=== PATIENT | female | born 1965 | race Caucasian/White ===

== ENCOUNTER 2018-06-04 18:29 | Emergency (ER) | payer OTHER, SELFPAY ==
[2018-06-04 18:29] VITALS: BP 163/92; PULSE 90; RESP 18; TEMP 36.6; O2SAT 93; BMI 31.1
--- NOTE | 2018-06-04 19:18 | ED.VISSUMM ---
- ER Visit Summary Date of Service: 06/04/18 Chief Complaint: Back pain History of Present Illness: The patient is a 52 F prior history of sciatica and migraine headaches. Currently taking Advil as needed. Patient states for the last 3 weeks she has had lower back pain. Radiating across her lower back along her iliac crests. She does have radiation to both legs. Worse on the left. She denies any bowel or bladder incontinence. She has had some intermittent tingling in her left foot. She denies any weakness. She denies any urinary or bowel retention. She is never had back surgery. She denies any fever. No cancer history. No drastic weight change. No falls or trauma. No fever. She states typically her sciatica resolves and this is been lasting and is slightly worse. Physical Examination: Middle-aged female. No acute distress. Vital signs are stable afebrile. HEENT exam unremarkable. Neck nontender. Lungs clear to auscultation bilaterally. Heart regular rate and rhythm. Abdomen is soft and nontender. Normal bowel sounds. No pulsatile mass. Patient moving all 4 extremities. They are neurovascularly intact. Back is tender along the L4-5 area. There is no ecchymosis or bruising. No redness or warmth. Neurologic exam is normal. Normal motor strength and sensation. Both upper and lower extremities. 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 5 out of 5 dorsi and plantar flexion. No cauda equina. She does have a straight leg raise primarily on the left. Pain worsens with leg raise and also radiates down her left buttock and hamstring. There is no foot drop. No motor or sensory loss. Test Results: None Emergency Department Course and Treatment: Continue her Advil for pain. [place] 20 no refill. Follow-up with a local physician MRI if not improving Treatment Plan: Return if increasing pain, incontinence, retention or weakness. [place] for pain Advil for inflammation. Disposition: Discharge Impression: Acute low back pain with radiculopathy This note was generated with [employer] dictation software. It may contain incorrect words, spelling, and punctuation that were not noted in review of the chart prior to signing ED Disposition - Plan for ED Patient: Chief Complaint: Back Referrals: Care Physician,No Primary [Primary Care Provider] -
[2018-06-04 19:22] VITALS: BP 146/82; PULSE 77; RESP 16; O2SAT 98
--- NOTE | 2018-06-04 19:22 | ED.DCSUM_ITS ---
- ER Visit Summary Date of Service: 06/04/18 Chief Complaint: Back pain History of Present Illness: The patient is a 52 F prior history of sciatica and migraine headaches. Currently taking Advil as needed. Patient states for the last 3 weeks she has had lower back pain. Radiating across her lower back along her iliac crests. She does have radiation to both legs. Worse on the left. She denies any bowel or bladder incontinence. She has had some intermittent tingling in her left foot. She denies any weakness. She denies any urinary or bowel retention. She is never had back surgery. She denies any fever. No cancer history. No drastic weight change. No falls or trauma. No fever. She states typically her sciatica resolves and this is been lasting and is slightly worse. Physical Examination: Middle-aged female. No acute distress. Vital signs are stable afebrile. HEENT exam unremarkable. Neck nontender. Lungs clear to auscultation bilaterally. Heart regular rate and rhythm. Abdomen is soft and nontender. Normal bowel sounds. No pulsatile mass. Patient moving all 4 extremities. They are neurovascularly intact. Back is tender along the L4-5 area. There is no ecchymosis or bruising. No redness or warmth. Neurologic exam is normal. Normal motor strength and sensation. Both upper and lower extremities. 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 5 out of 5 dorsi and plantar flexion. No cauda equina. She does have a straight leg raise primarily on the left. Pain worsens with leg raise and also radiates down her left buttock and hamstring. There is no foot drop. No motor or sensory loss. Test Results: None Emergency Department Course and Treatment: Continue her Advil for pain. [place] 20 no refill. Follow-up with a local physician MRI if not improving Treatment Plan: Return if increasing pain, incontinence, retention or weakness. [place] for pain Advil for inflammation. Disposition: Discharge Impression: Acute low back pain with radiculopathy This note was generated with [employer] dictation software. It may contain incorrect words, spelling, and punctuation that were not noted in review of the chart prior to signing ED Disposition - Plan for ED Patient: Chief Complaint: Back Referrals: Care Physician,No Primary [Primary Care Provider] -
--- NOTE | 2018-06-04 19:22 | ED.DEP ---
ED Disposition - Plan for ED Patient: Disposition: Home or Assisted Living Chief Complaint: Back Instructions: ED Neck Back Pain General Prescriptions: Hydrocodone/Acetaminophen [[place] 10-325 Tablet] 1 ea PO Q6H PRN PRN #20 tab PRN Reason: Pain Referrals: Slava Burns MD [STAFF PHYSICIAN] - As soon as possible Javier Torres MD [STAFF PHYSICIAN] - As soon as possible Additional Instructions: Follow up with either Dr. Slava Burns of orthopedics or Dr. Javier Torres the family practice doctor for further evaluation. If this is not improving you may need an MRI to evaluate your back and look for possible degenerative disc disease. Motrin for pain and inflammation. [place] for pain. Plenty of fluids and fiber to prevent constipation. Return if fever, increasing pain, weakness in her lower extremities or bowel or bladder incontinence or retention.
--- NOTE | 2018-06-04 19:25 | DCINST.ED_ITS ---
ED Disposition - Plan for ED Patient: Disposition: Home or Assisted Living Chief Complaint: Back Instructions: ED Neck Back Pain General Prescriptions: Hydrocodone/Acetaminophen [[place] 10-325 Tablet] 1 ea PO Q6H PRN PRN #20 tab PRN Reason: Pain Referrals: Slava Burns MD [STAFF PHYSICIAN] - As soon as possible Javier Torres MD [STAFF PHYSICIAN] - As soon as possible Additional Instructions: Follow up with either Dr. Slava Burns of orthopedics or Dr. Javier Torres the family practice doctor for further evaluation. If this is not improving you may need an MRI to evaluate your back and look for possible degenerative disc disease. Motrin for pain and inflammation. [place] for pain. Plenty of fluids and fiber to prevent constipation. Return if fever, increasing pain, weakness in her lower extremities or bowel or bladder incontinence or retention.
[2018-06-04] MEDS: HYDROcodone Bitartrate/Apap 5/325 Tablet PO (19:31)
--- OUTSIDE RECORDS SUMMARY | 2018-07-31 10:04 | XMS RPT_ITS ---
:1965 Author Organization OHIP Care Team Providers Name Role Phone Patrice Seb Attending Unavailable Primay Care Physicia, No Primary Care Unavailable Javier Torres Attending Unavailable Javier Torres Referring Unavailable Primay Care Physicia, No Primary Care Unavailable Leonard Franks Attending Unavailable Leonard Franks Primary Care Unavailable Leonard Franks Referring Unavailable PROBLEMS PROBLEMS DATE TYPE CONDITION / CODE ATTENDING STATUS SOURCE 06/14/2018 Unknown Z72.0 - Tobacco use Loenard Franks / Z72.0(ICD-10) E [facility] Repository 06/14/2018 Unknown M25.559 - Pain in Leonard Franks unspecified hip / [facility] M25.559(ICD-10) Hospital Repository 06/14/2018 Unknown 305.1 - Tobacco use Leonard Franks disorder / [facility] 305.1(ICD-9) Hospital Repository 06/14/2018 Unknown 278.01 - Morbid Leonard Franks obesity / [facility] 278.01(ICD-9) Hospital Repository 06/14/2018 Unknown E66.01 - Morbid Leonard Franks (severe) obesity due E [facility] to excess calories / Hospital E66.01(ICD-10) Repository 06/07/2018 Unknown M54.42 - Javier Julio Active [place] with sciatica, left Community side / Hospital M54.42(ICD-10) Repository 06/05/2018 Unknown M51.37 - Other Seb Ibrahim Active [place] intervertebral disc Community degeneration, Hospital lumbosacral region / Repository M51.37(ICD-10) PROCEDURES PROCEDURES No Procedure Records FoundRESULTS RESULTS HIPS B/L MIN 2 Observed: 06/14/2018 Status: F Source: [place] VIEWS W/ PELVIS 11:59 [place] [facility] [place] [facility] Imaging Services [address] [place] [address] Hips B/L min 2 views w/ Pelvis MR#: [id number] Acct: [id number] Name: REBECCA MARIN Rep #: [id number] : 1965 F 52 From: Nellie Burns MD PCP: Leonard Franks MD Status: REG CLI Study: Hips B/L min 2 views w/ Pelvis Date of Exam: 06/14/18 Exam# [id number] Ordering Dr: Leonard Franks MD STUDY: X-RAY - BILATERAL HIPS WITHOUT PELVIS REASON FOR EXAM: Female, 52 years old. Bilateral hip pain. Right hip pain is worse on the left. TECHNIQUE: 2 views of the right hip, and 2 views of the left hip were obtained. COMPARISON: Prior comparison studies are not available for review at this time. FINDINGS: Right Hip: Normal right femoral head, neck, intertrochanteric region and visualized proximal femur. Normal right acetabulum. Normal right hip joint. Left Hip: Normal left femoral head, neck, intertrochanteric region and visualized proximal femur. Normal left acetabulum. Normal left hip joint. Normal bilateral superior and inferior pubic rami , ischial tuberosities and pubic symphysis. RAD/Hips B/L min 2 views w/ Pelvis IMPRESSION: No radiographic evidence for acute fracture. Electronically Signed: Nellie Bunrs MD at 10:01 EST , Service support , CC: Leonard Franks MD [employer] Professor: Signed CBC W/DIFF, AUTOMATED Collected: 06/14/2018 Status: F Source: [place] 11:51 AM [facility] [place] TYPE CODE TESTS RESULT OUT OF RANGE REFERENCE UNITS LAB L100.1000 4.4-11.0 K/mm3 Normal WBC 10.9 LAB L100.1200 4.2-5.4 M/mm3 Normal RBC 5.24 LAB L100.1300 12.0-15.0 g/dl High HGB 16.2 LAB L100.1400 37-47 % High HCT 48.6 LAB L100.1500 81-99 fL Normal MCV 92.7 LAB L100.1600 27.0-32.0 pg Normal MCH 30.9 LAB L100.1700 32-36 g/gl Normal MCHC 33.3 LAB L100.1810 11.6-14.6 % Normal RDW CV 13.2 LAB L100.1820 35.1-43.9 fl High RDW SD 45.1 LAB L100.1900 150-450 K/mm3 Normal PLT 218 LAB L100.2000 6.2-12.0 fl Normal MPV 11.2 LAB L100.2100 47-70 % Normal NEUT% 64.8 LAB L100.2200 19-41 % Normal LY% 27.9 LAB L100.2300 0-10 % Normal MONO% 4.6 LAB L100.2400 0-5 % Normal EO% 2.3 LAB L100.2500 0-1 % Normal BASO% 0.2 LAB L100.2550 0.0-0.9 % Normal IM GRAN % 0.200 Result Comment: IG% - Immature Granulocytes (promyelocytes, myelocytes and metamyelocytes) > 1% indicates that a LEFT SHIFT is Present. LAB L100.2620 2.0-7.7 X10 3/uL Normal Absolute Neut 7.1 LAB L100.2720 0.83-4.51 X10 3/ul Normal Absolute Lymph 3.04 Performed By: #### L100.0100, L500.4050, L500.4100, L501.9520 #### [facility] [address] [place], [place], [address] COMPREHENSIVE METABOLIC Collected: 06/14/2018 Status: F Source: [place] SERRANO 11:51 AM [facility] [place] Order Comment: UTO URINE SPECIMEN TYPE CODE TESTS RESULT OUT OF RANGE REFERENCE UNITS LAB L501.0100 74-106 mg/dL Normal GLU 89 Result Comment: Please note revised GLUCOSE reference range effective 2017. LAB L501.1000 7-18 mg/dL Normal BUN 17 LAB L501.1100 0.55-1.02 mg/dL Normal CREAT,SERUM 0.86 Result Comment: The validity of the calculated GFR AND GFRAA in patients over 70 years has not been determined. Clinical correlation is essential. LAB L501.1110 >60 mL/min Normal EST GFR 74 Result Comment: Non- GFR Calc LAB L501.1115 >60 mL/min Normal EST GFR - AA 90 Result Comment: GFR Calc LAB L501.1300 10-20 RATIO Normal BUN/CRE 19.8 LAB L501.1500 6.4-8.2 g/dL T Normal PROT 8.0 LAB L501.1800 3.2-5.0 g/dL Normal ALB 3.8 LAB L501.1950 2.2-4.2 g/dL Normal GLOB 4.2 LAB L501.2000 0.9-2.4 RATIO Normal A/G 0.9 LAB L501.2200 8.5-10.1 mg/dL CA Normal 9.2 LAB L501.4100 15-37 U/L Normal AST 17 LAB L501.4305 45-117 U/L High ALK P 129 LAB L501.4405 13-56 U/L Normal ALT 44 LAB L501.4600 0.20-1.00 mg/dL T Normal BILI 0.50 LAB L501.5300 136-145 mmol/L NA Normal 138 LAB L501.5600 3.5-5.1 mmol/L K Normal 4.5 LAB L501.5900 98-107 mmol/L CL Normal 101 LAB L501.6100 21.0-32.0 mmol/L Normal CO2 30.0 LAB L501.6200 5-15 Normal GAP 7 Performed By: #### L100.0100, L500.4050, L500.4100, L501.9520 #### [facility] [address] [place], [address] LIPID PROFILE Collected: 06/14/2018 Status: F Source: [place] 11:51 AM [facility] [place] Order Comment: UTO URINE SPECIMEN TYPE CODE TESTS RESULT OUT OF RANGE REFERENCE UNITS LAB L501.4900 200 mg/dL High CHOL 245 Result Comment: <200 mg/dL Desirable 200-240 mg/dL Borderline >240 mg/dL High Risk LAB L501.5000 mg/dL High TRIG 214 Result Comment: The drugs N-Acetylcysteine and Metamizole may falsely depress this assay. Serum Triglycerides Reference Interval Normal <150 mg/dL Borderline high 150 - 199 mg/dL High 200 - 499 mg/dL Very High > or = 500 mg/dL LAB L501.6400 mg/dL Normal HDL 43 Result Comment: The drugs N-Acetylcysteine and Metamizole may falsely depress this assay. Reference Range HDL <40 mg/dL Low HDL Cholesterol HDL >or= 60 mg/dL High HDL Cholesterol LAB L501.6500 0-130 mg/dL High LDL 159 LAB L501.6600 5-40 mg/dL High VLDL 43 Performed By: #### L100.0100, L500.4050, L500.4100, L501.9520 #### [facility] [address] [place], [address] THYROID STIM HORMONE Collected: 06/14/2018 Status: F Source: [place] (TSH) 11:51 AM [facility] [place] Order Comment: UTO URINE SPECIMEN TYPE CODE TESTS RESULT OUT OF RANGE REFERENCE UNITS LAB L501.9520 0.358-3.74 uIU/mL Normal TSH 1.15 Performed By: #### L100.0100, L500.4050, L500.4100, L501.9520 #### [facility] [address] [place], [address] L/S SPINE MIN 4 Observed: 06/07/2018 Status: F Source: [place] VIEWS 12:31 PM [facility] RE[facility]IT[facility] Imaging Services [address] [place] [address] L/S Spine Min 4 Views MR#: [id number] Acct: [id number] Name: REBECCA MARIN Rep #: [id number] : 1965 F 52 From: Cosme Whittaker MD PCP: Care Physician, No Primary Status: REG CLI Study: L/S Spine Min 4 Views Date of Exam: 06/07/18 Exam# [id number] Ordering Dr: Javier Torres MD HISTORY: CHRONIC LBP, LEFT SIDED SCIATICA COMPARISON: None FINDINGS: XR Spine Lumbar Min 5 views Straightening of the lumbar spine with loss of the normal lumbar lordosis. Lumbar vertebra appear normal in height. No fracture or suspicious bony lesion. Lumbar disc space heights appear preserved. Intact posterior elements. No spondylolisthesis. SI joints appear preserved. 8 mm rounded radiopacity which appears to lie within the transverse colon, unrelated to the kidneys. Aortoiliac atherosclerotic calcifications. RAD/L/S Spine Min 4 Views IMPRESSION: 1. Lumbar spine shows no suspicious lesion or significant arthritis. 2. Loss of the normal lumbar lordosis which may be positional or related to paravertebral muscle spasm. 3. Atherosclerotic calcifications. at 0625 Reported and signed by: Cosme Whittaker MD Electronically Signed: Cosme Whittaker, at 6:23 EST Tel , Service support , CC: No Primary Care Physician; Javier Torres MD [employer] Professor: Signed EMERGENCY DEPARTMENT Observed: 06/04/2018 Status: F Source: [place] SUMMARY 11:04 PM [facility] REPOSITORY [facility] Medical Records Department [address] [place] [address] Emergency Department Summary 06/04/18 191 MR#: [id number] Acct: [id number] Name: REBECCA MARIN Rep #: [id number] : 1965 52 From: Seb Ibrahim MD PCP: Care Physician, No Primary Status: DEP ER - ER Visit Summary Date of Service: 06/04/18 Chief Complaint: Back pain History of Present Illness: The patient is a 52 F prior history of sciatica and migraine headaches. Currently taking Advil as needed. Patient states for the last 3 weeks she has had lower back pain. Radiating across her lower back along her iliac crests. She does have radiation to both legs. Worse on the left. She denies any bowel or bladder incontinence. She has had some intermittent tingling in her left foot. She denies any weakness. She denies any urinary or bowel retention. She is never had back surgery. She denies any fever. No cancer history. No drastic weight change. No falls or trauma. No fever. She states typically her sciatica resolves and this is been lasting and is slightly worse. Physical Examination: Middle-aged female. No acute distress. Vital signs are stable afebrile. HEENT exam unremarkable. Neck nontender. Lungs clear to auscultation bilaterally. Heart regular rate and rhythm. Abdomen is soft and nontender. Normal bowel sounds. No pulsatile mass. Patient moving all 4 extremities. They are neurovascularly intact. Back is tender along the L4-5 area. There is no ecchymosis or bruising. No redness or warmth. Neurologic exam is normal. Normal motor strength and sensation. Both upper and lower extremities. Normal dorr operator strength. 5 out of 5 dorsi and plantar flexion. No cauda equina. She does have a straight leg raise primarily on the left. Pain worsens with leg raise and also radiates down her left buttock and hamstring. There is no foot drop. No motor or sensory loss. Test Results: None Emergency Department Course and Treatment: Continue her Advil for pain. [place] 20 no refill. Follow-up with a local physician MRI if not improving Treatment Plan: Return if increasing pain, incontinence, retention or weakness. [place] for pain Advil for inflammation. Disposition: Discharge Impression: Acute low back pain with radiculopathy This note was generated with [employer] dictation software. It may contain incorrect words, spelling, and punctuation that were not noted in review of the chart prior to signing ED Disposition - Plan for ED Patient: Chief Complaint: Back Referrals: Care Physician,No Primary [Primary Care Provider] - What to do if you have Problems For any increased pain, shortness of breath, bleeding, nausea or vomiting, chest pain, or any unexpected problems, contact your Primary Care Provider. Call [facility] ([phone]) or report to the closest Emergency Room. Call 911 if necessary. 06/04/182303 <Electronically signed by Seb Ibrahim MD> Date Seb Ibrahim MD Cosigner Signature (If Indicated): Date CC: No Primary Care Physician DISCHARGE INSTRUCTION Observed: 06/04/2018 Status: F Source: [place] 11:04 PM [facility] [place] [place] [facility] Medical Records Department [address] [place] [address] Discharge Instruction 06/04/181921 MR#: [id number] Acct: [id number] Name: REBECCA MARIN Rep #: [id number] : 1965 52 From: Seb Ibrahim MD PCP: Care Physician, No Primary Status: DEP ER ED Disposition - Plan for ED Patient: Disposition: Home or Assisted Living Chief Complaint: Back Instructions: ED Neck Back Pain General Prescriptions: Hydrocodone/Acetaminophen [[place] 10-325 Tablet] 1 ea PO Q6H PRN PRN #20 tab PRN Reason: Pain Referrals: Slava Burns MD [STAFF PHYSICIAN] - As soon as possible Javier Torres MD [STAFF PHYSICIAN] - As soon as possible Additional Instructions: Follow up with either Dr. Slava Burns of orthopedics or Dr. Javier Torres the family practice doctor for further evaluation. If this is not improving you may need an MRI to evaluate your back and look for possible degenerative disc disease. Motrin for pain and inflammation. [place] for pain. Plenty of fluids and fiber to prevent constipation. Return if fever, increasing pain, weakness in her lower extremities or bowel or bladder incontinence or retention. What to do if you have Problems For any increased pain, shortness of breath, bleeding, nausea or vomiting, chest pain, or any unexpected problems, contact your Primary Care Provider. Call [facility] ([phone]) or report to the closest Emergency Room. Call 911 if necessary. 06/04/18 4464 <Electronically signed by Seb Ibrahim MD> Date Seb Ibrahim MD Cosigner Signature (If Indicated): Date CC: No Primary Care Physician CBC Collected: 03/21/2018 Status: F Source: [facility] 7:40 AM [facility] REPOSITORY TYPE CODE TESTS RESULT OUT OF REFERENCE UNITS RANGE LAB WBC(LOINC) 4.50-10.80 10 3/mcL WBC 9.50 LAB RBCCT(LOINC 4.10-5.30 10 6/mcL ) RBC 5.04 LAB HGB(LOINC) 12.0-16.0 G/dL Hgb 15.5 LAB HCT(LOINC) 34.0-46.0 % Hct 45.9 LAB MCV(LOINC) 80.0-99.0 fL MCV 91.0 LAB MCH(LOINC) 27.0-33.0 pg MCH 30.8 LAB MCHC(LOINC) 32.0-36.0 G/dL MCHC 33.8 LAB RDW(LOINC) 11.5-15.5 % RDW 13.6 LAB PLT(LOINC) 150-450 10 3/mcL Platelet 198 LAB MPV(LOINC) 6.6-10.5 fL MPV 9.8 Performed By: #### CBC, ADIFF, ANEU, BILAD, TSH, CMP, GFR, LIPID, A1C #### [place] [address] .AUTO DIFF Collected: 03/21/2018 Status: F Source: [facility] 7:40 AM [facility] REPOSITORY TYPE CODE TESTS RESULT OUT OF REFERENCE UNITS RANGE LAB MCKENZIE(LOINC) 50.0-75.0 % Neutrophil % 58.2 LAB LYM(LOINC) 20.0-40.0 % Lymphocyte % 30.5 LAB MON(LOINC) 2.0-13.0 % Monocyte % 7.9 LAB EO(LOINC) 0.0-6.0 % Eosinophil % 2.7 LAB BAS(LOINC) 0.0-2.5 % Basophil % 0.7 LAB ABLYM(LOIN 0.90-4.32 10 3/mcL C) Lymphocyte, 2.90 Absolute LAB MICHEL(LOINC 0.09-1.40 10 3/mcL ) Monocyte, 0.80 Absolute LAB AEOS(LOINC 0.00-0.65 10 3/mcL ) Eosinophil, 0.30 Absolute LAB ABAS(LOINC 0.00-0.27 10 3/mcL ) Basophil, 0.10 Absolute Performed By: #### CBC, ADIFF, ANEU, BILAD, TSH, CMP, GFR, LIPID, A1C #### [place] [address] .NEUABS Collected: 03/21/2018 Status: F Source: [facility] 7:40 AM [facility] REPOSITORY TYPE CODE TESTS RESULT OUT OF REFERENCE UNITS RANGE LAB ANEU(LOINC) 2.25-8.10 10 3/mcL Neutrophil, 5.50 Absolute Performed By: #### CBC, ADIFF, ANEU, BILAD, TSH, CMP, GFR, LIPID, A1C #### [place] [address] BILAD Collected: 03/21/2018 Status: F Source: [facility] 7:40 AM [facility] REPOSITORY TYPE CODE TESTS RESULT OUT OF REFERENCE UNITS RANGE LAB BILAD(LOINC 0.0-0.4 mg/dL ) Bili Direct <0.1 Performed By: #### CBC, ADIFF, ANEU, BILAD, TSH, CMP, GFR, LIPID, A1C #### [place] [address] TSH Collected: 03/21/2018 Status: F Source: [facility] 7:40 AM [facility] REPOSITORY TYPE CODE TESTS RESULT OUT OF RANGE REFERENCE UNITS LAB TSH(LOINC) 0.360-3.740 mcIU/mL TSH 0.950 Result Comment: Please note as of 01/20/17 new pediatric reference intervals were added for this test. Performed By: #### CBC, ADIFF, ANEU, BILAD, TSH, CMP, GFR, LIPID, A1C #### [address] [address] CMP Collected: 03/21/2018 Status: F Source: [facility] 7:40 AM [facility] REPOSITORY TYPE CODE TESTS RESULT OUT OF REFERENCE UNITS RANGE LAB GLU(LOINC) 70-110 mg/dL Glucose Level 87 LAB NA(LOINC) 136-145 mEq/L Sodium Level 141 LAB K(LOINC) 3.5-5.0 mEq/L Potassium Level 4.2 LAB CL(LOINC) 98-110 mEq/L Chloride 106 LAB CO2(LOINC) 22-32 mEq/L CO2 25 LAB EBAL(LOINC 4.0-15.0 mEq/L ) Electrolyte Balance 10.0 LAB BUN(LOINC) 8.0-22.0 mg/dL BUN 13.0 LAB CRE(LOINC) 0.50-1.20 mg/dL Creatinine Lvl (s) 0.76 LAB BC(LOINC) 10.0-22.0 ratio BUN/Creatinine 17.1 Ratio LAB CA(LOINC) 8.4-10.1 mg/dL Calcium Lvl 8.8 LAB PROT(LOINC 6.0-8.5 G/dL ) Total Protein 7.1 LAB ALB(LOINC) 3.2-4.8 G/dL Albumin Level 3.5 LAB GLB(LOINC) 1.5-3.8 G/dL Globulin 3.6 LAB AG(LOINC) 0.9-1.6 ratio A/G Ratio 1.0 LAB BILT(LOINC 0.2-1.2 mg/dL ) Bili Total 0.3 LAB AP(LOINC) 38-126 U/L Alk Phos 124 LAB AST(LOINC) 8-34 U/L AST/SGOT 20 LAB ALT(LOINC) 10-49 U/L ALT/SGPT 40 Performed By: #### CBC, ADIFF, ANEU, BILAD, TSH, CMP, GFR, LIPID, A1C #### [address] [address] .GFR Collected: 03/21/2018 Status: F Source: [facility] 7:40 AM [facility] REPOSITORY TYPE CODE TESTS RESULT OUT OF REFERENCE UNITS RANGE LAB GFRAA(LOINC ml/min/1.73 ) sqm GFR >60 [place] Result Comment: GFR Population mean for , Non- Americans Ages 20-29 = 116 mL/min/1.73 sq.m. Ages 30-39 = 107 mL/min/1.73 sq.m. Ages 40-49 = 99 mL/min/1.73 sq.m. Ages 50-59 = 93 mL/min/1.73 sq.m. Ages 60-69 = 85 mL/min/1.73 sq.m. Ages 70+ = 75 mL/min/1.73 sq.m. Chronic Kidney Disease: Less than 60 mL/min/1.73 square meters End Stage Renal Disease: Less than 15 mL/min/1.73 square meters LAB GFRNO(LOINC) ml/min/1.73sqm GFR Non- >60 Result Comment: GFR Population mean for , Non- Americans Ages 20-29 = 116 mL/min/1.73 sq.m. Ages 30-39 = 107 mL/min/1.73 sq.m. Ages 40-49 = 99 mL/min/1.73 sq.m. Ages 50-59 = 93 mL/min/1.73 sq.m. Ages 60-69 = 85 mL/min/1.73 sq.m. Ages 70+ = 75 mL/min/1.73 sq.m. Chronic Kidney Disease: Less than 60 mL/min/1.73 square meters End Stage Renal Disease: Less than 15 mL/min/1.73 square meters Performed By: #### CBC, ADIFF, ANEU, BILAD, TSH, CMP, GFR, LIPID, A1C #### [place] [address] LIPID Collected: 03/21/2018 Status: F Source: [facility] 7:40 AM [facility] REPOS[facility] TYPE CODE TESTS RESULT OUT OF REFERENCE UNITS RANGE LAB CHOL(LOINC 50-199 mg/dL ) Cholesterol High 211 Result Comment: Cholesterol Reference Interval: Less than 200 Desirable 200-239 Borderline high risk 240 and above High risk LAB TRIG(LOINC) 3-149 mg/dL Triglycerides High 208 Result Comment: Triglyceride Reference Interval: Less than 150 Normal 150-199 Borderline high risk 200-499 High risk 500 or higher Very high risk LAB HD(LOINC) 40-59 mg/dL HDL Low Cholesterol 35 Result Comment: HDL Reference Interval: Less than 40 Low - high risk 60 or above Optimal/lowers risk LAB LDL(LOINC) 0-129 mg/dL LDL High Cholesterol 134 Result Comment: LDL is a calculated result and requires a 12-hr fast. LDL Reference Interval: Less than 100 Optimal 100-129 Near or above optimal 130-159 Borderline high risk 160-189 High risk 190 and above Very high risk Performed By: #### CBC, ADIFF, ANEU, BILAD, TSH, CMP, GFR, LIPID, A1C #### [place] [id number] [place] [address] A1C Collected: 03/21/2018 Status: F Source: [facility] 7:40 AM [facility] REPOSITORY TYPE CODE TESTS RESULT OUT OF RANGE REFERENCE UNITS LAB A1C(LOINC) 4.0-6.0 % Hgb A1c 5.8 Performed By: #### CBC, ADIFF, ANEU, BILAD, TSH, CMP, GFR, LIPID, A1C #### [address] [address] ALLERGIES ALLERGIES DATE TYPE / CODE NAME / CODE REACTION SEVERITY SOURCE 06/04/2018 Drug Penicillins/ Swelling Unknown [facility] Allergy/4160 [id number](R Hospital [address](SNOMED XNORM) Repository CT) ENCOUNTERS ENCOUNTERS ADMIT/DISCHARGE ACCOUNT ADMITTING ENCOUNTER LOCATION SOURCE NUMBER CLASS 06/14/2018 [id number] Ambulatory [place] Alfredo 9 [facility] ing:MTRAD Repository 06/07/2018 [id number] Ambulatory [place] Alfredo 2 [facility] ing:MTRAD Repository 06/04/2018/ [id number] Emergency [place] Alfredo 8 1 [facility] ing:ED Repository PAYERS PAYERS ENCOUNTER GUARANTOR PAYER SUBSCRIBER SOURCE 06/14/2018 REBECCA Davis Primary REBECCA CARCAMO N [facility] Insurance:Jose RODRIGUEZ: [place], [place] icy Number: [id number] Hospital [address]Nme: [phone] [id number] Repository [phone] () Date:[id number] [address] [place] [id number]: 06/14/2018 Secondary NOT GIVENUNK [place] Insurance:SELF PAY [facility] Number: Effective Repository Date:2018-06-14 06/07/2018 REBECCA Davis Primary REBECCA Ryan [address] [facility] [place] Number: [id number] Hospital 2020[address]Hlb: 330 [id number] Repository [phone] () Date:[id number] [address] [place] [id number]: 06/07/2018 Secondary NOT GIVENUNK [place] Insurance:SELF PAY [facility] Number: Effective Repository Date:2018-06-07 06/04/2018 REBECCA Davis Primary REBECCA Ryan [address] [facility] [place] Number: [id number] Hospital [address]Xit: 330 [id number] Repository [phone] () Date:[id number] [address] [place] [phone]: 06/04/2018 Secondary NOT GIVENUNK [place] Insurance:SELF PAY [facility] Number: Effective Repository Date:2018-06-04
== END 2018-06-04 19:33 | disposition home or self-care (01) ==
PROVIDERS: Emergency Provider Emergency Medicine
DX: M54.5 Low back pain (principal); M54.10 Radiculopathy, site unspecified; Z72.0 Tobacco use
CPT/HCPCS: 99283

== ENCOUNTER → 2018-06-07 12:27 | Outpatient (CLI) | payer OTHER, SELFPAY ==
[2018-06-04 18:29] VITALS: BMI 31.1
--- NOTE | 2018-06-07 12:31 | RAD_ITS ---
HISTORY: CHRONIC LBP, LEFT SIDED SCIATICA COMPARISON: None FINDINGS: XR Spine Lumbar Min 5 views Straightening of the lumbar spine with loss of the normal lumbar lordosis. Lumbar vertebra appear normal in height. No fracture or suspicious bony lesion. Lumbar disc space heights appear preserved. Intact posterior elements. No spondylolisthesis. SI joints appear preserved. 8 mm rounded radiopacity which appears to lie within the transverse colon, unrelated to the kidneys. Aortoiliac atherosclerotic calcifications. RAD/L/S Spine Min 4 Views IMPRESSION: 1. Lumbar spine shows no suspicious lesion or significant arthritis. 2. Loss of the normal lumbar lordosis which may be positional or related to paravertebral muscle spasm. 3. Atherosclerotic calcifications. at 0680 Reported and signed by: Cosme Whittaker MD Electronically Signed: Cosme Whittaker, at 6:23 EST Tel , Service support ,
--- OUTSIDE RECORDS SUMMARY | 2018-08-02 11:01 | XMS RPT_ITS ---
[...] SOURCE 06/14/2018 Unknown Z72.0 - Tobacco use Leonard Franks / Z72.0(ICD-10) E [facility] Repository 06/14/2018 Unknown M25.559 - Pain [...] 06/07/2018 Unknown M54.42 - Javier Julio Active [place] with sciatica, left Community side / Hospital M54.42(ICD-10) Repository 06/05/2018 Unknown M51.37 - Other Seb Ibrahim Active [place] intervertebral disc Community degeneration, Hospital lumbosacral region / Repository M51.37(ICD-10) PROCEDURES PROCEDURES No Procedure Records FoundRESULTS RESULTS HIPS B/L MIN 2 Observed: 06/14/2018 Status: F Source: [place] VIEWS W/ PELVIS 11:59 AM [facility] REPOSITORY [facility] Imaging Services [address] [place] [address] Hips B/L min 2 views w/ Pelvis MR#: [id number] Acct: [id number] Name: REBECCA MARIN Rep #: [id number] : 1965 F 52 From: Nellie Burns MD PCP: Leonard Franks MD Status: REG CLI Study: Hips B/L min 2 views w/ Pelvis Date of Exam: 06/14/18 Exam# [id number] Ordering Dr: Leonard Franks MD STUDY: X-RAY [...] evidence for acute fracture. Electronically Signed: Nellie Burns MD at 10:01 EST , Service support , CC: Leonard Franks MD Rock Climbing Team Member: Signed CBC W/DIFF, AUTOMATED Collected: 06/14/2018 Status: F Source: [place] 11:51 AM [facility] REPOSITORY TYPE CODE TESTS RESULT OUT OF [...] By: #### L100.0100, L500.4050, L500.4100, L501.9520 #### [facility] [address] [place], [place], [address] COMPREHENSIVE METABOLIC Collected: 06/14/2018 Status: F Source: [place] SERRANO 11:51 AM [facility] REPOSITORY Order Comment: UTO URINE SPECIMEN TYPE [...] By: #### L100.0100, L500.4050, L500.4100, L501.9520 #### [facility] [address] [place], [address] LIPID PROFILE Collected: 06/14/2018 Status: F Source: [place] 11:51 AM [facility] REPOSITORY Order Comment: UTO URINE SPECIMEN TYPE [...] By: #### L100.0100, L500.4050, L500.4100, L501.9520 #### [facility] [address] [place], [address] THYROID STIM HORMONE Collected: 06/14/2018 Status: F Source: [place] (TSH) 11:51 AM [facility] REPOSITORY Order Comment: UTO URINE SPECIMEN TYPE CODE TESTS RESULT OUT OF RANGE REFERENCE UNITS LAB L501.9520 0.358-3.74 uIU/mL Normal TSH 1.15 Performed By: #### L100.0100, L500.4050, L500.4100, L501.9520 #### [facility] [address] [place], [address] L/S SPINE MIN 4 Observed: 06/07/2018 Status: F Source: [place] VIEWS 12:31 PM [facility] REPOSITORY [facility] Imaging Services [address] [place] [address] L/S Spine Min 4 Views MR#: [id number] Acct: [id number] Name: REBECCA MARIN Rep #: [id number] : 1965 F 52 From: Cosme Whittaker MD PCP: Care Physician, No Primary Status: REG CLI Study: L/S Spine Min 4 Views Date of Exam: 06/07/18 Exam# [id number] Ordering Dr: Javier Torres MD HISTORY: CHRONIC [...] No Primary Care Physician; Javier Torres MD Rock Climbing Team Member: Signed EMERGENCY DEPARTMENT Observed: 06/04/2018 Status: F Source: [place] SUMMARY 11:04 PM [facility] REPOSITORY [facility] Medical Records Department [address] [place] [address] Emergency Department Summary 06/04/18 191 MR#: [id number] Acct: [id number] Name: REBECCA MARIN Rep #: [id number] : 1965 52 From: Seb Ibrahim MD [...] sensation. Both upper and lower extremities. Normal suspension cord tier strength. 5 out of 5 dorsi and plantar flexion. No cauda equina. She does have a straight leg raise primarily on the left. Pain worsens with leg raise and also radiates down her left buttock and hamstring. There is no foot drop. No motor or sensory loss. Test Results: None Emergency Department Course and Treatment: Continue her Advil for pain. [place] 20 no refill. Follow-up with a local physician MRI if not improving Treatment Plan: Return if increasing pain, incontinence, retention or weakness. [place] for pain Advil for inflammation. Disposition: Discharge Impression: Acute low back pain with radiculopathy This note was generated with [employer] dictation software. It may contain incorrect words, [...] your Primary Care Provider. Call [facility] ([phone]) or report to the closest Emergency Room. Call 911 if necessary. 06/04/182303 <Electronically signed by Seb Ibrahim MD> Date Seb Ibrahim MD Cosigner Signature (If Indicated): Date CC: No Primary Care Physician DISCHARGE INSTRUCTION Observed: 06/04/2018 Status: F Source: [place] 11:04 PM [facility] REPOSITORY [facility] Medical Records Department [address] [place] [address] Discharge Instruction 06/04/181921 MR#: [id number] Acct: [id number] Name: REBECCA MARIN Rep #: [id number] : 1965 52 From: Seb Ibrahim MD PCP: Care Physician, No Primary Status: DEP ER ED Disposition - Plan for ED Patient: Disposition: Home or Assisted Living Chief Complaint: Back Instructions: ED Neck Back Pain General Prescriptions: Hydrocodone/Acetaminophen [[place] 10-325 Tablet] 1 ea PO Q6H PRN [...] disc disease. Motrin for pain and inflammation. [place] for pain. Plenty of fluids and fiber to prevent constipation. Return if fever, increasing pain, weakness in her lower extremities or bowel or bladder incontinence or retention. What to do if you have Problems For any increased pain, shortness of breath, bleeding, nausea or vomiting, chest pain, or any unexpected problems, contact your Primary Care Provider. Call [facility] ([phone]) or report to the closest Emergency Room. Call 911 if necessary. 06/04/18 7824 <Electronically signed by Seb Ibrahim MD> Date Seb Ibrahim MD Cosigner Signature (If Indicated): Date CC: No Primary Care Physician CBC Collected: 03/21/2018 Status: F Source: [facility] 7:40 AM [facility] EMERGENCY DEPARTMENT REPOSITORY TYPE CODE TESTS RESULT OUT OF [...] 6.6-10.5 fL MPV 9.8 Performed By: #### LIPID, ANEU, ADIFF, TSH, CMP, CBC, GFR, BILAD, A1C #### [place] [address] .AUTO DIFF Collected: 03/21/2018 Status: F Source: [facility] 7:40 AM [facility] EMERGENCY DEPARTMENT REPOSITORY TYPE CODE TESTS RESULT OUT OF [...] ) Basophil, 0.10 Absolute Performed By: #### LIPID, ANEU, ADIFF, TSH, CMP, CBC, GFR, BILAD, A1C #### [place] [address] .NEUABS Collected: 03/21/2018 Status: F Source: [facility] 7:40 AM [facility] EMERGENCY DEPARTMENT REPOSITORY TYPE CODE TESTS RESULT OUT OF REFERENCE UNITS RANGE LAB ANEU(LOINC) 2.25-8.10 10 3/mcL Neutrophil, 5.50 Absolute Performed By: #### LIPID, ANEU, ADIFF, TSH, CMP, CBC, GFR, BILAD, A1C #### [place] [address] BILAD Collected: 03/21/2018 Status: F Source: [facility] 7:40 AM [facility] EMERGENCY DEPARTMENT REPOSITORY TYPE CODE TESTS RESULT OUT OF REFERENCE UNITS RANGE LAB BILAD(LOINC 0.0-0.4 mg/dL ) Bili Direct <0.1 Performed By: #### LIPID, ANEU, ADIFF, TSH, CMP, CBC, GFR, BILAD, A1C #### [place] [address] TSH Collected: 03/21/2018 Status: F Source: [facility] 7:40 AM [facility] EMERGENCY DEPARTMENT REPOSITORY TYPE CODE TESTS RESULT OUT OF RANGE REFERENCE UNITS LAB TSH(LOINC) 0.360-3.740 mcIU/mL TSH 0.950 Result Comment: Please note as of 01/20/17 new pediatric reference intervals were added for this test. Performed By: #### LIPID, ANEU, ADIFF, TSH, CMP, CBC, GFR, BILAD, A1C #### [address] [address] CMP Collected: 03/21/2018 Status: F Source: [facility] 7:40 AM [facility] EMERGENCY DEPARTMENT REPOSITORY TYPE CODE TESTS RESULT OUT OF [...] 10-49 U/L ALT/SGPT 40 Performed By: #### LIPID, ANEU, ADIFF, TSH, CMP, CBC, GFR, BILAD, A1C #### [address] [address] .GFR Collected: 03/21/2018 Status: F Source: [facility] 7:40 AM [facility] EMERGENCY DEPARTMENT REPOSITORY TYPE CODE TESTS RESULT OUT OF REFERENCE UNITS RANGE LAB GFRAA(LOINC ml/min/1.73 ) sqm GFR >60 Citizen Of [place] Result Comment: GFR Population mean for , [...] 15 mL/min/1.73 square meters Performed By: #### LIPID, ANEU, ADIFF, TSH, CMP, CBC, GFR, BILAD, A1C #### [place] [address] LIPID Collected: 03/21/2018 Status: F Source: [facility] 7:40 AM [facility] REPOSITORY TYPE CODE TESTS [...] above Very high risk Performed By: #### LIPID, ANEU, ADIFF, TSH, CMP, CBC, GFR, BILAD, A1C #### [place] [id number] [place] [address] A1C Collected: 03/21/2018 Status: F Source: [facility] 7:40 AM [facility] REPOSITORY TYPE CODE TESTS RESULT OUT OF RANGE REFERENCE UNITS LAB A1C(LOINC) 4.0-6.0 % Hgb A1c 5.8 Performed By: #### LIPID, ANEU, ADIFF, TSH, CMP, CBC, GFR, BILAD, A1C #### [place] [id number] [place] [address] ALLERGIES ALLERGIES DATE TYPE / CODE NAME / CODE REACTION SEVERITY SOURCE 06/04/2018 Drug Penicillins/ Swelling Unknown [facility] Allergy/4160 [id number](R Hospital [address]805(SNOMED XNORM) Repository CT) ENCOUNTERS ENCOUNTERS ADMIT/DISCHARGE ACCOUNT ADMITTING ENCOUNTER LOCATION SOURCE NUMBER CLASS 06/14/2018 [id number] Ambulatory [place] [address] [facility] ing:MTRAD Repository 06/07/2018 [id number] Ambulatory [place] [address] [facility] ing:MTRAD Repository 06/04/2018/ [id number] Emergency [place] Alfred[place] [address] [facility] ing:ED Repository PAYERS PAYERS ENCOUNTER GUARANTOR PAYER SUBSCRIBER SOURCE 06/14/2018 REBECCA Davis Primary REBECCA MARIN[address] [facility] Insurance:Jose RODRIGUEZ: [place], [place] icy Number: [id number] Hospital [address]Bzq: [phone] [id number] Repository [phone] () Date:[id number] [address] [place] [phone]: 06/14/2018 Secondary NOT GIVENUNK [place] Insurance:SELF PAY [facility] Number: Effective Repository Date:2018-06-14 06/07/2018 REBECCA Davis Primary REBECCA Ryan [address] [facility] [place] Number: [id number] Hospital [id number]: 330 [id number] Repository [phone] () Date:[id number] [address] [place] [phone]: 06/07/2018 Secondary NOT GIVENUNK [place] Insurance:SELF PAY [facility] Number: Effective Repository Date:2018-06-07 06/04/2018 REBECCA Davis Primary REBECCA Ryan [address] Insurance[facility]: [place] icy Number: [id number] Hospital [id number]: 330 [id number] Repository [phone] () Date:[id number] [address] [place] [phone]: 06/04/2018 Secondary NOT GIVENUNK [place] Insurance:SELF PAY [facility] Number: Effective Repository Date:2018-06-04
== END ==
PROVIDERS: Referring Provider Family Medicine; Visit Provider Family Medicine
DX: M54.42 Lumbago with sciatica, left side (principal)
CPT/HCPCS: 72110

== ENCOUNTER → 2018-06-14 11:49 | Outpatient (CLI) | payer OTHER, SELFPAY ==
[2018-06-04 18:29] VITALS: BMI 31.1
--- NOTE | 2018-06-14 11:59 | RAD_ITS ---
STUDY: X-RAY - BILATERAL HIPS WITHOUT PELVIS REASON FOR EXAM: Female, 52 years old. Bilateral hip pain. Right hip pain is worse on the left. TECHNIQUE: 2 views of the right hip, and 2 views of the left hip were obtained. COMPARISON: Prior comparison studies are not available for review at this time. FINDINGS: Right Hip: Normal right femoral head, neck, intertrochanteric region and visualized proximal femur. Normal right acetabulum. Normal right hip joint. Left Hip: Normal left femoral head, neck, intertrochanteric region and visualized proximal femur. Normal left acetabulum. Normal left hip joint. Normal bilateral superior and inferior pubic rami , ischial tuberosities and pubic symphysis. RAD/Hips B/L min 2 views w/ Pelvis IMPRESSION: No radiographic evidence for acute fracture. Electronically Signed: Nellie Burns MD at 10:01 EST , Service support ,
[2018-06-14 14:19] LABS: Absolute Lymphocyte Count 3.04 X10^3/ul (0.83-4.51); Absolute Neutrophil Count 7.1 X10^3/uL (2.0-7.7); Basophil# 0.02 X10^3/uL; Basophil% 0.2 % (0-1); Eosinophil# 0.25 X10^3/uL; Eosinophils% 2.3 % (0-5); Hematocrit 48.6 % (37-47); Hemoglobin 16.2 g/dl (12.0-15.0); Lymphocyte # 3.04 X10^3/ul (4.0); Lymphocyte % 27.9 % (19-41); Mean Corp Hgb Conc 33.3 g/gl (32-36); Mean Corpuscular Hgb 30.9 pg (27.0-32.0); Mean Corpuscular Volume 92.7 fL (81-99); Mean Platelet Vol. 11.2 fl (6.2-12.0); Monocyte% 4.6 % (0-10); Neutrophil # 7.08 X10^3/uL (2.7-7.7); Neutrophil % 64.8 % (47-70); Platelet Count 218 K/mm3 (150-450); RBC Distribution Width CV 13.2 % (11.6-14.6); RBC Distribution Width SD 45.1 fl (35.1-43.9); Red Blood Count 5.24 M/mm3 (4.2-5.4); White Blood Count 10.9 K/mm3 (4.4-11.0)
[2018-06-14 14:20] LABS: POSITIVE COUNT NO; POSITIVE DIFFERENTIAL NO; POSITIVE MORPHOLOGY NO
[2018-06-14 14:48] LABS: ALB/GLOB Ratio 0.9 RATIO (0.9-2.4); AST(SGOT) 17 U/L (15-37); Alanine Aminotransfer ALT/SGPT 44 U/L (13-56); Albumin, Serum 3.8 g/dL (3.2-5.0); Alkaline Phosphatase 129 U/L (45-117); Anion Gap 7 (5-15); BUN 17 mg/dL (7-18); BUN/Creat Ratio 19.8 RATIO (10-20); Calcium,Total 9.2 mg/dL (8.5-10.1); Chloride 101 mmol/L (98-107); Cholesterol 245 mg/dL (200); Creatinine, Serum 0.86 mg/dL (0.55-1.02); EST Glomerular Filtration Rate 74 mL/min (>60); Est Glom Filt Rate - Afr Amer 90 mL/min (>60); Globulin 4.2 g/dL (2.2-4.2); Glucose 89 mg/dL (74-106); High Density Lipoprotein 43 mg/dL; Potassium 4.5 mmol/L (3.5-5.1); Sodium Level 138 mmol/L (136-145); Thyroid Stim Hormone (TSH) 1.15 uIU/mL (0.358-3.74); Triglycerides 214 mg/dL; Very Low Density Lipoprotein 43 mg/dL (5-40)
== END ==
LOC: MFPLAB 11:50 → MTRAD 11:50
PROVIDERS: Family Provider Family Medicine; PCP Family Medicine; Referring Provider Family Medicine; Visit Provider Family Medicine
DX: M25.551 Pain in right hip (principal); M25.552 Pain in left hip; E66.01 Morbid (severe) obesity due to excess calories; Z72.0 Tobacco use
CPT/HCPCS: 36415; 73521; 80053; 80061; 84443; 85025

== ENCOUNTER 2018-12-10 18:35 | Inpatient (IN) | payer OTHER, SELFPAY ==
[2018-12-10] VITALS (10 sets, daily range): BP systolic 118–156; BP diastolic 58–89; PULSE 84–118; RESP 16–26; TEMP 37.2–38.4; O2SAT 95–98; BMI 48.9; BMI 48.3; BMI 48.4
--- NOTE | 2018-12-10 18:51 | EKG12_ITS ---
Test Reason : Blood Pressure : / mmHG Vent. Rate : 104 BPM Atrial Rate : 104 BPM P-R Int : 156 ms QRS Dur : 116 ms QT Int : 350 ms P-R-T Axes : 053 068 017 degrees QTc Int : 460 ms Sinus tachycardia Otherwise normal ECG Confirmed by ANNE-MARIE BRINK ([id number]), newspaper copy editor AKUA STEPHENSON ([id number]) on 12/13/2018 6:11:52 AM Referred By: Luana Muhammad Confirmed By:ANNE-MARIE BRINK
--- NOTE | 2018-12-10 18:54 | ED.RN ---
NO OLD EKGS IN MUSE
--- NOTE | 2018-12-10 18:55 | ED.DCSUM_ITS ---
History of Present Illness Chief Complaint: Shortness of Breath Informant: Patient Onset: Weeks - 1 Narrative: 1 week if symptoms started with upper mid back pain and dyspnea. 3 days ago fever and mild productive cough, T-max 104 orally, 3 days ago. Using Advil, last dose yesterday evening. Planes of headache, no recent travel. No sick contacts. No neck pain. No nausea or vomiting. Diarrhea yesterday, however today forming stools. No recent antibiotics. Urine frequency did increase fluid intake. Past history of piriformis syndrome, tobacco history. History of C-sections in the past. No recent travel, surgeries, or immobilizations. No history of PE or DVT. No chest pains. Prior similar symptoms: No Past Medical History - Allergies and Home Meds Allergies/Adverse Reactions: Allergies Penicillins Allergy (Verified 06/04/18 18:32) Swelling Primary Care Physician: Leonard Franks MD [Primary Care Provider] - Smoking Status: Current every day smoker Review of Systems General: Reports: Fever, Sweats. Denies: Chills Eyes: Denies: Visual changes - bilaterally, Diplopia ENT: Denies: Rhinorrhea, Sore throat Cardiovascular: Denies: Chest pain, Palpitations Respiratory: Reports: Dyspnea, Cough, Sputum. Denies: Dyspnea on exertion Gastrointestinal: Reports: Diarrhea. Denies: Abdominal pain, Nausea, Vomiting, Melena, Hematochezia Genitourinary: Reports: Frequency. Denies: Dysuria, Hematuria Musculoskeletal: Denies: Back pain, Extremity Pain Skin: Denies: Rash, Wounds Neurological: Reports: Headache - Is. Denies: Weakness, Numbness Physical Exam Vital Signs/Narrative: Vital Signs Temp Pulse Resp BP Pulse Ox 12/10/18 18:36 101.1 F H 118 H 16 156/72 H 98 Inital Vital Signs reviewed: Yes General: Well nourished, Well developed, Obese, - - Warm with slight sweats Head: Normocephalic, Atraumatic Eyes: Perrl, EOMI ENT: No rhinorrhea, Dry mucous membranes Neck: Supple, Nontender, - - No meningismus Cardiovascular: Regular rate, Regular rhythm, No murmurs, Tachycardia Respiratory: No distress, CTA bilaterally, Chest nontender Abdomen: Soft, Nontender, Nondistended, Normal bowel sounds Back: Nontender, Normal Inspection Extremities: Nontender, No edema Skin: Normal color, No rash Neurological: Alert, Oriented x3, Cranial nerves II-XII grossly intact, Normal Strength, Normal Sensation Psychological: Normal affect, Normal Mood Diagnostic/Tx/Re-eval Chest X-Ray - ED: 2 View, Read by Radiologist, No Acute Disease Abnormal Lab Results 12/10/18 12/10/18 12/10/18 18:57 18:57 18:57 WBC 16.3 H RBC 4.40 Hgb 13.4 Hct 38.6 MCV 87.7 MCH 30.5 MCHC 34.7 RDW 13.3 RDW Differential 43.0 Plt Count 166 MPV 11.2 Immature Gran % (Auto) 0.600 Neut % (Auto) 78.3 H Lymph % (Auto) 8.0 L [place] % (Auto) 12.1 H Eos % (Auto) 0.8 Baso % (Auto) 0.2 Absolute Neuts (auto) 12.8 H Absolute Lymphs (auto) 1.30 Total Counted Not Reportable Differential Comment Diff Path Review May foll RBC Morphology NORM C+C PT 13.6 INR 1.1 APTT 31.2 Sodium 132 L Potassium 2.9 L Chloride 97 L Carbon Dioxide 25.0 Anion Gap 10 BUN 9 Creatinine 1.13 H Estim Creat Clear Calc 48.72 Est GFR (MDRD) Af Amer 65 Est GFR (MDRD) Non-Af 54 L BUN/Creatinine Ratio 8.0 L Glucose 108 H Lactic Acid Calcium 8.6 Total Bilirubin 0.70 AST 56 H ALT 109 H Alkaline Phosphatase 166 H Total Protein 7.7 Albumin 2.4 L Globulin 5.3 H Albumin/Globulin Ratio 0.5 L Urine Color Urine Clarity Urine pH Ur Specific [place] Urine Protein Urine Glucose (UA) Urine Ketones Urine Occult Blood Urine Nitrite Urine Bilirubin Urine Urobilinogen Ur Leukocyte Esterase Urine RBC Urine WBC Ur Squamous Epith Cells Urine Bacteria Urine Mucus 12/10/18 12/10/18 12/10/18 18:57 19:46 19:48 WBC RBC Hgb Hct MCV MCH MCHC RDW RDW Differential Plt Count MPV Immature Gran % (Auto) Neut % (Auto) Lymph % (Auto) [place] % (Auto) Eos % (Auto) Baso % (Auto) Absolute Neuts (auto) Absolute Lymphs (auto) Total Counted Differential Comment Diff Path Review RBC Morphology PT INR APTT Sodium Potassium Chloride Carbon Dioxide Anion Gap BUN Creatinine Estim Creat Clear Calc Est GFR (MDRD) Af Amer Est GFR (MDRD) Non-Af BUN/Creatinine Ratio Glucose Lactic Acid Cancelled 0.6 Calcium Total Bilirubin AST ALT Alkaline Phosphatase Total Protein Albumin Globulin Albumin/Globulin Ratio Urine Color Yellow Urine Clarity Sl. Cloudy Urine pH 6.5 Ur Specific [place] 1.005 Urine Protein 30 H Urine Glucose (UA) Normal Urine Ketones Negative Urine Occult Blood 150 H Urine Nitrite Negative Urine Bilirubin Negative Urine Urobilinogen Normal Ur Leukocyte Esterase 500 H Urine RBC 0 SEEN Urine WBC 10-25 SEEN Ur Squamous Epith Cells 0 SEEN Urine Bacteria 1+ Urine Mucus 0 SEEN CTA chest: No acute process, poor timing, unable to evaluate distal vessels. - EKG Initial EKG Interpretation: Sinus Rhythm - Sinus 104. No acute changes. - Medical Decision Making Patient febrile, tachycardic, sepsis work-up initiated. White count 16. Chest x-ray negative. Creatinine normal. Lactic acid normal. UA did note signs of infection, she has urine frequency. Was given Tylenol, started on Rocephin. IV fluids were given heart rate was improving. With her reported upper back pain, tachycardia slight tachypnea, CTA of chest was obtained. Shows no acute process. Currently bronchitis symptoms at this time. She does smoke, denies diagnosed COPD history. Patient's fever, leukocytosis UTI findings, will discuss with hospitalist for admission. ED Disposition - Plan for ED Patient: Disposition: [facility] Diagnosis: UTI (urinary tract infection), Fever, Leukocytosis, Bronchitis Referrals: Leonard Franks MD [Primary Care Provider] -
[2018-12-10] MEDS: 0.9% Normal Saline 1,000 ML 999 ML IV (19:02)
[2018-12-10] MEDS: Acetaminophen 500 MG Tablet 1000 MG PO (19:06)
[2018-12-10] MEDS: oxyCODONE 5 MG Tablet PO (19:06)
[2018-12-10] MEDS: Ondansetron 4 MG/2 ML Vial IV (19:12)
[2018-12-10 19:19] LABS: International Normalized Ratio 1.1; Prothrombin Time (Protime)PT. 13.6 SECONDS (11.7-14.9)
[2018-12-10 19:20] LABS: Partial Thromboplast Time 31.2 Seconds (24.1-36.2)
[2018-12-10 19:25] LABS: Absolute Neutrophil Count 12.8 X10^3/uL (2.0-7.7); Basophil# 0.03 X10^3/uL; Basophil% 0.2 % (0-1); Eosinophil# 0.13 X10^3/uL; Eosinophils% 0.8 % (0-5); Hematocrit 38.6 % (37-47); Hemoglobin 13.4 g/dl (12.0-15.0); Mean Corp Hgb Conc 34.7 g/gl (32-36); Mean Corpuscular Hgb 30.5 pg (27.0-32.0); Mean Corpuscular Volume 87.7 fL (81-99); Mean Platelet Vol. 11.2 fl (6.2-12.0); Monocyte# 1.97 X10^3/uL; Monocyte% 12.1 % (0-10); Neutrophil # 12.78 X10^3/uL (2.7-7.7); Neutrophil % 78.3 % (47-70); Platelet Count 166 K/mm3 (150-450); RBC Distribution Width CV 13.3 % (11.6-14.6); White Blood Count 16.3 K/mm3 (4.4-11.0)
--- NOTE | 2018-12-10 19:25 | RAD_ITS ---
STUDY: X-RAY CHEST REASON FOR EXAM: Female, 53 years old. Shortness of breath. TECHNIQUE: PA and lateral views of the chest. COMPARISON: None. FINDINGS: The lungs are clear, but under expanded with crowding. There is no demonstrated pleural abnormality. Normal size heart. Normal mediastinum and stephen. Normal visualized pulmonary arteries. Normal visualized aortic arch and descending thoracic aorta. There are minor multilevel degenerative changes of the visualized thoracic spine. Normal visualized ribs, clavicles, and shoulders. There is no demonstrated abnormality of the visualized soft tissue structures of the upper abdomen. RAD/Chest PA and Lateral IMPRESSION: Suboptimal inspiratory effort. No acute cardiopulmonary disease. Electronically Signed: Mitch Tim MD at 20:00 EDT , Service support ,
[2018-12-10 19:27] LABS: ALB/GLOB Ratio 0.5 RATIO (0.9-2.4); AST(SGOT) 56 U/L (15-37); Alanine Aminotransfer ALT/SGPT 109 U/L (13-56); Albumin, Serum 2.4 g/dL (3.2-5.0); Alkaline Phosphatase 166 U/L (45-117); Anion Gap 10 (5-15); BUN 9 mg/dL (7-18); Calcium,Total 8.6 mg/dL (8.5-10.1); Chloride 97 mmol/L (98-107); Creatinine, Serum 1.13 mg/dL (0.55-1.02); EST Glomerular Filtration Rate 54 mL/min (>60); Est Glom Filt Rate - Afr Amer 65 mL/min (>60); Estimated Creatinine Clearance 48.72 ml/min; Globulin 5.3 g/dL (2.2-4.2); Glucose 108 mg/dL (74-106); Potassium 2.9 mmol/L (3.5-5.1); Protein, Total 7.7 g/dL (6.4-8.2); Sodium Level 132 mmol/L (136-145)
[2018-12-10 19:28] LABS: Differential Indicated SCAN CRITERIA MET; POSITIVE COUNT NO; POSITIVE DIFFERENTIAL YES; POSITIVE MORPHOLOGY NO
[2018-12-10 19:44] LABS: Red Cell Morphology NORM C+C NORMAL (NORM C&C)
--- NOTE | 2018-12-10 20:02 | CT_ITS ---
STUDY: CTA CHEST REASON FOR EXAM: Female, 53 years old. Not feeling well RADIATION DOSAGE (If Supplied By Facility): CTDIvol = ( 15.63 ) mGy, DLP = ( 1183.79 ) mGycm TECHNIQUE: The examination was performed with the intravenous administration of 100 IV Isovue 370. Post-processing of the angiographic images was performed, with multiplanar reformation and 3D reconstruction. The study is limited by body habitus. Individualized dose optimization techniques were used for this CT. COMPARISON: December 10, 2018 chest x-ray FINDINGS: Normal enhancement of the main pulmonary artery and right and left pulmonary arteries. There is limited enhancement of the bilateral peripheral pulmonary arteries. There is no demonstrated pulmonary embolism. Normal thoracic aorta and visualized great vessels. There is no demonstrated aortic dissection. Allowing for the presence of contrast and may be trace calcification in the left anterior descending coronary artery. There are a few nonspecific subcentimeter prevascular lymph nodes. Pretracheal lymph node measuring 1.4 x 0.9 cm. Normal hilar regions. Normal visualized trachea and bronchi. There are a few emphysematous blebs within the lung apices in the periphery. There are a few scattered areas of groundglass opacity suggesting probable air trapping. Normal pleura. Normal chest wall structures. There are degenerative changes of thoracic spine. There is an enlarged fatty infiltrated liver. The spleen is enlarged measuring 15.2 x 12.6 cm. There is a thickened appearance of the left adrenal gland. There is a vague demonstration of a possible nodule within the right adrenal gland measuring 1.5 x 1.4 cm. The study is limited for evaluation of soft tissue. There are small respiratory no lymph nodes. There are eloy hepatis lymph nodes measuring up to 1.[address]/CTA Chest W/WO Contrast IMPRESSION: Limited contrast bolus for subsegmental distal branch PE. Otherwise No gross evidence of pulmonary embolism. Areas of emphysematous change minimal air trapping suggesting probable underlying chronic obstructive pulmonary disease. Findings suggest possible trace calcification of the distal left anterior descending coronary artery Hepatomegaly with hepatic enlargement. Enlarged left greater than right adrenal glands. A simple small right adrenal mass. This is a limited study to evaluate the adrenal glands given the limited technique. The study is nearly a noncontrast study in the upper abdomen at the time of this contrast bolus. Consider follow-up MRI of the adrenal glands appropriate. Borderline enlarged pretracheal lymph node and borderline enlarged upper abdominal lymph nodes. In combination with moderate splenomegaly recommend correlation with clinical history for any lymphoproliferative disease. Electronically Signed: Sujey Nielson MD at 21:19 EDT Tel , Service support ,
[2018-12-10 20:04] LABS: Mucous, Urine 0 SEEN /hpf (<or=2+); Red Blood Cells-Urine 0 SEEN /hpf (0-5); Squamous Epithelial Cells - UA 0 SEEN /hpf (5-10)
[2018-12-10 20:09] LABS: Color, Urine Yellow (Yellow); Glucose, Dipstick Normal (Normal); Ketone-Dipstick Negative (Negative); Leukocyte Esterase-Dipstick 500 /ul (Negative); Nitrite-Dipstick Negative (Negative); Occult Blood-Urine 150 /ul (Negative); Protein-Dipstick 30 mg/dl (Negative); Specific Gravity, Urine 1.005 (1.002-1.030); Urine Bilirubin Dipstick Negative (Negative); Urine Clarity Sl. Cloudy (Clear); Urine Urobilinogen Normal (Normal); Urine pH 6.5 (5.0 - 8.0)
[2018-12-10 20:15] LABS: White Blood Cells 10-25 SEEN /hpf (0-5)
[2018-12-10 20:16] LABS: Bacteria 1+ /hpf (None Seen)
[2018-12-10 20:37] LABS: Lactic Acid 0.6 mmol/L (0.4-2.0)
[2018-12-10] MEDS: Ceftriaxone 1 GM/50 ML BAG IV (21:44)
--- NOTE | 2018-12-10 22:35 | PCM.HP.STD ---
Problem List (1) UTI (urinary tract infection) Status: Acute Qualifiers: Urinary tract infection type: site unspecified Hematuria presence: without hematuria Qualified Code(s): N39.0 - Urinary tract infection, site not specified (2) Bronchitis Status: Acute (3) Sepsis Status: Acute Qualifiers: Sepsis type: sepsis due to unspecified organism Qualified Code(s): A41.9 - Sepsis, unspecified organism (4) COPD (chronic obstructive pulmonary disease) Status: Suspected Qualifiers: COPD type: unspecified COPD Qualified Code(s): J44.9 - Chronic obstructive pulmonary disease, unspecified (5) Morbid obesity Status: Chronic History of Present Illness Date of Admission: 12/10/18 Chief Complaint: Fever, dysuria, back pain The patient is a 53 y/o F w/ PMHx: Morbid Obesity, Tobacco use who presents to the [facility] ED on 12/10/18 with history of history of onset fever x3 days, initially T-max of 104 with since then frequent dosage of antipyretics with concurrent ongoing dysuria and increased frequency with also complaints of musculoskeletal paraspinous lumbar discomfort with mildly productive cough similar to her chronic with mildly increased dyspnea with one episode of diarrhea the day prior to current presentation. Work-up in the ED included T101.1, heart rate 118, BP initially 156/72 with improvement to 134/58, respiratory rate 16, 98% on room air, CBC with WBC 16.3, heme globin 13.4, platelet 166 with left shift, unremarkable coags, CMP with sodium 132, potassium 2.9, chloride 97, BUN/Cr 9/1.13, glucose 108, LA 0.6, AST/ALT 56/109, Alk phos 166, UA w/ SG 1.005, blood 150, protain 30, WBC 10-25, 1+ bacteria, UCx pending, Bld Cx x 2 pending, CXR without acute findings, CTPA w/ no gross evidence of acute pulmonary emboli, areas of emphysematous change with minimal air trapping suggestive of likely underlying COPD, hepatomegaly with hepatic enlargement, enlarged left greater than right adrenal gland, simple small right adrenal mass, borderline enlarged pretracheal lymph nodes and borderline enlarged upper abdominal lymph nodes as well as evidence of moderate splenomegaly. In the ED patient ministered normal saline, potassium supplementation, oral oxycodone, Rocephin, Zofran, Tylenol. Past Medical History Past Medical History (Chronic Problems): Chronic Problems Morbid obesity (Chronic) Allergies Penicillins Allergy (Verified 06/04/18 18:32) Swelling Home Medications: Ambulatory Orders Medication Instructions Recorded Ibuprofen [Advil] 800 mg PO Q4H PRN PRN 12/10/18 Surgical History: - - x3, bilateral carpal tunnel surgery. 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 Tobacco Use: Cigarettes Alcohol: Occasional Drugs: None - *Family History Maternal History Items: Heart Disease Paternal History Items: Heart Disease Review of Systems Constitutional: Reports: Anorexia, Fever, Malaise, Weakness, Fatigue. Denies: Chills, Weight Change HEENT: Denies: Head Aches, Sinus Congestion, Sinus Drainage Cardiovascular: Denies: Chest Pain, Palpitations Respiratory: Reports: Cough, Pleuritic Pain, Shortness of breath upon exertion, Sputum production. Denies: Shortness of breath at rest Gastrointestinal: Reports: Diarrhea. Denies: Abdominal Pain, Nausea, Vomiting Genitourinary: Reports: Dysuria, Frequency Musculoskeletal: Reports: Back Pain. Denies: Joint Pain, Joint Tenderness Skin: Denies: Rash, Wounds Neurological: Denies: Numbness, Tingling, Focal weakness Psychiatric: Denies: Anxiety, Depression, Homicidal Ideations, Suicidal Ideations Hematologic/ Lymphatic: Denies: Easy Bruising, Easy Bleeding VTE Information - Inpt Only VTE Present on Admission: No VTE Mechan Device Prophylaxis: SCD's VTE Pharm Prophylaxis ordered?: Yes Patient Problems: Active and Suspected Problems UTI (urinary tract infection) (Acute) Fever (Acute) Leukocytosis (Acute) Bronchitis (Acute) Sepsis (Acute) COPD (chronic obstructive pulmonary disease) (Suspected) Subjective: Seated upright in the ED bed, fatigued appearance. Objective: Physical Examination: General: awake, alert, oriented x 3 and cooperative, seated upright in the ED bed in no apparent distress, fatigued and ill-appearing. Skin: normal color, turgor, no icterus, cyanosis. HEENT: AT/NC, EOMI, PERRLA, dry MM, no carotid bruits or JVD noted. Lungs: Decreased breath sounds, greater bases, mildly rhonchorous breath sounds although poor inspiratory effort, no rales or wheezing noted. Heart: Improved, regular rate and rhythm; no gallop, rub audible. Abdomen: soft, morbidly obese, mild suprapubic discomfort although amenable, positive CVA tenderness to palpation, ND, normal BS, unable to discern HSM on physical examination secondary to morbidly obese habitus although noted on imaging. Extremities: no cyanosis, clubbing, or edema, + bilateral CVA and paraspinous tenderness to palpation. Neurological: patient awake, alert, oriented x 3; cognitive function intact; pupils equally reactive to light and accomodation; cranial nerves II-XII grossly normal, moving all 4 extremities although limited secondary to acute presentation, no focal deficits, strength severely global decrease secondary to acute presentation. Psychiatric: affect appears fatigued, no acute evidence of depressive or anxiety feelings. - Physical Exam Vital Signs Temp Pulse Resp BP Pulse Ox 98.9 F 89 23 H 118/73 98 12/10/18 22:03 12/10/18 22:03 12/10/18 22:03 12/10/18 22:03 12/10/18 22:03 Oxygen Flow Rate (L/min) 2 Oxygen Delivery Method Room Air Weight: 276 lb Body Mass Index (BMI) 48.9 Laboratory Tests Past 24 Hrs 12/10/18 12/10/18 12/10/18 18:57 18:57 18:57 WBC 16.3 H RBC 4.40 Hgb 13.4 Hct 38.6 MCV 87.7 MCH 30.5 MCHC 34.7 RDW 13.3 RDW Differential 43.0 Plt Count 166 MPV 11.2 Immature Gran % (Auto) 0.600 Neut % (Auto) 78.3 H Lymph % (Auto) 8.0 L Sunflower % (Auto) 12.1 H Eos % (Auto) 0.8 Baso % (Auto) 0.2 Absolute Neuts (auto) 12.8 H Absolute Lymphs (auto) 1.30 Total Counted Not Reportable Differential Comment Diff Path Review May foll RBC Morphology NORM C+C PT 13.6 INR 1.1 APTT 31.2 Sodium 132 L Potassium 2.9 L Chloride 97 L Carbon Dioxide 25.0 Anion Gap 10 BUN 9 Creatinine 1.13 H Estim Creat Clear Calc 48.72 Est GFR (MDRD) Af Amer 65 Est GFR (MDRD) Non-Af 54 L BUN/Creatinine Ratio 8.0 L Glucose 108 H Lactic Acid Calcium 8.6 Total Bilirubin 0.70 AST 56 H ALT 109 H Alkaline Phosphatase 166 H Total Protein 7.7 Albumin 2.4 L Globulin 5.3 H Albumin/Globulin Ratio 0.5 L Urine Color Urine Clarity Urine pH Ur Specific Derwood Urine Protein Urine Glucose (UA) Urine Ketones Urine Occult Blood Urine Nitrite Urine Bilirubin Urine Urobilinogen Ur Leukocyte Esterase Urine RBC Urine WBC Ur Squamous Epith Cells Urine Bacteria Urine Mucus 12/10/18 12/10/18 12/10/18 18:57 19:46 19:48 WBC RBC Hgb Hct MCV MCH MCHC RDW RDW Differential Plt Count MPV Immature Gran % (Auto) Neut % (Auto) Lymph % (Auto) Sunflower % (Auto) Eos % (Auto) Baso % (Auto) Absolute Neuts (auto) Absolute Lymphs (auto) Total Counted Differential Comment Diff Path Review RBC Morphology PT INR APTT Sodium Potassium Chloride Carbon Dioxide Anion Gap BUN Creatinine Estim Creat Clear Calc Est GFR (MDRD) Af Amer Est GFR (MDRD) Non-Af BUN/Creatinine Ratio Glucose Lactic Acid Cancelled 0.6 Calcium Total Bilirubin AST ALT Alkaline Phosphatase Total Protein Albumin Globulin Albumin/Globulin Ratio Urine Color Yellow Urine Clarity Sl. Cloudy Urine pH 6.5 Ur Specific Derwood 1.005 Urine Protein 30 H Urine Glucose (UA) Normal Urine Ketones Negative Urine Occult Blood 150 H Urine Nitrite Negative Urine Bilirubin Negative Urine Urobilinogen Normal Ur Leukocyte Esterase 500 H Urine RBC 0 SEEN Urine WBC 10-25 SEEN Ur Squamous Epith Cells 0 SEEN Urine Bacteria 1+ Urine Mucus 0 SEEN Assessment/Plan All Active Problems UTI (urinary tract infection) (Acute) Fever (Acute) Leukocytosis (Acute) Bronchitis (Acute) Sepsis (Acute) The patient is a 53 y/o F w/ PMHx: Morbid Obesity, Tobacco use who presents to the [facility] ED on 12/10/18 with history of history of onset fever x3 days, initially T-max of 104 with since then frequent dosage of antipyretics with concurrent ongoing dysuria and increased frequency with also complaints of musculoskeletal paraspinous lumbar discomfort with mildly productive cough similar to her chronic with mildly increased dyspnea with one episode of diarrhea the day prior to current presentation. (1) Acute sepsis secondary to Acute Urinary Tract Infection: UA upon ED evaluation mildly remarkable, pending UCx, continue IVFs, monitor I/Os, continue IV Rocephin w/ transition as able pending sensitivities and speciation. Bld cx x 2 obtained in the ED. (2) Suspected Chronic COPD w/ possible Acute Bronchitis, Likely Viral: Will maintain on oxygen with wean as tolerated to room air, continue ATC duonebs, PRN albuterol, HOB, IS parameters. No wheezing, defer steroids, as noted maintained per #1 on rocephin, pending respiratory viral panel, repeat CXR in AM following overnight hydration to assure no marked change on CXR, rhonchorous on examination but notes difficulty coughing secondary to back discomfort. Will need outpatient PFTs, follow-up with pulmonary consideration. (3) Elevated liver enzymes with hepatomegaly: Admission CMP AST/ALT 56/109, Alk phos 166, CTPA w/ hepatomegaly with hepatic enlargement. Will hydrate, repeat CMP in AM, obtain hepatitis profile. (4) Splenomegaly: Given presentation and history with notably elevated fevers, monospot requested, from noted imaging may need to consider further evaluation for lymphoproliferative disease pending noted current plan evaluations. (5) Hyponatremia, questionable hypovolemia: Notes decreased recent oral intake although specific gravity is not elevated, will continue to hydrate, repeat BMP in AM. (6) Hypokalemia: Admission K+ 2.9, supplementation given, repeat level in AM. (7) Enlarged adrenal gland, right adrenal mass: CTPA w/ enlarged left greater than right adrenal gland, simple small right adrenal mass, will need to consider follow-up outpatient further imaging. (8) Morbid Obesity: Weight loss and lifestyle changes encouraged, nutrition consulted. (9) Tobacco Abuse: Encouraged cessation, inpatient consultation per RT, NR if desired. (10) DVT Prophylaxis: SCDs, lovenox. Code Visit Inpatient E&M: 77058 Init Hosp L3
[2018-12-10 23:09] LABS: Internal QC Validated? YES +Cl - CLEAR BKGD; Monotest Negative (Negative)
[2018-12-10] MEDS: 0.9% Normal Saline 1,000 ML 125 ML IV (23:21)
--- NOTE | 2018-12-10 23:32 | NURSING ---
[facility] NOTIFIED OF RESP PANEL ORDER
[2018-12-11] VITALS (7 sets, daily range): BP systolic 118–139; BP diastolic 63–77; PULSE 73–90; RESP 18–20; TEMP 36.4–37.1; O2SAT 93–98
[2018-12-11] MEDS: Ketorolac 15 MG/ML Vial IV ×3 (00:20→15:03)
[2018-12-11] MEDS: 0.9% Normal Saline 1,000 ML 125 ML IV (05:41)
[2018-12-11] MEDS: 0.9% NaCl Peripheral Flush Adult/Peds IV ×2 (05:41→15:03)
--- NOTE | 2018-12-11 05:55 | RAD_ITS ---
STUDY: X-RAY CHEST REASON FOR EXAM: Female, 53 years old. Cough. TECHNIQUE: PA and lateral views of the chest. COMPARISON: Comparison is made with prior study dated December 10, 2018. FINDINGS: There is evidence of increased interstitial markings at both lung bases with evidence of vascular congestion. Findings are suggestive of CHF. There is no demonstrated pleural abnormality. Normal size heart. Normal mediastinum and stephen. Normal visualized pulmonary arteries. Normal visualized aortic arch and descending thoracic aorta. Normal visualized thoracic spine. Normal visualized ribs, clavicles, and shoulders. There is no demonstrated abnormality of the visualized soft tissue structures of the upper abdomen. RAD/Chest PA and Lateral IMPRESSION: Findings in keeping with a mild degree of CHF. Electronically Signed: Jason Dunn, at 12:33 EDT , Service support ,
[2018-12-11 06:12] LABS: Absolute Lymphocyte Count 0.93 X10^3/ul (0.83-4.51); Absolute Neutrophil Count 9.1 X10^3/uL (2.0-7.7); Basophil# 0.02 X10^3/uL; Basophil% 0.2 % (0-1); Eosinophil# 0.23 X10^3/uL; Hematocrit 38.9 % (37-47); Hemoglobin 12.5 g/dl (12.0-15.0); Lymphocyte # 0.93 X10^3/ul (4.0); Mean Corp Hgb Conc 32.1 g/gl (32-36); Mean Corpuscular Hgb 28.7 pg (27.0-32.0); Mean Corpuscular Volume 89.2 fL (81-99); Mean Platelet Vol. 11.7 fl (6.2-12.0); Monocyte% 11.2 % (0-10); Neutrophil # 9.05 X10^3/uL (2.7-7.7); Neutrophil % 77.9 % (47-70); Platelet Count 169 K/mm3 (150-450); RBC Distribution Width CV 13.3 % (11.6-14.6); Red Blood Count 4.36 M/mm3 (4.2-5.4); White Blood Count 11.6 K/mm3 (4.4-11.0)
[2018-12-11 06:14] LABS: AST(SGOT) 41 U/L (15-37); Alanine Aminotransfer ALT/SGPT 95 U/L (13-56); Albumin, Serum 2.1 g/dL (3.2-5.0); Alkaline Phosphatase 142 U/L (45-117); Anion Gap 8 (5-15); BUN 11 mg/dL (7-18); BUN/Creat Ratio 9.7 RATIO (10-20); Bilirubin, Direct 0.31 mg/dL (0.00-0.30); Calcium,Total 8.4 mg/dL (8.5-10.1); Chloride 103 mmol/L (98-107); Creatinine, Serum 1.13 mg/dL (0.55-1.02); EST Glomerular Filtration Rate 54 mL/min (>60); Est Glom Filt Rate - Afr Amer 65 mL/min (>60); Estimated Creatinine Clearance 48.72 ml/min; Globulin 4.9 g/dL (2.2-4.2); Glucose 114 mg/dL (74-106); Potassium 3.2 mmol/L (3.5-5.1); Sodium Level 140 mmol/L (136-145)
[2018-12-11 06:16] LABS: POSITIVE COUNT NO; POSITIVE DIFFERENTIAL NO; POSITIVE MORPHOLOGY NO
[2018-12-11] MEDS: oxyCODONE 5 MG Tablet PO ×3 (08:01→23:30)
[2018-12-11] MEDS: Acetaminophen 325 MG Tablet 650 MG PO ×2 (08:02→14:13)
[2018-12-11] MEDS: Enoxaparin 40 MG/0.4 ML Syringe SC (08:03)
[2018-12-11 08:04] LABS: Magnesium 2.2 mg/dL (1.6-2.6); Phosphorus 4.3 mg/dL (2.5-4.9)
[2018-12-11] MEDS: Ciprofloxacin 400 MG/200 ML BAG 200 MG IV ×2 (09:09→22:24)
--- NOTE | 2018-12-11 10:15 | CASEMGMT ---
RN CM PROMOTIONS MANAGER CM to room to meet with patient for initial transition planning/care coordination assessment. RN KALIA introduced self and role at [facility]. Pt voices understanding and consents to assessment at this time. Pt sitting up in bed in no distress at this time. Pt is A/O at this time and answers all questions appropriately. Care providers, pharmacy, and demographics verified/updated at this time. PCP: Dr Leonard Franks. Specialists: None Preferred Pharmacy: [facility] Insurance: MMO Prescription Benefit: Yes Living Will/HPOA: Pt does not currently have LW/HCPOA and declines info at this time. Pt made aware that he can contact SW as an out-pt and make appt in the future if he decides he would like to talk with someone about this or would like to utilize [facility] social work for advanced directive completion. Given Senior Accounting Specialist Rac card with information and contact number. Pt expresses understanding. LNOK: 5 living children. in 2012 and had 2 other children that in 2010. States her family is supportive. Living Arrangements: Lives in a one-story home w/a basement. Boyfriend and youngest son lives with pt. Pt states she is independent. She works full-time. Transportation: Pt states drives self and states no transportation concerns at this time. Her boyfriend, Sunny, or her daughter, Mima, can drive her home at discharge. DME: Denies using any DME and denies needs. States no preference of DME company if she would need anything @ discharge. HHC/SNF: No history of either, denies needs, and no needs identified. Pt wishes to return home and states has no concerns with going home at time of discharge. CM to follow for any discharge planning/needs. Pt voices no further concerns/needs at this time. Advised pt to ask for CM if any further questions/concerns/needs arise. Voices understanding. PLAN: Home with support of boyfriend and family. Sebastian QUEEN RN, CM
[2018-12-11] MEDS: HYDROcodone Bitartrate/Apap 5/325 Tablet PO ×2 (11:35→19:17)
--- NOTE | 2018-12-11 11:38 | CT_ITS ---
STUDY: CT ABDOMEN AND PELVIS WITH CONTRAST REASON FOR EXAM: Female, 53 years old. Abnormal LFTs, sepsis, pyelonephritis. RADIATION DOSAGE (If Supplied By Facility): CTDIvol = ( 12.49 ) mGy, DLP = ( 1308.41 ) mGycm TECHNIQUE: Transaxial images were obtained from the dome of the diaphragm to the symphysis pubis with oral contrast. 100ML IV/Oral Isovue 300 was administered. Sagittal and coronal images were reconstructed. Individualized dose optimization techniques were used for this CT. COMPARISON: None. FINDINGS: The visualized lung bases are unremarkable. The visualized portions of the heart are within normal limits. There is hepatomegaly, the right lobe measuring 23.5 cm in height. Liver density is difficult to accurately assess after IV contrast, but no focal lesion is defined. The patent portal vein diameter is 14.8 mm there Normal gallbladder and extrahepatic biliary system. There is mild splenomegaly, measuring 13 x 5.1 x 15.5 cm. Normal pancreas. There is a moderately defined, partially enhancing 1.95 x 1.25 x 2.05 cm right adrenal mass, consistent with an adrenal adenoma. Normal left adrenal gland. Normal right kidney. Normal left kidney. Small hyperdensities in the nondistended renal calyces as the appearance of very early contrast excretion, but nonobstructing stone(s) are difficult to exclude. No hydronephrosis. Normal visualized stomach. Normal small intestine. Normal colon. The appendix is visualized on series 2 images 84-89 and appears normal. There is moderately diffuse atherosclerotic calcification of the abdominal aorta and proximal iliac arteries, without a demonstrated aneurysm. Normal inferior vena cava. Normal retroperitoneum. Nearly empty urinary bladder. Normal size anteverted, mildly retroflexed uterus. There is a well-defined 5.4 x 4.1 x 4.7 cm left adnexal cyst resting on the left dome of the bladder. The right ovary is grossly unremarkable. There is a very small umbilical hernia containing fat. Fat fills the left inguinal ligament with only borderline herniation below the inferior inguinal ring. There are multilevel mild degenerative changes of the visualized thoracic spine. Normal lumbar spine. CT/Abdomen/Pelvis WITH Contrast IMPRESSION: 1. 5.4 cm left ovarian cyst. The uterus and right adnexa are unremarkable. 2. No hydronephrosis. 3. Hepatosplenomegaly. 4. 2 cm right adrenal mass suggesting an adenoma. 5. Moderately diffuse aortoiliac atherosclerotic calcific plaquing. No demonstrated aneurysm. 6. The bowel is unremarkable without signs of obstruction. The appendix is normal. Electronically Signed: Mitch Tim MD at 15:06 EDT , Service support ,
[2018-12-11] MEDS: Ipratropium/Albuterol Sulfate 3 ML AMPUL.NEB INHALATION ×2 (13:59→18:45)
[2018-12-11 14:48] LABS: Pathologist Review Reviewed
--- NOTE | 2018-12-11 15:24 | PCM.PROGNOTE ---
Patient Problems: Active and Suspected Problems UTI (urinary tract infection) (Acute) Fever (Acute) Leukocytosis (Acute) Bronchitis (Acute) Sepsis (Acute) COPD (chronic obstructive pulmonary disease) (Suspected) Subjective: The patient is a 53-year-old female with a past medical history of morbid obesity and tobacco dependence who presented to the emergency department at [facility] on 12/10/2018 complaining of fever associated with urinary urgency and frequency. She additionally complained of headache, myalgias and arthralgias. She denied nausea or vomiting. Temp in the ER was 101.1. Heart rate was 118 and the blood pressure was 156/72. Pulse ox was 96 to 98% on room air. White blood cell count was 16.3 with a left shift. Hemoglobin and platelets were within normal limits. Sodium was low at 132 and the potassium was low at 2.9. The BUN was 9 with a creatinine of 1.13. AST was 56 with an ALT of 109 and an alkaline phosphatase of 166. Total bilirubin was within normal limits. Lactic acid was normal at 0.6. A UA showed 0 squamous epithelial cells, 10-25 white blood cells and 1+ bacteria. Chest x-ray showed a poor inspiratory effort but no infiltrates, pleural effusions or pulmonary vascular congestion. CTA of the chest was done which was suboptimal but showed no gross evidence of pulmonary embolism. There were areas of emphysematous change suggestive of possible COPD. The adrenal glands were enlarged, left greater than right and there was a small right adrenal mass. She was admitted to the hospital with a diagnosis of sepsis secondary to urinary tract infection and was started on Rocephin in the emergency department and this was continued. CXR was PA and lateral and per my review the heart appears to be enlarged. there are increased interstitial markings at the bases. No effusions. Respiratory panel is negative Preliminary blood culture is positive for gram-negative cliff less than 24 hours after admission. Preliminary results on the urine culture is suspected E. coli she snores and is still tired when awakening in the AM and she has restless leg at night. Has never been tested for sleep apnea. She is a smoker. Currently smoking 1-1/2 packs of cigarettes per day and has not tried to stop because she likes it. Occasional alcohol. - Physical Exam General: Alert, Oriented x3, Cooperative, Well developed, Well nourished HEENT: Atraumatic, PERRLA, EOMI, Normocephalic Oral: Moist Mucosa Neck: Supple, Negative Carotid Bruits Lungs: Clear to auscultation, No rhonchi, No wheeze, No rales, Diminished Cardiovascular: Regular rate, Regular Rhythm, Normal S1, Normal S2, No murmurs, No rub noted, No Gallop, - - Heart sounds are distant, likely secondary to body habitus Abdomen: Bowel Sounds Present, Soft, Non Tender, Obese, - - she has BL pain in the low back Extremities: No clubbing, No cyanosis, No edema Skin: No rashes, No breakdown Neurological: Cranial nerves II-XII grossly intact, Neuro grossly intact Psych/Mental Status: Normal Affect, Appropriate Vital Signs Temp Pulse Resp BP Pulse Ox 97.5 F L 78 20 H 132/65 H 95 12/11/18 14:00 12/11/18 14:00 12/11/18 14:00 12/11/18 14:00 12/11/18 14:00 Oxygen Flow Rate (L/min) 2 Oxygen Delivery Method Room Air Weight: 273 lb 0.01 oz Body Mass Index (BMI) 48.3 Intake and Output for Last 24 Hours 12/09/18 12/10/18 12/11/18 23:59 23:59 23:59 Intake Total 1901 / 1901 Output Total 500 / 500 Balance 1401 / 1401 Microbiology Past 72 Hours 12/10/18 19:48 Urine Culture - Preliminary Urine, Clean Catch Presumptive E. coli 12/11/18 00:20 Respiratory Panel (PCR) - Final Mucosa - Nasopharyngeal 12/10/18 19:20 Blood Culture - Preliminary Blood Culture (Wb) - Venous Gram negative cliff Laboratory Tests Past 24 Hrs 12/10/18 12/10/18 12/10/18 18:52 18:52 18:57 WBC 16.3 H RBC 4.40 Hgb 13.4 Hct 38.6 MCV 87.7 MCH 30.5 MCHC 34.7 RDW 13.3 RDW Differential 43.0 Plt Count 166 MPV 11.2 Immature Gran % (Auto) 0.600 Neut % (Auto) 78.3 H Lymph % (Auto) 8.0 L [place] % (Auto) 12.1 H Eos % (Auto) 0.8 Baso % (Auto) 0.2 Absolute Neuts (auto) 12.8 H Absolute Lymphs (auto) 1.30 Total Counted Not Reportable Differential Comment Diff Path Review Reviewed RBC Morphology NORM C+C PT INR APTT Sodium Potassium Chloride Carbon Dioxide Anion Gap BUN Creatinine Estim Creat Clear Calc Est GFR (MDRD) Af Amer Est GFR (MDRD) Non-Af BUN/Creatinine Ratio Glucose Lactic Acid Calcium Phosphorus Magnesium Total Bilirubin Direct Bilirubin AST ALT Alkaline Phosphatase Total Protein Albumin Globulin Albumin/Globulin Ratio Urine Color Urine Clarity Urine pH Ur Specific [place] Urine Protein Urine Glucose (UA) Urine Ketones Urine Occult Blood Urine Nitrite Urine Bilirubin Urine Urobilinogen Ur Leukocyte Esterase Urine RBC Urine WBC Ur Squamous Epith Cells Urine Bacteria Urine Mucus Hepatitis A IgM Ab Pending Hepatitis A Ab Total Pending Hep Bs Antigen Pending Hep B Core Total Ab Pending Hep B Core IgM Ab Pending Monoscreen Negative 12/10/18 12/10/18 12/10/18 18:57 18:57 18:57 WBC RBC Hgb Hct MCV MCH MCHC RDW RDW Differential Plt Count MPV Immature Gran % (Auto) Neut % (Auto) Lymph % (Auto) [place] % (Auto) Eos % (Auto) Baso % (Auto) Absolute Neuts (auto) Absolute Lymphs (auto) Total Counted Differential Comment Diff Path Review RBC Morphology PT 13.6 INR 1.1 APTT 31.2 Sodium 132 L Potassium 2.9 L Chloride 97 L Carbon Dioxide 25.0 Anion Gap 10 BUN 9 Creatinine 1.13 H Estim Creat Clear Calc 48.72 Est GFR (MDRD) Af Amer 65 Est GFR (MDRD) Non-Af 54 L BUN/Creatinine Ratio 8.0 L Glucose 108 H Lactic Acid Cancelled Calcium 8.6 Phosphorus Magnesium Total Bilirubin 0.70 Direct Bilirubin AST 56 H ALT 109 H Alkaline Phosphatase 166 H Total Protein 7.7 Albumin 2.4 L Globulin 5.3 H Albumin/Globulin Ratio 0.5 L Urine Color Urine Clarity Urine pH Ur Specific [place] Urine Protein Urine Glucose (UA) Urine Ketones Urine Occult Blood Urine Nitrite Urine Bilirubin Urine Urobilinogen Ur Leukocyte Esterase Urine RBC Urine WBC Ur Squamous Epith Cells Urine Bacteria Urine Mucus Hepatitis A IgM Ab Hepatitis A Ab Total Hep Bs Antigen Hep B Core Total Ab Hep B Core IgM Ab Monoscreen 12/10/18 12/10/18 12/11/18 19:46 19:48 05:40 WBC 11.6 H RBC 4.36 Hgb 12.5 Hct 38.9 MCV 89.2 MCH 28.7 MCHC 32.1 RDW 13.3 RDW Differential 43.0 Plt Count 169 MPV 11.7 Immature Gran % (Auto) 0.700 Neut % (Auto) 77.9 H Lymph % (Auto) 8.0 L [place] % (Auto) 11.2 H Eos % (Auto) 2.0 Baso % (Auto) 0.2 Absolute Neuts (auto) 9.1 H Absolute Lymphs (auto) 0.93 Total Counted Not Reportable Differential Comment Diff Path Review RBC Morphology PT INR APTT Sodium Potassium Chloride Carbon Dioxide Anion Gap BUN Creatinine Estim Creat Clear Calc Est GFR (MDRD) Af Amer Est GFR (MDRD) Non-Af BUN/Creatinine Ratio Glucose Lactic Acid 0.6 Calcium Phosphorus Magnesium Total Bilirubin Direct Bilirubin AST ALT Alkaline Phosphatase Total Protein Albumin Globulin Albumin/Globulin Ratio Urine Color Yellow Urine Clarity Sl. Cloudy Urine pH 6.5 Ur Specific [place] 1.005 Urine Protein 30 H Urine Glucose (UA) Normal Urine Ketones Negative Urine Occult Blood 150 H Urine Nitrite Negative Urine Bilirubin Negative Urine Urobilinogen Normal Ur Leukocyte Esterase 500 H Urine RBC 0 SEEN Urine WBC 10-25 SEEN Ur Squamous Epith Cells 0 SEEN Urine Bacteria 1+ Urine Mucus 0 SEEN Hepatitis A IgM Ab Hepatitis A Ab Total Hep Bs Antigen Hep B Core Total Ab Hep B Core IgM Ab Monoscreen 12/11/18 12/11/18 05:40 05:40 WBC RBC Hgb Hct MCV MCH MCHC RDW RDW Differential Plt Count MPV Immature Gran % (Auto) Neut % (Auto) Lymph % (Auto) [place] % (Auto) Eos % (Auto) Baso % (Auto) Absolute Neuts (auto) Absolute Lymphs (auto) Total Counted Differential Comment Diff Path Review RBC Morphology PT INR APTT Sodium 140 Potassium 3.2 L Chloride 103 Carbon Dioxide 29.0 Anion Gap 8 BUN 11 Creatinine 1.13 H Estim Creat Clear Calc 48.72 Est GFR (MDRD) Af Amer 65 Est GFR (MDRD) Non-Af 54 L BUN/Creatinine Ratio 9.7 L Glucose 114 H Lactic Acid Calcium 8.4 L Phosphorus 4.3 Magnesium 2.2 Total Bilirubin 0.50 Direct Bilirubin 0.31 H AST 41 H ALT 95 H Alkaline Phosphatase 142 H Total Protein 7.0 Albumin 2.1 L Globulin 4.9 H Albumin/Globulin Ratio Urine Color Urine Clarity Urine pH Ur Specific [place] Urine Protein Urine Glucose (UA) Urine Ketones Urine Occult Blood Urine Nitrite Urine Bilirubin Urine Urobilinogen Ur Leukocyte Esterase Urine RBC Urine WBC Ur Squamous Epith Cells Urine Bacteria Urine Mucus Hepatitis A IgM Ab Hepatitis A Ab Total Hep Bs Antigen Hep B Core Total Ab Hep B Core IgM Ab Monoscreen Medical Necessity - Tobacco Use Smoking Status: Current every day smoker Tobacco Use: Cigarettes Assessment/Plan All Active Problems UTI (urinary tract infection) (Acute) Fever (Acute) Leukocytosis (Acute) Bronchitis (Acute) Sepsis (Acute) Impressions 1. Severe sepsis secondary to pyelonephritis with bacteremia 2. Acute pyelonephritis 3. Morbid obesity 4. Sleep disordered breathing 5. Cardiomegaly on a PA and lateral chest x-ray 6. Hyponatremia 7. Hypokalemia 8. Tobacco dependence 9. COPD suspected on CTA of the chest 10. Elevated creatinine-consistent with stage III chronic renal failure 11. Abnormal LFTs 12. adrenal enlargement on CTA of the chest Add Cipro until the cultures and the sensitivities are back decrease the IV rate......check a BNP and an ECHO supplement the potassium CT scan of the abd and the pelvis Hepatitis panel pending smoking cessation counselling given - refuses nicotine patch Overnight trending pulse ox Discontinue Toradol due to increased creatinine........ taking Motrin approximately 3 times daily at home. Recheck lab in the a.m. Code Visit Inpatient E&M: [id number] [facility] Hosp L3
--- NOTE | 2018-12-11 15:33 | ECHOCS_ITS ---
Reason For Study: Cardiomegaly Procedure This was a 2D Doppler, Color Flow transthoracic echocardiogram. The study was technically difficult. Contrast injection was performed. Exam performed portable in patient room. Left Ventricle Normal LV size. Left ventricular systolic function is normal. The estimated ejection fraction is 65 %. Diastolic function is indeterminate. No regional wall motion abnormalities noted. Right Ventricle Normal RV size. Normal systolic function. Atria Normal left atrium. Normal right atrium. No doppler evidence for ASD. Mitral Valve There is mild mitral annular calcification. Normal mitral valve. Trivial mitral valve insufficiency. Tricuspid Valve Normal tricuspid valve. Trivial tricuspid valve insufficiency. Right ventricular systolic pressure estimated to be 45 mmHg. Aortic Valve The aortic valve is not well visualized. Pulmonic Valve The pulmonic valve is not well visualized. Great Vessels The aortic the aortic root is not well visualized. Pericardium/Pleural No pericardial effusion. MMode/2D Measurements & Calculations LVIDd: 4.8 cm IVSd: 1.2 cm LVOT diam: 2.0 cm LVIDs: 3.3 cm LVPWd: 1.1 cm LVOT area: 3.0 cm2 FS: 31.6 % Time Measurements MV dec time: 0.18 sec Doppler Measurements & Calculations MV E max mauro: 128.8 cm/sec Lat Peak E' Mauro: 12.1 cm/sec Med Peak E' Mauro: 9.9 cm/sec MV A max mauro: 110.6 cm/sec E/E' lat: 10.6 E/E' med: 13.0 MV E/A: 1.2 MV V2 max: 148.3 cm/sec MV P1/2t max mauro: 148.3 cm/sec Ao V2 max: 215.1 cm/sec MV max P.8 mmHg MV P1/2t: 70.7 msec Ao max P.5 mmHg MV V2 mean: 82.9 cm/sec Ao V2 mean: 141.3 cm/sec MV mean P.2 mmHg MV dec slope: 614.1 cm/sec2 Ao mean P.0 mmHg MV V2 VTI: 36.0 cm MVA(P1/2t): 3.1 cm2 Ao V2 VTI: 40.7 cm MVA(VTI): 2.6 cm2 AUBREE(I,D): 2.3 cm2 AUBREE(V,D): 2.0 cm2 LV V1 max: 138.5 cm/sec SV(LVOT): 92.3 ml PA V2 max: 116.5 cm/sec LV V1 max P.7 mmHg LV V1 mean P.8 mmHg LV V1 mean: 88.0 cm/sec LV V1 VTI: 30.3 cm TR max mauro: 324.4 cm/sec TR max P.1 mmHg Interpretation Summary The study was technically difficult. Contrast injection was performed. Left ventricular systolic function is normal. The estimated ejection fraction is 65 %. There is mild mitral annular calcification. Trivial mitral valve insufficiency. Trivial tricuspid valve insufficiency. Right ventricular systolic pressure estimated to be 45 mmHg. Diastolic function is indeterminate. Ordering Physician: Maribell Reaves Referring Physician: Luana Muhmamad Performed By: Homer Rothman RCS
[2018-12-11] MEDS: Ceftriaxone 1 GM/50 ML BAG IV (21:38)
[2018-12-12] VITALS (8 sets, daily range): BP systolic 127–149; BP diastolic 63–81; PULSE 64–100; RESP 16–19; TEMP 36.4–36.8; O2SAT 94–96
[2018-12-12] MEDS: HYDROcodone Bitartrate/Apap 5/325 Tablet PO ×3 (03:32→18:52)
[2018-12-12 06:07] LABS: HEPATITIS B SURFACE AG Negative (Negative); Hepatitis A AB, Total Negative (Negative); Hepatitis A IgM Antibody Negative (Negative); Hepatitis B Core AB IgM Negative (Negative); Hepatitis B Core Ab Total Negative (Negative); Hepatitis C Ab <0.1 s/co ratio (0.0-0.9)
[2018-12-12 06:32] LABS: Absolute Lymphocyte Count 1.17 X10^3/ul (0.83-4.51); Absolute Neutrophil Count 10.1 X10^3/uL (2.0-7.7); Basophil# 0.05 X10^3/uL; Basophil% 0.4 % (0-1); Eosinophil# 0.36 X10^3/uL; Eosinophils% 2.8 % (0-5); Hematocrit 38.4 % (37-47); Hemoglobin 12.4 g/dl (12.0-15.0); Lymphocyte # 1.17 X10^3/ul (4.0); Lymphocyte % 9.1 % (19-41); Mean Corp Hgb Conc 32.3 g/gl (32-36); Mean Corpuscular Volume 89.7 fL (81-99); Mean Platelet Vol. 11.5 fl (6.2-12.0); Monocyte# 1.08 X10^3/uL; Monocyte% 8.4 % (0-10); Neutrophil # 10.08 X10^3/uL (2.7-7.7); Neutrophil % 78.2 % (47-70); Platelet Count 186 K/mm3 (150-450); RBC Distribution Width CV 13.7 % (11.6-14.6); RBC Distribution Width SD 44.2 fl (35.1-43.9); Red Blood Count 4.28 M/mm3 (4.2-5.4); White Blood Count 12.9 K/mm3 (4.4-11.0)
[2018-12-12 06:33] LABS: POSITIVE COUNT NO; POSITIVE DIFFERENTIAL NO; POSITIVE MORPHOLOGY YES
[2018-12-12 06:34] LABS: Differential Indicated SCAN CRITERIA MET
[2018-12-12 06:46] LABS: ALB/GLOB Ratio 0.4 RATIO (0.9-2.4); AST(SGOT) 67 U/L (15-37); Alanine Aminotransfer ALT/SGPT 145 U/L (13-56); Albumin, Serum 2.2 g/dL (3.2-5.0); Alkaline Phosphatase 153 U/L (45-117); Anion Gap 10 (5-15); BUN 11 mg/dL (7-18); BUN/Creat Ratio 11.4 RATIO (10-20); Calcium,Total 8.4 mg/dL (8.5-10.1); Chloride 103 mmol/L (98-107); Creatinine, Serum 0.96 mg/dL (0.55-1.02); EST Glomerular Filtration Rate 65 mL/min (>60); Est Glom Filt Rate - Afr Amer 78 mL/min (>60); Estimated Creatinine Clearance 57.35 ml/min; Globulin 5.2 g/dL (2.2-4.2); Glucose 93 mg/dL (74-106); Magnesium 2.3 mg/dL (1.6-2.6); Phosphorus 4.8 mg/dL (2.5-4.9); Potassium 3.3 mmol/L (3.5-5.1); Protein, Total 7.4 g/dL (6.4-8.2); Sodium Level 139 mmol/L (136-145)
[2018-12-12] MEDS: Ipratropium/Albuterol Sulfate 3 ML AMPUL.NEB INHALATION ×3 (07:08→19:09)
[2018-12-12] MEDS: oxyCODONE 5 MG Tablet PO ×3 (08:46→22:37)
[2018-12-12] MEDS: Ciprofloxacin 400 MG/200 ML BAG 200 MG IV (08:47)
[2018-12-12] MEDS: Enoxaparin 40 MG/0.4 ML Syringe SC (08:47)
[2018-12-12] MEDS: 0.9% NaCl Peripheral Flush Adult/Peds IV ×3 (08:53→17:27)
[2018-12-12] MEDS: Ondansetron 4 MG/2 ML Vial IV ×2 (08:53→17:30)
--- NOTE | 2018-12-12 11:05 | PCM.PROGNOTE ---
Patient Problems: Active and Suspected Problems UTI (urinary tract infection) (Acute) Fever (Acute) Leukocytosis (Acute) Bronchitis (Acute) Sepsis (Acute) COPD (chronic obstructive pulmonary disease) (Suspected) Subjective: Day #3 Rocephin and ciprofloxacin Afebrile for greater than 24 hours. Vital signs are stable. She is 94 to 95% on room air when awake. All lab was personally reviewed. The white blood cell count today is 12.9. Hemoglobin is stable at 12.4 and platelets are within normal limits. Despite supplementation the potassium remains low at 3.3. Magnesium is within normal limits. She was on no diuretics as an outpatient. LFTs remain mildly elevated. Urine culture is positive for a pansensitive E. coli. The blood culture is growing a gram-negative cliff lactose jewel hole gauger which is likely E. coli. The CT scan of the abdomen and pelvis was reviewed and showed a 5.4 cm left ovarian cyst. There was no hydronephrosis. There is hepatosplenomegaly present and diffuse fatty infiltration of the liver. There is a 2 cm right adrenal mass which is probably an adenoma and can be worked up as an outpatient. There was diffuse aortoiliac atherosclerotic calcific plaquing. Echocardiogram shows an estimated ejection fraction of 65% with no wall motion abnormalities. There was trivial MR and trivial TR and the right ventricular systolic pressure was estimated to be 45. Systolic function was indeterminate. The overnight trending pulse ox was reviewed and 13% of the time her pulse ox is less than 88%. There were 574 desaturation events. She continues to complain of feeling very fatigued. She denies shortness of breath. No nausea or vomiting. Continues to complain of bilateral back pain. Objective: PHYSICAL EXAM: GENERAL: alert, oriented X 3, Cooperative, NAD ORAL: moist mucosa, no mucosal lesions NECK: No JVD, supple, trachea midline LUNGS: CTA, symmetric chest expansion, diminished especially in the bases HEART: RRR, Normal S1 and S2, no rub, no gallop, distant heart sounds ABDOMEN: Obese, soft, NT, ND, BS present, no guarding with palpation EXTREMITIES: no edema, no cyanosis, no calf tenderness SKIN: No rashes, no breakdown NEUROLOGIC: no focal neurologic deficits PSYCH: appropriate, normal affect, pleasant - Physical Exam Vital Signs Temp Pulse Resp BP Pulse Ox 97.9 F 95 18 148/63 H 94 12/12/18 08:00 12/12/18 08:00 12/12/18 08:00 12/12/18 08:00 12/12/18 08:00 Oxygen Flow Rate (L/min) 0 Oxygen Delivery Method Room Air Weight: 273 lb 0.01 oz Body Mass Index (BMI) 48.3 Intake and Output for Last 24 Hours 12/10/18 12/11/18 12/12/18 23:59 23:59 23:59 Intake Total 2646 / 2646 908 / 908 Output Total 500 / 500 750 / 750 Balance 2146 / 2146 158 / 158 Microbiology Past 72 Hours 12/10/18 19:20 Blood Culture - Preliminary Blood Culture (Wb) - Venous GNR lactose jewel hole gauger 12/10/18 19:48 Urine Culture - Final Urine, Clean Catch Presumptive E. coli 12/11/18 00:20 Respiratory Panel (PCR) - Final Mucosa - Nasopharyngeal Laboratory Tests Past 24 Hrs 12/10/18 12/11/18 12/12/18 18:57 05:40 05:44 WBC 12.9 H RBC 4.28 Hgb 12.4 Hct 38.4 MCV 89.7 MCH 29.0 MCHC 32.3 RDW 13.7 RDW Differential 44.2 H Plt Count 186 MPV 11.5 Immature Gran % (Auto) 1.100 H Neut % (Auto) 78.2 H Lymph % (Auto) 9.1 L [place] % (Auto) 8.4 Eos % (Auto) 2.8 Baso % (Auto) 0.4 Absolute Neuts (auto) 10.1 H Absolute Lymphs (auto) 1.17 Total Counted Not Reportable Diff Path Review Reviewed Sodium Potassium Chloride Carbon Dioxide Anion Gap BUN Creatinine Estim Creat Clear Calc Est GFR (MDRD) Af Amer Est GFR (MDRD) Non-Af BUN/Creatinine Ratio Glucose Calcium Phosphorus Magnesium Total Bilirubin AST ALT Alkaline Phosphatase B-Natriuretic Peptide 58.0 Total Protein Albumin Globulin Albumin/Globulin Ratio 12/12/18 05:44 WBC RBC Hgb Hct MCV MCH MCHC RDW RDW Differential Plt Count MPV Immature Gran % (Auto) Neut % (Auto) Lymph % (Auto) [place] % (Auto) Eos % (Auto) Baso % (Auto) Absolute Neuts (auto) Absolute Lymphs (auto) Total Counted Diff Path Review Sodium 139 Potassium 3.3 L Chloride 103 Carbon Dioxide 26.0 Anion Gap 10 BUN 11 Creatinine 0.96 Estim Creat Clear Calc 57.35 Est GFR (MDRD) Af Amer 78 Est GFR (MDRD) Non-Af 65 BUN/Creatinine Ratio 11.4 Glucose 93 Calcium 8.4 L Phosphorus 4.8 Magnesium 2.3 Total Bilirubin 0.50 AST 67 H ALT 145 H Alkaline Phosphatase 153 H B-Natriuretic Peptide Total Protein 7.4 Albumin 2.2 L Globulin 5.2 H Albumin/Globulin Ratio 0.4 L Medical Necessity - Tobacco Use Smoking Status: Current every day smoker Tobacco Use: Cigarettes Assessment/Plan All Active Problems UTI (urinary tract infection) (Acute) Fever (Acute) Leukocytosis (Acute) Bronchitis (Acute) Sepsis (Acute) Impressions 1. Severe sepsis secondary to pyelonephritis with bacteremia 2. Acute pyelonephritis 3. Morbid obesity 4. Sleep disordered breathing 5. Cardiomegaly on a PA and lateral chest x-ray 6. Hyponatremia 7. Hypokalemia 8. Tobacco dependence 9. COPD suspected on CTA of the chest 10. Elevated creatinine-consistent with stage III chronic renal failure 11. Abnormal LFTs 12. adrenal enlargement on CTA of the chest 13. Pulmonary hypertension 14. Hepatosplenomegaly 15. Hepatic steatosis Discontinue Cipro Continue Rocephin 1 g daily x24 more hours and probable discharge in the a.m....awaiting the final results of the urine culture sensitivities Consult Dr. Narinder Bee to evaluate for an abnormal overnight trending pulse ox so she may follow-up in the pulmonary clinic to schedule PFTs and a formal sleep study. Supplement potassium and recheck in the a.m. Discussed the results of the echocardiogram with the patient. Reviewed the results of the overnight trending pulse ox with the patient 18% of the time the pulse ox is less than 88 and will arrange for home O2 until she can have a formal sleep study and be prescribed either BiPAP or CPAP....... I urged her to consider following up with the dietitians for the [facility] [employer] program for weight loss Code Visit Inpatient E&M: 55512 Subs Hosp L2
--- NOTE | 2018-12-12 12:21 | PCM.CONS.PUL ---
Reason for Consult Date of Consultation: 12/12/18 Reason for Consultation: Abnormal overnight oximetry with suspected underlying sleep apnea. History of Present Illness: The patient is a 53-year-old female, with a history as outlined below, who initially presented to the emergency department on December 10 with complaints of fever, dysuria, increased urinary frequency and back pain. On presentation to the emergency department, the patient was noted to be febrile, tachycardic and hypertensive. Laboratory evaluation revealed elevated white blood cell count to 16,000. There was evidence of acute kidney injury with a creatinine of 1.13. The patient also had elevated transaminase levels and alkaline phosphatase. CTA chest was obtained and revealed no evidence for pulmonary embolism. There was some areas of emphysematous changes bilaterally. The patient received supplemental IV fluids and antibiotics. She was subsequently admitted to the medical surgical floor for ongoing management. The patient's hospital course has included treatment for sepsis due to E. coli cystitis and bacteremia. Surface echocardiogram revealed normal LV size and function with an ejection fraction of 65%. Right ventricular systolic pressure was estimated to be 45 mmHg. The patient is currently afebrile, hemodynamically stable and maintaining appropriate oxygen saturations on room air. The patient's overnight oximetry study revealed multiple desaturations over the course of the night, in a pattern concerning for sleep apnea. The patient reports a smoking history that includes upwards of 1.5 packs of cigarettes per day since the age of 17. She has never had pulmonary function studies, nor been evaluated by department specialist previously. She does report that she has been told that she audibly snores when sleeping. She does report the presence of nonrestorative sleep, daytime hypersomnolence and episodes where she wakes up in the middle the night gasping for air. She has never undergone a formal sleep study. Past Medical History Past Medical History (Chronic Problems): Chronic Problems Morbid obesity (Chronic) Allergies Penicillins Allergy (Verified 06/04/18 18:32) Swelling morphine Adverse Reaction (Verified 12/10/18 23:24) Other makes me mean Home Medications: Ambulatory Orders Medication Instructions Recorded Ibuprofen [Advil] 800 mg PO Q4H PRN PRN 12/10/18 Surgical History: - - x3, bilateral carpal tunnel surgery. 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 Denies: Chills Eyes: Denies: Blurred vision, Double vision HEENT: Denies: Head Aches, Sinus Congestion, Sinus Drainage Cardiovascular: Denies: Chest Pain, Palpitations Respiratory: Reports: Shortness of Breath Gastrointestinal: Denies: Abdominal Pain, Nausea, Vomiting Genitourinary: Reports: Dysuria, Frequency Musculoskeletal: Reports: Back Pain Skin: Denies: Rash, Wounds Neurological: Denies: Numbness, Tingling, Focal weakness Psychiatric: Denies: Anxiety, Depression, Homicidal Ideations, Suicidal Ideations Hematologic/ Lymphatic: Denies: Easy Bruising, Easy Bleeding Patient Problems: Active and Suspected Problems UTI (urinary tract infection) (Acute) Fever (Acute) Leukocytosis (Acute) Bronchitis (Acute) Sepsis (Acute) COPD (chronic obstructive pulmonary disease) (Suspected) Objective: The patient's most recent lab work, culture data and imaging studies have all been personally reviewed. - Physical Exam General: Alert, Oriented x3, Cooperative, No apparent distress HEENT: Atraumatic, PERRLA, Normocephalic Oral: No Gingival or Mucosal Lesions/ Ulcerations Neck: Supple, No Nodes, Trachea Midline, - - Large neck circumference with redundant soft tissue. Lungs: No rhonchi, No wheeze, No rales, Diminished Cardiovascular: Regular rate, Regular Rhythm, Normal S1, Normal S2, No murmurs Abdomen: Bowel Sounds Present, Soft, Non Tender, Obese Extremities: No clubbing, No cyanosis, No edema Skin: No breakdown Musculoskeletal: No Tenderness to Palpation of Joints or Extremities, No Muscle Wasting Lymphatic: No Cervical, Supraclavicular, or Inguinal Adenopathy Neurological: Cranial nerves II-XII grossly intact, Neuro grossly intact Psych/Mental Status: Alert and oriented to time, place, person, mood and affect Vital Signs Temp Pulse Resp BP Pulse Ox 97.9 F 95 18 148/63 H 94 12/12/18 08:00 12/12/18 08:00 12/12/18 08:00 12/12/18 08:00 12/12/18 08:00 Oxygen Flow Rate (L/min) 0 Oxygen Delivery Method Room Air Weight: 273 lb 0.01 oz Body Mass Index (BMI) 48.3 Intake and Output for Last 24 Hours 12/10/18 12/11/18 12/12/18 23:59 23:59 23:59 Intake Total 2646 / 2646 908 / 908 Output Total 500 / 500 750 / 750 Balance 2146 / 2146 158 / 158 Microbiology Past 72 Hours 12/10/18 19:20 Blood Culture - Preliminary Blood Culture (Wb) - Venous GNR lactose supervising chef 12/10/18 19:48 Urine Culture - Final Urine, Clean Catch Presumptive E. coli 12/11/18 00:20 Respiratory Panel (PCR) - Final Mucosa - Nasopharyngeal Laboratory Tests Past 24 Hrs 12/10/18 12/11/18 12/12/18 18:57 05:40 05:44 WBC 12.9 H RBC 4.28 Hgb 12.4 Hct 38.4 MCV 89.7 MCH 29.0 MCHC 32.3 RDW 13.7 RDW Differential 44.2 H Plt Count 186 MPV 11.5 Immature Gran % (Auto) 1.100 H Neut % (Auto) 78.2 H Lymph % (Auto) 9.1 L [place] % (Auto) 8.4 Eos % (Auto) 2.8 Baso % (Auto) 0.4 Absolute Neuts (auto) 10.1 H Absolute Lymphs (auto) 1.17 Total Counted Not Reportable Diff Path Review Reviewed Sodium Potassium Chloride Carbon Dioxide Anion Gap BUN Creatinine Estim Creat Clear Calc Est GFR (MDRD) Af Amer Est GFR (MDRD) Non-Af BUN/Creatinine Ratio Glucose Calcium Phosphorus Magnesium Total Bilirubin AST ALT Alkaline Phosphatase B-Natriuretic Peptide 58.0 Total Protein Albumin Globulin Albumin/Globulin Ratio 12/12/18 05:44 WBC RBC Hgb Hct MCV MCH MCHC RDW RDW Differential Plt Count MPV Immature Gran % (Auto) Neut % (Auto) Lymph % (Auto) [place] % (Auto) Eos % (Auto) Baso % (Auto) Absolute Neuts (auto) Absolute Lymphs (auto) Total Counted Diff Path Review Sodium 139 Potassium 3.3 L Chloride 103 Carbon Dioxide 26.0 Anion Gap 10 BUN 11 Creatinine 0.96 Estim Creat Clear Calc 57.35 Est GFR (MDRD) Af Amer 78 Est GFR (MDRD) Non-Af 65 BUN/Creatinine Ratio 11.4 Glucose 93 Calcium 8.4 L Phosphorus 4.8 Magnesium 2.3 Total Bilirubin 0.50 AST 67 H ALT 145 H Alkaline Phosphatase 153 H B-Natriuretic Peptide Total Protein 7.4 Albumin 2.2 L Globulin 5.2 H Albumin/Globulin Ratio 0.4 L Clinical Impression(s) from Imaging Studies Chest X-Ray 12/10/18 19:25 IMPRESSION: Suboptimal inspiratory effort. No acute cardiopulmonary disease. Electronically Signed: Mitch Tim MD at 20:00 EDT , Service support , Chest CTA 12/10/18 20:02 IMPRESSION: Limited contrast bolus for subsegmental distal branch PE. Otherwise No gross evidence of pulmonary embolism. Areas of emphysematous change minimal air trapping suggesting probable underlying chronic obstructive pulmonary disease. Findings suggest possible trace calcification of the distal left anterior descending coronary artery Hepatomegaly with hepatic enlargement. Enlarged left greater than right adrenal glands. A simple small right adrenal mass. This is a limited study to evaluate the adrenal glands given the limited technique. The study is nearly a noncontrast study in the upper abdomen at the time of this contrast bolus. Consider follow-up MRI of the adrenal glands appropriate. Borderline enlarged pretracheal lymph node and borderline enlarged upper abdominal lymph nodes. In combination with moderate splenomegaly recommend correlation with clinical history for any lymphoproliferative disease. Electronically Signed: Sujey Nielson MD at 21:19 EDT Tel , Service support , Chest X-Ray 12/11/18 05:55 IMPRESSION: Findings in keeping with a mild degree of CHF. Electronically Signed: Jason Dunn, at 12:33 EDT , Service support , Abdomen/Pelvis CT 12/11/18 11:38 IMPRESSION: 1. 5.4 cm left ovarian cyst. The uterus and right adnexa are unremarkable. 2. No hydronephrosis. 3. Hepatosplenomegaly. 4. 2 cm right adrenal mass suggesting an adenoma. 5. Moderately diffuse aortoiliac atherosclerotic calcific plaquing. No demonstrated aneurysm. 6. The bowel is unremarkable without signs of obstruction. The appendix is normal. Electronically Signed: Mitch Tim MD at 15:06 EDT , Service support , Assessment/Plan All Active Problems UTI (urinary tract infection) (Acute) Fever (Acute) Leukocytosis (Acute) Bronchitis (Acute) Sepsis (Acute) RECOMMENDATIONS: 1. Place patient on 2 L/min of supplemental oxygen nightly at discharge. 2. Recommend outpatient diagnostic/titration polysomnogram to evaluate for sleep apnea. 3. Obtain outpatient PFTs to quantify lung function. 4. Smoking cessation is advisable. IMPRESSIONS: 1. Nighttime hypoxemia and daytime hypersomnolence The patient's constellation of symptoms are certainly concerning for underlying sleep disordered breathing. With this in mind, would recommend outpatient follow-up so that a diagnostic polysomnogram can be completed. The patient can be initiated on some form of nocturnal Pap therapy once RENA has been confirmed and she has completed a titration study. Orders for the sleep study will be placed at her office visit in the pulmonary medicine clinic. Recommend that she be maintained on 2 L/min of supplemental oxygen nightly until her sleep work-up can be completed. 2. Continuous tobacco dependency The patient has an extensive tobacco abuse history and continues to smoke cigarettes daily. I would recommend the patient undergo pulmonary function studies to evaluate for the presence of obstructive lung disease. If evident, she can be placed on an inhaler regimen to help alleviate some of her respiratory symptoms. Smoking cessation counseling was provided. 3. E. coli cystitis and bacteremia Continue antibiotics per hospitalist. This note was generated with [employer] dictation software. It may contain incorrect words, spelling, and punctuation that were not noted in checking the note before signing. DISPOSITION: The patient is currently scheduled to follow-up with our nurse practitioner in the pulmonary medicine clinic on December 26 at 8:45 AM. This information was conveyed to the patient at the bedside. Code Visit Inpatient E&M: 15157 Init Hosp L2
--- NOTE | 2018-12-12 12:30 | CON.PCM_ITS ---
Reason for Consult Date of Consultation: 12/12/18 Reason for Consultation: Abnormal overnight oximetry with suspected underlying sleep apnea. History of Present Illness: The patient is a 53-year-old female, with a history as outlined below, who initially presented to the emergency department on December 10 with complaints of fever, dysuria, increased urinary frequency and back pain. On presentation to the emergency department, the patient was noted to be febrile, tachycardic and hypertensive. Laboratory evaluation revealed elevated white blood cell count to 16,000. There was evidence of acute kidney injury with a creatinine of 1.13. The patient also had elevated transaminase levels and alkaline phosphatase. CTA chest was obtained and revealed no evidence for pulmonary embolism. There was some areas of emphysematous changes bilaterally. The patient received supplemental IV fluids and antibiotics. She was subsequently admitted to the medical surgical floor for ongoing management. The patient's hospital course has included treatment for sepsis due to E. coli cystitis and bacteremia. Surface echocardiogram revealed normal LV size and function with an ejection fraction of 65%. Right ventricular systolic pressure was estimated to be 45 mmHg. The patient is currently afebrile, hemodynamically stable and maintaining appropriate oxygen saturations on room air. The patient's overnight oximetry study revealed multiple desaturations over the course of the night, in a pattern concerning for sleep apnea. The patient reports a smoking history that includes upwards of 1.5 packs of cigarettes per day since the age of 17. She has never had pulmonary function studies, nor been evaluated by photographer's model previously. She does report that she has been told that she audibly snores when sleeping. She does report the presence of nonrestorative sleep, daytime hypersomnolence and episodes where she wakes up in the middle the night gasping for air. She has never undergone a formal sleep study. Past Medical History Past Medical History (Chronic Problems): Chronic Problems Morbid obesity (Chronic) Allergies Penicillins Allergy (Verified 06/04/18 18:32) Swelling morphine Adverse Reaction (Verified 12/10/18 23:24) Other makes me mean Home Medications: Ambulatory Orders Medication Instructions Recorded Ibuprofen [Advil] 800 mg PO Q4H PRN PRN 12/10/18 Surgical History: - - x3, bilateral carpal tunnel surgery. 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 Denies: Chills Eyes: Denies: Blurred vision, Double vision HEENT: Denies: Head Aches, Sinus Congestion, Sinus Drainage Cardiovascular: Denies: Chest Pain, Palpitations Respiratory: Reports: Shortness of Breath Gastrointestinal: Denies: Abdominal Pain, Nausea, Vomiting Genitourinary: Reports: Dysuria, Frequency Musculoskeletal: Reports: Back Pain Skin: Denies: Rash, Wounds Neurological: Denies: Numbness, Tingling, Focal weakness Psychiatric: Denies: Anxiety, Depression, Homicidal Ideations, Suicidal Ideations Hematologic/ Lymphatic: Denies: Easy Bruising, Easy Bleeding Patient Problems: Active and Suspected Problems UTI (urinary tract infection) (Acute) Fever (Acute) Leukocytosis (Acute) Bronchitis (Acute) Sepsis (Acute) COPD (chronic obstructive pulmonary disease) (Suspected) Objective: The patient's most recent lab work, culture data and imaging studies have all been personally reviewed. - Physical Exam General: Alert, Oriented x3, Cooperative, No apparent distress HEENT: Atraumatic, PERRLA, Normocephalic Oral: No Gingival or Mucosal Lesions/ Ulcerations Neck: Supple, No Nodes, Trachea Midline, - - Large neck circumference with redundant soft tissue. Lungs: No rhonchi, No wheeze, No rales, Diminished Cardiovascular: Regular rate, Regular Rhythm, Normal S1, Normal S2, No murmurs Abdomen: Bowel Sounds Present, Soft, Non Tender, Obese Extremities: No clubbing, No cyanosis, No edema Skin: No breakdown Musculoskeletal: No Tenderness to Palpation of Joints or Extremities, No Muscle Wasting Lymphatic: No Cervical, Supraclavicular, or Inguinal Adenopathy Neurological: Cranial nerves II-XII grossly intact, Neuro grossly intact Psych/Mental Status: Alert and oriented to time, place, person, mood and affect Vital Signs Temp Pulse Resp BP Pulse Ox 97.9 F 95 18 148/63 H 94 12/12/18 08:00 12/12/18 08:00 12/12/18 08:00 12/12/18 08:00 12/12/18 08:00 Oxygen Flow Rate (L/min) 0 Oxygen Delivery Method Room Air Weight: 273 lb 0.01 oz Body Mass Index (BMI) 48.3 Intake and Output for Last 24 Hours 12/10/18 12/11/18 12/12/18 23:59 23:59 23:59 Intake Total 2646 / 2646 908 / 908 Output Total 500 / 500 750 / 750 Balance 2146 / 2146 158 / 158 Microbiology Past 72 Hours 12/10/18 19:20 Blood Culture - Preliminary Blood Culture (Wb) - Venous GNR lactose retail operations specialist 12/10/18 19:48 Urine Culture - Final Urine, Clean Catch Presumptive E. coli 12/11/18 00:20 Respiratory Panel (PCR) - Final Mucosa - Nasopharyngeal Laboratory Tests Past 24 Hrs 12/10/18 12/11/18 12/12/18 18:57 05:40 05:44 WBC 12.9 H RBC 4.28 Hgb 12.4 Hct 38.4 MCV 89.7 MCH 29.0 MCHC 32.3 RDW 13.7 RDW Differential 44.2 H Plt Count 186 MPV 11.5 Immature Gran % (Auto) 1.100 H Neut % (Auto) 78.2 H Lymph % (Auto) 9.1 L [place] % (Auto) 8.4 Eos % (Auto) 2.8 Baso % (Auto) 0.4 Absolute Neuts (auto) 10.1 H Absolute Lymphs (auto) 1.17 Total Counted Not Reportable Diff Path Review Reviewed Sodium Potassium Chloride Carbon Dioxide Anion Gap BUN Creatinine Estim Creat Clear Calc Est GFR (MDRD) Af Amer Est GFR (MDRD) Non-Af BUN/Creatinine Ratio Glucose Calcium Phosphorus Magnesium Total Bilirubin AST ALT Alkaline Phosphatase B-Natriuretic Peptide 58.0 Total Protein Albumin Globulin Albumin/Globulin Ratio 12/12/18 05:44 WBC RBC Hgb Hct MCV MCH MCHC RDW RDW Differential Plt Count MPV Immature Gran % (Auto) Neut % (Auto) Lymph % (Auto) [place] % (Auto) Eos % (Auto) Baso % (Auto) Absolute Neuts (auto) Absolute Lymphs (auto) Total Counted Diff Path Review Sodium 139 Potassium 3.3 L Chloride 103 Carbon Dioxide 26.0 Anion Gap 10 BUN 11 Creatinine 0.96 Estim Creat Clear Calc 57.35 Est GFR (MDRD) Af Amer 78 Est GFR (MDRD) Non-Af 65 BUN/Creatinine Ratio 11.4 Glucose 93 Calcium 8.4 L Phosphorus 4.8 Magnesium 2.3 Total Bilirubin 0.50 AST 67 H ALT 145 H Alkaline Phosphatase 153 H B-Natriuretic Peptide Total Protein 7.4 Albumin 2.2 L Globulin 5.2 H Albumin/Globulin Ratio 0.4 L Clinical Impression(s) from Imaging Studies Chest X-Ray 12/10/18 19:25 IMPRESSION: Suboptimal inspiratory effort. No acute cardiopulmonary disease. Electronically Signed: Mitch Tim MD at 20:00 EDT , Service support , Chest CTA 12/10/18 20:02 IMPRESSION: Limited contrast bolus for subsegmental distal branch PE. Otherwise No gross evidence of pulmonary embolism. Areas of emphysematous change minimal air trapping suggesting probable underlying chronic obstructive pulmonary disease. Findings suggest possible trace calcification of the distal left anterior descending coronary artery Hepatomegaly with hepatic enlargement. Enlarged left greater than right adrenal glands. A simple small right adrenal mass. This is a limited study to evaluate the adrenal glands given the limited technique. The study is nearly a noncontrast study in the upper abdomen at the time of this contrast bolus. Consider follow-up MRI of the adrenal glands appropriate. Borderline enlarged pretracheal lymph node and borderline enlarged upper abdominal lymph nodes. In combination with moderate splenomegaly recommend correlation with clinical history for any lymphoproliferative disease. Electronically Signed: Sujey Nielson MD at 21:19 EDT Tel , Service support , Chest X-Ray 12/11/18 05:55 IMPRESSION: Findings in keeping with a mild degree of CHF. Electronically Signed: Jason Dunn, at 12:33 EDT , Service support , Abdomen/Pelvis CT 12/11/18 11:38 IMPRESSION: 1. 5.4 cm left ovarian cyst. The uterus and right adnexa are unremarkable. 2. No hydronephrosis. 3. Hepatosplenomegaly. 4. 2 cm right adrenal mass suggesting an adenoma. 5. Moderately diffuse aortoiliac atherosclerotic calcific plaquing. No demonstrated aneurysm. 6. The bowel is unremarkable without signs of obstruction. The appendix is normal. Electronically Signed: Mitch Tim MD at 15:06 EDT , Service support , Assessment/Plan All Active Problems UTI (urinary tract infection) (Acute) Fever (Acute) Leukocytosis (Acute) Bronchitis (Acute) Sepsis (Acute) RECOMMENDATIONS: 1. Place patient on 2 L/min of supplemental oxygen nightly at discharge. 2. Recommend outpatient diagnostic/titration polysomnogram to evaluate for sleep apnea. 3. Obtain outpatient PFTs to quantify lung function. 4. Smoking cessation is advisable. IMPRESSIONS: 1. Nighttime hypoxemia and daytime hypersomnolence The patient's constellation of symptoms are certainly concerning for underlying sleep disordered breathing. With this in mind, would recommend outpatient follow-up so that a diagnostic polysomnogram can be completed. The patient can be initiated on some form of nocturnal Pap therapy once RENA has been confirmed and she has completed a titration study. Orders for the sleep study will be placed at her office visit in the pulmonary medicine clinic. Recommend that she be maintained on 2 L/min of supplemental oxygen nightly until her sleep work-up can be completed. 2. Continuous tobacco dependency The patient has an extensive tobacco abuse history and continues to smoke cigarettes daily. I would recommend the patient undergo pulmonary function studies to evaluate for the presence of obstructive lung disease. If evident, she can be placed on an inhaler regimen to help alleviate some of her respiratory symptoms. Smoking cessation counseling was provided. 3. E. coli cystitis and bacteremia Continue antibiotics per hospitalist. This note was generated with [employer] dictation software. It may contain incorrect words, spelling, and punctuation that were not noted in checking the note before signing. DISPOSITION: The patient is currently scheduled to follow-up with our nurse practitioner in the pulmonary medicine clinic on December 26 at 8:45 AM. This information was conveyed to the patient at the bedside. Code Visit Inpatient E&M: 66666 Init Hosp L2
[2018-12-12] MEDS: Ceftriaxone 1 GM/50 ML BAG IV (22:36)
[2018-12-13 02:00] VITALS: BP 138/82; PULSE 93; RESP 20; TEMP 36.6; O2SAT 95
[2018-12-13] MEDS: HYDROcodone Bitartrate/Apap 5/325 Tablet PO (02:17)
[2018-12-13 02:20] VITALS: RESP 20; O2SAT 95
[2018-12-13] MEDS: 0.9% NaCl Peripheral Flush Adult/Peds IV (03:51)
[2018-12-13] MEDS: Ondansetron 4 MG/2 ML Vial IV (03:51)
--- NOTE | 2018-12-13 06:26 | PN_ITS ---
Patient Problems: Active and Suspected Problems UTI (urinary tract infection) (Acute) Fever (Acute) Leukocytosis (Acute) Bronchitis (Acute) Sepsis (Acute) COPD (chronic obstructive pulmonary disease) (Suspected) Subjective: The patient was seen and examined at the bedside this morning. Events from the last 24 hours have been reviewed. The patient is currently afebrile, hemodynamically stable and maintaining appropriate oxygen saturations on room air. No overnight issues were identified. The patient is currently sitting in her bedside recliner without any specific complaints. The patient was provided with a business card with her scheduled follow-up visit appointment time included. Objective: The patient's most recent lab work, culture data and imaging studies have all been personally reviewed. Surface echocardiogram revealed normal LV size and function with an ejection fraction of 65%. Right ventricular systolic pressure was estimated to be 45 mmHg. Respiratory viral panel was negative. Blood and urine cultures were both positive for E. coli, which was pansensitive. - Physical Exam General: Alert, Oriented x3, Cooperative, No apparent distress, - - Morbidly obese HEENT: Atraumatic, PERRLA, Normocephalic Oral: Moist Mucosa, No Gingival or Mucosal Lesions/ Ulcerations Neck: Supple, No Nodes, Trachea Midline, - - Large neck circumference with redundant soft tissue. Lungs: No rhonchi, No wheeze, No rales, Diminished Cardiovascular: Regular rate, Regular Rhythm, Normal S1, Normal S2, No murmurs Abdomen: Bowel Sounds Present, Soft, Non Tender, Obese Extremities: No clubbing, No cyanosis, No edema, Capillary Refill Less than 3 Seconds Skin: No rashes, No breakdown Musculoskeletal: No Tenderness to Palpation of Joints or Extremities, No Muscle Wasting Lymphatic: No Cervical, Supraclavicular, or Inguinal Adenopathy Neurological: Cranial nerves II-XII grossly intact, Neuro grossly intact Psych/Mental Status: Alert and oriented to time, place, person, mood and affect Vital Signs Temp Pulse Resp BP Pulse Ox 97.8 F 93 20 H 138/82 H 95 12/13/18 02:00 12/13/18 02:00 12/13/18 02:20 12/13/18 02:00 12/13/18 02:20 Oxygen Flow Rate (L/min) 0 Oxygen Delivery Method Room Air Weight: 273 lb 0.01 oz Body Mass Index (BMI) 48.3 Intake and Output for Last 24 Hours 12/11/18 12/12/18 12/13/18 23:59 23:59 23:59 Intake Total 2646 / 2646 2658 / 2658 300 / 300 Output Total 500 / 500 750 / 750 Balance 2146 / 2146 1908 / 1908 300 / 300 Microbiology Past 72 Hours 12/10/18 19:20 Blood Culture - Preliminary Blood Culture (Wb) - 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 coli 12/11/18 00:20 Respiratory Panel (PCR) - Final Mucosa - Nasopharyngeal Laboratory Tests Past 24 Hrs 12/12/18 12/12/18 05:44 05:44 WBC 12.9 H RBC 4.28 Hgb 12.4 Hct 38.4 MCV 89.7 MCH 29.0 MCHC 32.3 RDW 13.7 RDW Differential 44.2 H Plt Count 186 MPV 11.5 Immature Gran % (Auto) 1.100 H Neut % (Auto) 78.2 H Lymph % (Auto) 9.1 L Kidder % (Auto) 8.4 Eos % (Auto) 2.8 Baso % (Auto) 0.4 Absolute Neuts (auto) 10.1 H Absolute Lymphs (auto) 1.17 Total Counted Not Reportable Sodium 139 Potassium 3.3 L Chloride 103 Carbon Dioxide 26.0 Anion Gap 10 BUN 11 Creatinine 0.96 Estim Creat Clear Calc 57.35 Est GFR (MDRD) Af Amer 78 Est GFR (MDRD) Non-Af 65 BUN/Creatinine Ratio 11.4 Glucose 93 Calcium 8.4 L Phosphorus 4.8 Magnesium 2.3 Total Bilirubin 0.50 AST 67 H ALT 145 H Alkaline Phosphatase 153 H Total Protein 7.4 Albumin 2.2 L Globulin 5.2 H Albumin/Globulin Ratio 0.4 L Clinical Impression(s) from Imaging Studies Chest X-Ray 12/10/18 19:25 IMPRESSION: Suboptimal inspiratory effort. No acute cardiopulmonary disease. Electronically Signed: Mitch Tim MD at 20:00 EDT , Service support , Chest CTA 12/10/18 20:02 IMPRESSION: Limited contrast bolus for subsegmental distal branch PE. Otherwise No gross evidence of pulmonary embolism. Areas of emphysematous change minimal air trapping suggesting probable underlying chronic obstructive pulmonary disease. Findings suggest possible trace calcification of the distal left anterior descending coronary artery Hepatomegaly with hepatic enlargement. Enlarged left greater than right adrenal glands. A simple small right adrenal mass. This is a limited study to evaluate the adrenal glands given the limited technique. The study is nearly a noncontrast study in the upper abdomen at the time of this contrast bolus. Consider follow-up MRI of the adrenal glands appropriate. Borderline enlarged pretracheal lymph node and borderline enlarged upper abdominal lymph nodes. In combination with moderate splenomegaly recommend correlation with clinical history for any lymphoproliferative disease. Electronically Signed: Sujey Nielson MD at 21:19 EDT Tel , Service support , Chest X-Ray 12/11/18 05:55 IMPRESSION: Findings in keeping with a mild degree of CHF. Electronically Signed: Jason Dunn, at 12:33 EDT , Service support , Abdomen/Pelvis CT 12/11/18 11:38 IMPRESSION: 1. 5.4 cm left ovarian cyst. The uterus and right adnexa are unremarkable. 2. No hydronephrosis. 3. Hepatosplenomegaly. 4. 2 cm right adrenal mass suggesting an adenoma. 5. Moderately diffuse aortoiliac atherosclerotic calcific plaquing. No demonstrated aneurysm. 6. The bowel is unremarkable without signs of obstruction. The appendix is normal. Electronically Signed: Mitch Tim MD at 15:06 EDT , Service support , Medical Necessity - Tobacco Use Smoking Status: Current every day smoker Tobacco Use: Cigarettes Assessment/Plan All Active Problems UTI (urinary tract infection) (Acute) Fever (Acute) Leukocytosis (Acute) Bronchitis (Acute) Sepsis (Acute) RECOMMENDATIONS: 1. Place patient on 2 L/min of supplemental oxygen nightly at discharge. 2. Recommend outpatient diagnostic/titration polysomnogram to evaluate for sleep apnea. 3. Obtain outpatient PFTs to quantify lung function. 4. Smoking cessation is advisable. IMPRESSIONS: 1. Nighttime hypoxemia and daytime hypersomnolence The patient's constellation of symptoms are certainly concerning for underlying sleep disordered breathing. With this in mind, would recommend outpatient follow-up so that a diagnostic polysomnogram can be completed. The patient can be initiated on some form of nocturnal Pap therapy once RENA has been confirmed and she has completed a titration study. Orders for the sleep study will be placed at her office visit in the pulmonary medicine clinic. Recommend that she be maintained on 2 L/min of supplemental oxygen nightly until her sleep work-up can be completed. 2. Continuous tobacco dependency The patient has an extensive tobacco abuse history and continues to smoke cigarettes daily. I would recommend the patient undergo pulmonary function studies to evaluate for the presence of obstructive lung disease. If evident, she can be placed on an inhaler regimen to help alleviate some of her respiratory symptoms. Smoking cessation counseling was provided. 3. E. coli cystitis and bacteremia Continue antibiotics per hospitalist. This note was generated with [employer] dictation software. It may contain incorrect words, spelling, and punctuation that were not noted in checking the note before signing. The patient is currently scheduled to follow-up with our nurse practitioner in the pulmonary medicine clinic on December 26 at 8:45 AM. Please call with any questions. Code Visit Inpatient E&M: 29781 Subs Hosp L2
[2018-12-13 07:07] VITALS: PULSE 88; RESP 20; O2SAT 95
[2018-12-13] MEDS: Ipratropium/Albuterol Sulfate 3 ML AMPUL.NEB INHALATION (07:07)
[2018-12-13 08:24] VITALS: BP 143/72; PULSE 92; RESP 18; TEMP 36.8; O2SAT 93
[2018-12-13] MEDS: oxyCODONE 5 MG Tablet PO (08:46)
--- NOTE | 2018-12-13 09:54 | DCINST_ITS ---
- Discharge Diagnoses Current Active Problems: Current Active and Chronic Problems UTI (urinary tract infection) (Acute) Fever (Acute) Leukocytosis (Acute) Bronchitis (Acute) Sepsis (Acute) Morbid obesity (Chronic) You will use the following diet at home:: Calorie/Carbohydrate Controlled (specify 1200, 1400, etc) - 1800 calories, Cardiac - low fat, low salt Your food should be the consistency of: Regular Your liquids should be the consistency of: Regular/Thin Discharge Activity: - - Avoid exposure to any strong smells such as bleach, cleaning products, strong colognes or perfumes, paint fumes and smoke of any kind. Avoid sudden exposure to cold air because this can cause bronchospasm. You may want to cover your mouth when you go outside in the winter. Avoid exposure to anyone who is sick with a cough or sore throat. Return to work on:: 12/16/18 Call your doctor if you observe: Fever of 101 or Higher, Inability to urinate, Shortness of breath, Dizziness, Fainting spells, Chest pain, - - Call your PCP if severe diarrhea ( > 5 stools a day), painful sores in the mouth, painful swallowing, rash or itching. Taking a probiotic such as Lactobacillus or Kefir can help with loose stools while taking antibiotics. Instructions: What Are Snoring and Sleep Apnea?, Visiting a Sleep Clinic, Continuous Positive Air Pressure (CPAP), MyPlate Worksheet: 1,800 Calories Additional Instructions: 1. You had severe sepsis due to a urinary tract infection that spreqd to the kidney. there was bacteria in the blood and in the urine and the name of that bacteria is E. Coli. Make sure to finish all of the Cefadroxil. 2. You potassium was low in the hospital and you received a potassium supplement. Your family doc should recheck a potassium level in 7-10 days. 3. I have given you a prescription for Wellbutrin. I think this will help with smoking cessation and with appetite control. Take it in the morning once a day. I have also given you a prescription for a nicotine patch for you to fill if you think you need it. 4. There is fatty infiltration of the liver with mild increase in the liver enzymes. This can lead to cirrhosis so eat a low fat diet and try and lose weight. 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 You will need a referral from you family doc. 5. Good luck. It was a pleasure helping to care for you in the hospital and I would be happy to care for you anytime you are in the hospital and I am working. 4. Pending Tests on Discharge: none Allergies/Adverse Reactions: Allergies Penicillins Allergy (Verified 06/04/18 18:32) Swelling morphine Adverse Reaction (Verified 12/10/18 23:24) Other makes me mean Medications to take at Discharge Ibuprofen [Advil] 800 mg PO Q4H PRN PRN 12/10/18 Albuterol Inhaler [Ventolin Hfa (SP)] 1 - 2 puff INHALATION Q4H PRN PRN #1 inhaler 12/13/18 Bupropion HCl [Wellbutrin Xl] 150 mg PO DAILY #30 tab.er.24h 12/13/18 Cefadroxil 1 gm PO BID #14 tablet 12/13/18 Nicotine [Nicoderm Cq ([facility])] 21 mg TRANSDERM. DAILY #28 patch 12/13/18 Oxycodone [Oxyir] 5 - 10 mg PO Q4H PRN PRN 7 Days #30 tablet 12/13/18 The following prescriptions were given: Albuterol Inhaler [Ventolin Hfa (SP)] 1 - 2 puff INHALATION Q4H PRN PRN #1 inhaler PRN Reason: Wheezing Oxycodone [Oxyir] 5 - 10 mg PO Q4H PRN PRN 7 Days #30 tablet PRN Reason: Severe Pain (6-10/10) Bupropion HCl [Wellbutrin Xl] 150 mg PO DAILY #30 tab.er.24h Nicotine [Nicoderm Cq ([facility])] 21 mg TRANSDERM. DAILY #28 patch Cefadroxil 1 gm PO BID #14 tablet Primary Care Physician: Leonard Franks MD [Primary Care Provider] - Please follow up with your Primary Care Physician in: 5-7 days Test Results: Test results from this visit will be discussed in further detail at your follow- up appointment, if applicable. Please Follow Up With: Narinder Bee DO When: has appt Proposed Discharge Date: 12/13/18
--- NOTE | 2018-12-13 10:06 | PCM.DC.SUM ---
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 No acute cardiopulmonary disease. Electronically Signed: Mitch Tim MD at 20:00 EDT , Service support , Chest CTA 12/10/18 20:02 IMPRESSION: Limited contrast bolus for subsegmental distal branch PE. Otherwise No gross evidence of pulmonary embolism. Areas of emphysematous change minimal air trapping suggesting probable underlying chronic obstructive pulmonary disease. Findings suggest possible trace calcification of the distal left anterior descending coronary artery Hepatomegaly with hepatic enlargement. Enlarged left greater than right adrenal glands. A simple small right adrenal mass. This is a limited study to evaluate the adrenal glands given the limited technique. The study is nearly a noncontrast study in the upper abdomen at the time of this contrast bolus. Consider follow-up MRI of the adrenal glands appropriate. Borderline enlarged pretracheal lymph node and borderline enlarged upper abdominal lymph nodes. In combination with moderate splenomegaly recommend correlation with clinical history for any lymphoproliferative disease. Electronically Signed: Sujey Nielson MD at 21:19 EDT Tel , Service support , Chest X-Ray 12/11/18 05:55 IMPRESSION: Findings in keeping with a mild degree of CHF. Electronically Signed: Jason Dunn, at 12:33 EDT , Service support , Abdomen/Pelvis CT 12/11/18 11:38 IMPRESSION: 1. 5.4 cm left ovarian cyst. The uterus and right adnexa are unremarkable. 2. No hydronephrosis. 3. Hepatosplenomegaly. 4. 2 cm right adrenal mass suggesting an adenoma. 5. Moderately diffuse aortoiliac atherosclerotic calcific plaquing. No demonstrated aneurysm. 6. The bowel is unremarkable without signs of obstruction. The appendix is normal. Electronically Signed: Mitch Tim MD at 15:06 EDT , Service support , Microbiology 12/10/18 19:20 Blood Culture (Wb) - Venous Blood Culture - Final Escherichia coli 12/10/18 19:48 Urine, Clean Catch Urine Culture - Final Presumptive E. coli 12/11/18 00:20 Mucosa - Nasopharyngeal Respiratory Panel (PCR) - Final Dr. Narinder Bee-pulmonary medicine Operations: None Procedures: 2-D Echocardiogram - Interpretation Summary The study was technically difficult. Contrast injection was performed. Left ventricular systolic function is normal. The estimated ejection fraction is 65 %. There is mild mitral annular calcification. Trivial mitral valve insufficiency. Trivial tricuspid valve insufficiency. Right ventricular systolic pressure estimated to be 45 mmHg. Diastolic function is indeterminate., - - Overnight trending pulse ox Summary of Care Provided: The patient is a 53-year-old female with a past medical history of morbid obesity and tobacco dependence who presented to the emergency department at [facility] on 12/10/2018 complaining of fever associated with urinary urgency and frequency. She additionally complained of headache, myalgias and arthralgias. She denied nausea or vomiting. Temp in the ER was 101.1. Heart rate was 118 and the blood pressure was 156/72. Pulse ox was 96 to 98% on room air. White blood cell count was 16.3 with a left shift. Hemoglobin and platelets were within normal limits. Sodium was low at 132 and the potassium was low at 2.9. The BUN was 9 with a creatinine of 1.13. AST was 56 with an ALT of 109 and an alkaline phosphatase of 166. Total bilirubin was within normal limits. Lactic acid was normal at 0.6. A UA showed 0 squamous epithelial cells, 10-25 white blood cells and 1+ bacteria. Chest x-ray showed a poor inspiratory effort but no infiltrates, pleural effusions or pulmonary vascular congestion. CTA of the chest was done which was suboptimal but showed no gross evidence of pulmonary embolism. There were areas of emphysematous change suggestive of possible COPD. The adrenal glands were enlarged, left greater than right and there was a small right adrenal mass. She was admitted to the hospital with a diagnosis of sepsis secondary to urinary tract infection and was started on Rocephin in the emergency department and this was continued. In less than 24 hours the blood culture was positive for GM rods and Cipro was added until the cultures and sensitivities were resulted. While in the hospital she c/o feeling chronically fatigued, having restless legs and difficulties with her memory. She told me that she snores very loudly. An overnight trending pulse ox was done and she had 574 desaturations. 18% of the time her pulse ox was less than 88%. Home O2 for nocturnal use was arranged and consult was obtained with Dr. Bee who arranged an appt in the pulmonary dept for follow up to arrange PFT's and a sleep study. The blood and urine cultures were + for givens sensitive E. Coli. She was discharged home on Cefadroxil 1 gm BID to complete 10 days of treatment for severe sepsis due to pyelonephritis. She still was having flank pain and was given a RX for #30 Oxy IR. She was started on Wellbutrin for depression and to assist with smoking cessation. She is going to follow up with her PCP in 5-7 days. GENERAL: alert, oriented X 3, Cooperative, NAD ORAL: moist mucosa, no mucosal lesions NECK: No JVD, supple, trachea midline LUNGS: CTA, symmetric chest expansion, diminished especially in the bases HEART: RRR, Normal S1 and S2, no rub, no gallop, distant heart sounds ABDOMEN: Obese, soft, NT, ND, BS present, no guarding with palpation EXTREMITIES: no edema, no cyanosis, no calf tenderness SKIN: No rashes, no breakdown NEUROLOGIC: no focal neurologic deficits PSYCH: appropriate, normal affect, pleasant This note was generated with [employer] software. It may contain incorrect words, spelling, and punctuation that were not noted in checking the note before signing. - Physical Exam Vital Signs Temp Pulse Resp BP Pulse Ox 98.2 F 92 18 143/72 H 93 12/13/18 08:24 12/13/18 08:24 12/13/18 08:24 12/13/18 08:24 12/13/18 08:24 Oxygen Flow Rate (L/min) 0 Oxygen Delivery Method Room Air Weight: 273 lb 0.01 oz Body Mass Index (BMI) 48.3 Intake and Output for Last 24 Hours 12/11/18 12/12/18 12/13/18 23:59 23:59 23:59 Intake Total 2646 / 2646 2658 / 2658 1042 / 1042 Output Total 500 / 500 750 / 750 Balance 2146 / 2146 1908 / 1908 1042 / 1042 Microbiology Past 72 Hours 12/10/18 19:20 Blood Culture - Final Blood Culture (Wb) - Venous Escherichia coli 12/10/18 19:48 Urine Culture - Final Urine, Clean Catch Presumptive E. coli 12/11/18 00:20 Respiratory Panel (PCR) - Final Mucosa - Nasopharyngeal Discharge Activity: - - Avoid exposure to any strong smells such as bleach, cleaning products, strong colognes or perfumes, paint fumes and smoke of any kind. Avoid sudden exposure to cold air because this can cause bronchospasm. You may want to cover your mouth when you go outside in the winter. Avoid exposure to anyone who is sick with a cough or sore throat. Return to work on:: 12/16/18 Call your doctor if you observe: Fever of 101 or Higher, Inability to urinate, Shortness of breath, Dizziness, Fainting spells, Chest pain, - - Call your PCP if severe diarrhea ( > 5 stools a day), painful sores in the mouth, painful swallowing, rash or itching. Taking a probiotic such as Lactobacillus or Kefir can help with loose stools while taking antibiotics. Home Medications: Medications to take at Discharge Ibuprofen [Advil] 800 mg PO Q4H PRN PRN 12/10/18 Albuterol Inhaler [Ventolin Hfa (SP)] 1 - 2 puff INHALATION Q4H PRN PRN #1 inhaler 12/13/18 Bupropion HCl [Wellbutrin Xl] 150 mg PO DAILY #30 tab.er.24h 12/13/18 Cefadroxil 1 gm PO BID #14 tablet 12/13/18 Nicotine [Nicoderm Cq ([facility])] 21 mg TRANSDERM. DAILY #28 patch 12/13/18 Oxycodone [Oxyir] 5 - 10 mg PO Q4H PRN PRN 7 Days #30 tablet 12/13/18 Following Prescrptions Were Given to Patient: Albuterol Inhaler [Ventolin Hfa (SP)] 1 - 2 puff INHALATION Q4H PRN PRN #1 inhaler PRN Reason: Wheezing Oxycodone [Oxyir] 5 - 10 mg PO Q4H PRN PRN 7 Days #30 tablet PRN Reason: Severe Pain () Bupropion HCl [Wellbutrin Xl] 150 mg PO DAILY #30 tab.er.24h Nicotine [Nicoderm Cq ([facility])] 21 mg TRANSDERM. DAILY #28 patch Cefadroxil 1 gm PO BID #14 tablet Primary Care Physician: Leonard Franks MD [Primary Care Provider] - Please follow up with your Primary Care Physician in: 5-7 days Please Follow Up With: Narinder Bee, DO When: has appt Patient Instructions: What Are Snoring and Sleep Apnea?, Continuous Positive Air Pressure (CPAP), Visiting a Sleep Clinic, MyPlate Worksheet: 1,800 Calories Disposition: Home Minutes spent on discharge:: 35 Patient Condition:: Good Medical Necessity - Tobacco Use Smoking Status: Current every day smoker Tobacco Use: Cigarettes Meaningful Use Info Meaningful Use Diagnoses (Choose all that apply): None applicable Code Visit Inpatient E&M: 50169 Disch Hosp
--- NOTE | 2018-12-13 10:10 | DS.PCM_ITS ---
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 No acute cardiopulmonary disease. Electronically Signed: Mitch Tim MD at 20:00 EDT , Service support , Chest CTA 12/10/18 20:02 IMPRESSION: Limited contrast bolus for subsegmental distal branch PE. Otherwise No gross evidence of pulmonary embolism. Areas of emphysematous change minimal air trapping suggesting probable underlying chronic obstructive pulmonary disease. Findings suggest possible trace calcification of the distal left anterior descending coronary artery Hepatomegaly with hepatic enlargement. Enlarged left greater than right adrenal glands. A simple small right adrenal mass. This is a limited study to evaluate the adrenal glands given the limited technique. The study is nearly a noncontrast study in the upper abdomen at the time of this contrast bolus. Consider follow-up MRI of the adrenal glands appropriate. Borderline enlarged pretracheal lymph node and borderline enlarged upper abdominal lymph nodes. In combination with moderate splenomegaly recommend correlation with clinical history for any lymphoproliferative disease. Electronically Signed: Sujey Nielson MD at 21:19 EDT Tel , Service support , Chest X-Ray 12/11/18 05:55 IMPRESSION: Findings in keeping with a mild degree of CHF. Electronically Signed: Jason Dunn, at 12:33 EDT , Service support , Abdomen/Pelvis CT 12/11/18 11:38 IMPRESSION: 1. 5.4 cm left ovarian cyst. The uterus and right adnexa are unremarkable. 2. No hydronephrosis. 3. Hepatosplenomegaly. 4. 2 cm right adrenal mass suggesting an adenoma. 5. Moderately diffuse aortoiliac atherosclerotic calcific plaquing. No demonstrated aneurysm. 6. The bowel is unremarkable without signs of obstruction. The appendix is normal. Electronically Signed: Mitch Tim MD at 15:06 EDT , Service support , Microbiology 12/10/18 19:20 Blood Culture (Wb) - Venous Blood Culture - Final Escherichia coli 12/10/18 19:48 Urine, Clean Catch Urine Culture - Final Presumptive E. coli 12/11/18 00:20 Mucosa - Nasopharyngeal Respiratory Panel (PCR) - Final Dr. Narinder Bee-pulmonary medicine Operations: None Procedures: 2-D Echocardiogram - Interpretation Summary The study was te chnically difficult. Contrast injection was performed. Left ventricular systolic function is normal. The estimated ejection fraction is 65 %. There is mild mitral annular calcification. Trivial mitral valve insufficiency. Trivial tricuspid valve insufficiency. Right ventricular systolic pressure estimated to be 45 mmHg. Diastolic function is indeterminate., - - Overnight trending pulse ox Summary of Care Provided: The patient is a 53-year-old female with a past medical history of morbid obesity and tobacco dependence who presented to the emergency department at [facility] on 12/10/2018 complaining of fever associated with urinary urgency and frequency. She additionally complained of headache, myalgias and arthralgias. She denied nausea or vomiting. Temp in the ER was 101.1. Heart rate was 118 and the blood pressure was 156/72. Pulse ox was 96 to 98% on room air. White blood cell count was 16.3 with a left shift. Hemoglobin and platelets were within normal limits. Sodium was low at 132 and the potassium was low at 2.9. The BUN was 9 with a creatinine of 1.13. AST was 56 with an ALT of 109 and an alkaline phosphatase of 166. Total bilirubin was within normal limits. Lactic acid was normal at 0.6. A UA showed 0 squamous epithelial cells, 10-25 white blood cells and 1+ bacteria. Chest x-ray showed a poor inspiratory effort but no infiltrates, pleural effusions or pulmonary vascular congestion. CTA of the chest was done which was suboptimal but showed no gross evidence of pulmonary embolism. There were areas of emphysematous change suggestive of possible COPD. The adrenal glands were enlarged, left greater than right and there was a small right adrenal mass. She was admitted to the hospital with a diagnosis of sepsis secondary to urinary tract infection and was started on Rocephin in the emergency department and this was continued. In less than 24 hours the blood culture was positive for GM rods and Cipro was added until the cultures and sensitivities were resulted. While in the hospital she c/o feeling chronically fatigued, having restless legs and difficulties with her memory. She told me that she snores very loudly. An overnight trending pulse ox was done and she had 574 desaturations. 18% of the time her pulse ox was less than 88%. Home O2 for nocturnal use was arranged and consult was obtained with Dr. Bee who arranged an appt in the pulmonary dept for follow up to arrange PFT's and a sleep study. The blood and urine cultures were + for givens sensitive E. Coli. She was discharged home on Cefadroxil 1 gm BID to complete 10 days of treatment for severe sepsis due to pyelonephritis. She still was having flank pain and was given a RX for #30 Oxy IR. She was started on Wellbutrin for depression and to assist with smoking cessation. She is going to follow up with her PCP in 5-7 days. GENERAL: alert, oriented X 3, Cooperative, NAD ORAL: moist mucosa, no mucosal lesions NECK: No JVD, supple, trachea midline LUNGS: CTA, symmetric chest expansion, diminished especially in the bases HEART: RRR, Normal S1 and S2, no rub, no gallop, distant heart sounds ABDOMEN: Obese, soft, NT, ND, BS present, no guarding with palpation EXTREMITIES: no edema, no cyanosis, no calf tenderness SKIN: No rashes, no breakdown NEUROLOGIC: no focal neurologic deficits PSYCH: appropriate, normal affect, pleasant This note was generated with [employer] software. It may contain incorrect words, spelling, and punctuation that were not noted in checking the note before signing. - Physical Exam Vital Signs Temp Pulse Resp BP Pulse Ox 98.2 F 92 18 143/72 H 93 12/13/18 08:24 12/13/18 08:24 12/13/18 08:24 12/13/18 08:24 12/13/18 08:24 Oxygen Flow Rate (L/min) 0 Oxygen Delivery Method Room Air Weight: 273 lb 0.01 oz Body Mass Index (BMI) 48.3 Intake and Output for Last 24 Hours 12/11/18 12/12/18 12/13/18 23:59 23:59 23:59 Intake Total 2646 / 2646 2658 / 2658 1042 / 1042 Output Total 500 / 500 750 / 750 Balance 2146 / 2146 1908 / 1908 1042 / 1042 Microbiology Past 72 Hours 12/10/18 19:20 Blood Culture - Final Blood Culture (Wb) - Venous Escherichia coli 12/10/18 19:48 Urine Culture - Final Urine, Clean Catch Presumptive E. coli 12/11/18 00:20 Respiratory Panel (PCR) - Final Mucosa - Nasopharyngeal Discharge Activity: - - Avoid exposure to any strong smells such as bleach, cleaning products, strong colognes or perfumes, paint fumes and smoke of any kind. Avoid sudden exposure to cold air because this can cause bronchospasm. You may want to cover your mouth when you go outside in the winter. Avoid exposure to anyone who is sick with a cough or sore throat. Return to work on:: 12/16/18 Call your doctor if you observe: Fever of 101 or Higher, Inability to urinate, Shortness of breath, Dizziness, Fainting spells, Chest pain, - - Call your PCP if severe diarrhea ( > 5 stools a day), painful sores in the mouth, painful swallowing, rash or itching. Taking a probiotic such as Lactobacillus or Kefir can help with loose stools while taking antibiotics. Home Medications: Medications to take at Discharge Ibuprofen [Advil] 800 mg PO Q4H PRN PRN 12/10/18 Albuterol Inhaler [Ventolin Hfa (SP)] 1 - 2 puff INHALATION Q4H PRN PRN #1 inhaler 12/13/18 Bupropion HCl [Wellbutrin Xl] 150 mg PO DAILY #30 tab.er.24h 12/13/18 Cefadroxil 1 gm PO BID #14 tablet 12/13/18 Nicotine [Nicoderm Cq (PBKC)] 21 mg TRANSDERM. DAILY #28 patch 12/13/18 Oxycodone [Oxyir] 5 - 10 mg PO Q4H PRN PRN 7 Days #30 tablet 12/13/18 Following Prescrptions Were Given to Patient: Albuterol Inhaler [Ventolin Hfa (SP)] 1 - 2 puff INHALATION Q4H PRN PRN #1 inhaler PRN Reason: Wheezing Oxycodone [Oxyir] 5 - 10 mg PO Q4H PRN PRN 7 Days #30 tablet PRN Reason: Severe Pain () Bupropion HCl [Wellbutrin Xl] 150 mg PO DAILY #30 tab.er.24h Nicotine [Nicoderm Cq (PBKC)] 21 mg TRANSDERM. DAILY #28 patch Cefadroxil 1 gm PO BID #14 tablet Primary Care Physician: Leonard Franks MD [Primary Care Provider] - Please follow up with your Primary Care Physician in: 5-7 days Please Follow Up With: Narinder Bee, DO When: has appt Patient Instructions: What Are Snoring and Sleep Apnea?, Continuous Positive Air Pressure (CPAP), Visiting a Sleep Clinic, MyPlate Worksheet: 1,800 Calories Disposition: Home Minutes spent on discharge:: 35 Patient Condition:: Good Medical Necessity - Tobacco Use Smoking Status: Current every day smoker Tobacco Use: Cigarettes Meaningful Use Info Meaningful Use Diagnoses (Choose all that apply): None applicable Code Visit Inpatient E&M: 25103 Disch Hosp
--- NOTE | 2018-12-13 11:57 | CASEMGMT ---
MITCHEL MOTTA updated patient will discharge today. Called placed to [facility] to confirm discharge and setup delivery of nocturnal oxygen. Per Linda at [facility] patient contacted and stated she wants oxygen setup for next week. MITCHEL MOTTA went to patient's room but she had already left the hospital. MITCHEL MOTTA called and left message for patient regarding oxygen setup. RN KALIA received message from patient that she already talked with doctors and home health and has everything arranged and not to worry about oxygen. MITCHEL MOTTA called [facility] back and updated Christina regarding message received by patient.
[2018-12-13 12:26] LABS: Hep B Surface Antibodies Non Reactive (.)
== END 2018-12-13 11:19 | disposition home or self-care (01) | DRG 872 ==
LOC: ED 22:16 → MS3 22:44
PROVIDERS: Admitting Provider Family Medicine; Emergency Provider Emergency Medicine; Family Provider Family Medicine; PCP Family Medicine; Referring Provider Family Medicine; Visit Provider Internal Medicine
DX: A41.51 Sepsis due to Escherichia coli [E. coli] (principal); N10 Acute pyelonephritis; J44.0 Chronic obstructive pulmonary disease with (acute) lower respiratory infection; E87.1 Hypo-osmolality and hyponatremia; Z68.42 Body mass index [BMI] 45.0-49.9, adult; R65.20 Severe sepsis without septic shock; N18.3 Chronic kidney disease, stage 3 (moderate); I27.21 Secondary pulmonary arterial hypertension; R16.2 Hepatomegaly with splenomegaly, not elsewhere classified; J20.9 Acute bronchitis, unspecified; E87.6 Hypokalemia; E86.1 Hypovolemia; G47.30 Sleep apnea, unspecified; F17.210 Nicotine dependence, cigarettes, uncomplicated; E66.01 Morbid (severe) obesity due to excess calories; Z79.899 Other long term (current) drug therapy
CPT/HCPCS: 36415; 71046; 71275; 74177; 80048; 80053; 80076; 81001; 83605; 83735; 83880; 84100; 85025; 85610; 85730; 86308; 86704; 86705; 86706; 86708; 86709; 86803; 87040; 87077; 87086; 87088; 87186; 87340; 87633; 93005; 93306; 94640; 94762; 97802; 99283; J7030; J7050; Q9957; Q9967; A4216; C8929; J0744; J2405

== ENCOUNTER → 2019-01-10 06:12 | Outpatient (CLI) | payer OTHER, SELFPAY ==
[2018-12-26 08:55] VITALS: BMI 48.3
[2019-01-10 06:44] VITALS: PULSE 100; PULSE 108; PULSE 114; PULSE 116; PULSE 122; PULSE 128; PULSE 89; PULSE 90; O2SAT 93; O2SAT 94; O2SAT 95; O2SAT 96
--- NOTE | 2019-01-10 11:25 | PCM.PSN.6M ---
PSN 6 Minute Walk Test - 6 Minute Walk Test 6 Minute Walk Test: 6 Minute Walk Test PSN:6-Minute Walk Test Start: 01/10/19 06:44 Freq: Status: Active Protocol: RESP.6MINW Document 01/10/19 06:44 [facility] (Rec: 01/10/19 06:52 [facility] [id number]) 6 Minute Walk Test Date Performed 01/10/19 Time Performed 06:30 Height 5 ft 3 in Weight: 276 lb Weight in Pounds 276.[address]: Jane Mckee Assistive device used: None Pre-test Oxygen Delivery Method Room Air Pulse Ox (%) 96 Pulse Rate (60-100 beats/min) 90 Dyspnea Arsh Scale (0-10) 2 1st minute Oxygen Delivery Method Room Air Pulse Ox (%) 95 Pulse Rate (60-100 beats/min) 100 Dyspnea Arsh Scale (0-10) 3 Reported Symptoms Increased Work of Breathing 2nd minute Oxygen Delivery Method Room Air Pulse Ox (%) 94 Pulse Rate (60-100 beats/min) 108 H Dyspnea Arsh Scale (0-10) 4 Reported Symptoms Increased Work of Breathing 3rd minute Oxygen Delivery Method Room Air Pulse Ox (%) 93 Pulse Rate (60-100 beats/min) 114 H Dyspnea Arsh Scale (0-10) 5 Reported Symptoms Increased Work of Breathing 4th minute Oxygen Delivery Method Room Air Pulse Ox (%) 94 Pulse Rate (60-100 beats/min) 116 H Dyspnea Arsh Scale (0-10) 5 Reported Symptoms Increased Work of Breathing 5th minute Oxygen Delivery Method Room Air Pulse Ox (%) 94 Pulse Rate (60-100 beats/min) 122 H Dyspnea Arsh Scale (0-10) 5 Reported Symptoms Increased Work of Breathing 6th minute Oxygen Delivery Method Room Air Pulse Ox (%) 96 Pulse Rate (60-100 beats/min) 128 H Dyspnea Arsh Scale (0-10) 7 Reported Symptoms Increased Work of Breathing Post-test Oxygen Delivery Method Room Air Pulse Ox (%) 95 Pulse Rate (60-100 beats/min) 89 Dyspnea Arsh Scale (0-10) 2 Full Laps Walked 22 Partial Lap, Number of Tiles Walked 32 Total Distance Walked (ft) 1330 - Interpretation Interpretation: The patient ambulated 1330 feet over the course of 6 minutes beginning on room air without assistive devices or breaks. Pretesting oxygen saturation was noted to be 96% on room air. With ambulation, the yadiel oxygen saturation was 93%. There was no significant exertional oxygen desaturation. - Recommendations Recommendations: There is no indication for the use of supplemental oxygen at this time.
== END ==
PROVIDERS: Family Provider Family Medicine; PCP Family Medicine; Referring Provider Nurse Practitioner Acute Care; Visit Provider Nurse Practitioner Acute Care
DX: J44.9 Chronic obstructive pulmonary disease, unspecified (principal)
CPT/HCPCS: 94618

== ENCOUNTER → 2019-01-20 06:03 | Outpatient (CLI) | payer OTHER, SELFPAY ==
[2018-12-26 08:55] VITALS: BMI 48.3
--- NOTE | 2019-01-20 12:45 | PFT ---
INTRODUCTION: The patient is a 53-year-old female that presents for pulmonary function studies secondary to a diagnosis of COPD. Respiratory therapy reports good patient effort. Bronchodilators were used during testing. INTERPRETATION: Forced expiration spirometry demonstrates no evidence of a large airways obstructive ventilatory defect. There was no significant response to aerosolized bronchodilators. Spirograms are of good quality and plateau normally. Body plethysmography was performed and reveals lung volumes to be within normal limits. Diffusing capacity by single breath CO is moderately reduced at 58% of predicted. IMPRESSION: Isolated moderate reduction in diffusing capacity.
== END ==
PROVIDERS: Referring Provider Nurse Practitioner Acute Care; Visit Provider Nurse Practitioner Acute Care
DX: J44.9 Chronic obstructive pulmonary disease, unspecified (principal)
CPT/HCPCS: 94060; 94726; 94729

== ENCOUNTER → 2019-01-21 19:45 | Outpatient (CLI) | payer OTHER, SELFPAY ==
[2018-12-26 08:55] VITALS: BMI 48.3
== END ==
PROVIDERS: Referring Provider Nurse Practitioner Acute Care; Visit Provider Nurse Practitioner Acute Care
DX: G47.30 Sleep apnea, unspecified (principal)
CPT/HCPCS: 95811

== ENCOUNTER → 2019-01-31 06:30 | Outpatient (CLI) | payer OTHER, SELFPAY ==
[2018-12-26 08:55] VITALS: BMI 48.3
== END ==
PROVIDERS: Family Provider Family Medicine; PCP Family Medicine; Referring Provider Nurse Practitioner Acute Care; Visit Provider Nurse Practitioner Acute Care
DX: G47.30 Sleep apnea, unspecified (principal)

== ENCOUNTER → 2019-05-12 10:36 | Outpatient (CLI) | payer OTHER, SELFPAY ==
[2019-04-23 13:35] VITALS: BMI 49.7
== END ==
PROVIDERS: Family Provider Family Medicine; PCP Family Medicine; Referring Provider Internal Medicine Critical Care Medicine; Visit Provider Internal Medicine Critical Care Medicine
DX: G47.33 Obstructive sleep apnea (adult) (pediatric) (principal)

== ENCOUNTER → 2020-01-15 16:45 | Outpatient (CLI) | payer OTHER, SELFPAY ==
[2019-04-23 13:35] VITALS: BMI 49.7
[2020-01-15 17:30] LABS: Absolute Lymphocyte Count 3.14 X10^3/uL (0.83-4.51); Absolute Neutrophil Count 6.9 X10^3/uL (2.0-7.7); Basophil# 0.05 X10^3/uL; Basophil% 0.4 % (0-1); Eosinophil# 0.34 X10^3/uL; Hematocrit 43.6 % (37-47); Hemoglobin 14.3 g/dL (12.0-15.0); Lymphocyte # 3.14 X10^3/ul (4.0); Lymphocyte % 28.1 % (19-41); Mean Corp Hgb Conc 32.8 g/dL (32-36); Mean Corpuscular Hgb 29.9 pg (27.0-32.0); Mean Platelet Vol. 10.7 fl (6.2-12.0); Monocyte# 0.78 X10^3/uL; NRBC Flagged by Analyzer 0 % (0-5); Neutrophil # 6.85 X10^3/uL (2.7-7.7); Neutrophil % 61.2 % (47-70); Platelet Count 232 K/mm3 (150-450); RBC Distribution Width CV 12.9 % (11.6-14.6); RBC Distribution Width SD 42.8 fl (35.1-43.9); Red Blood Count 4.79 M/mm3 (4.2-5.4); White Blood Count 11.2 K/mm3 (4.4-11.0)
[2020-01-15 18:21] LABS: ALB/GLOB Ratio 0.9 RATIO (0.9-2.4); AST(SGOT) 19 U/L (15-37); Alanine Aminotransfer ALT/SGPT 40 U/L (13-56); Albumin, Serum 3.6 g/dL (3.2-5.0); Alkaline Phosphatase 135 U/L (45-117); Anion Gap 9 (5-15); BUN 16 mg/dL (7-18); BUN/Creat Ratio 17.6 RATIO (10-20); Calcium,Total 8.6 mg/dL (8.5-10.1); Chloride 106 mmol/L (98-107); Cholesterol 201 mg/dL (200); Creatinine, Serum 0.91 mg/dL (0.55-1.02); EST Glomerular Filtration Rate 69 mL/min (>60); Est Glom Filt Rate - Afr Amer 84 mL/min (>60); Globulin 4.1 g/dL (2.2-4.2); Glucose 85 mg/dL (74-106); High Density Lipoprotein 38 mg/dL; Potassium 3.9 mmol/L (3.5-5.1); Protein, Total 7.7 g/dL (6.4-8.2); Sodium Level 140 mmol/L (136-145); Thyroid Stim Hormone (TSH) 1.69 uIU/mL (0.358-3.74); Triglycerides 196 mg/dL; Very Low Density Lipoprotein 39 mg/dL (5-40)
== END ==
PROVIDERS: PCP Family Medicine; Referring Provider Family Medicine; Visit Provider Family Medicine
DX: D75.1 Secondary polycythemia (principal); I10 Essential (primary) hypertension; E78.5 Hyperlipidemia, unspecified
CPT/HCPCS: 36415; 80053; 80061; 84443; 85025

== ENCOUNTER → 2020-03-30 | Outpatient (CLI) | payer OTHER, SELFPAY ==
[2019-04-23 13:35] VITALS: BMI 49.7
== END | disposition home or self-care (01) ==
LOC: LABSPEC 16:11
PROVIDERS: PCP Family Medicine; Visit Provider Registered Nurse
DX: R31.9 Hematuria, unspecified (principal)
CPT/HCPCS: 87086; 87088

== ENCOUNTER → 2020-04-09 | Outpatient (CLI) | payer OTHER, SELFPAY ==
[2019-04-23 13:35] VITALS: BMI 49.7
== END | disposition home or self-care (01) ==
PROVIDERS: PCP Family Medicine; Referring Provider Registered Nurse; Visit Provider Registered Nurse
DX: R30.0 Dysuria (principal)
CPT/HCPCS: 87086; 87088

== ENCOUNTER → 2020-06-07 | Outpatient (CLI) | payer OTHER, SELFPAY ==
[2019-04-23 13:35] VITALS: BMI 49.7
== END | disposition home or self-care (01) ==
PROVIDERS: PCP Family Medicine; Visit Provider Family Medicine
DX: J06.9 Acute upper respiratory infection, unspecified (principal)
CPT/HCPCS: 87635; U0003

== ENCOUNTER 2020-09-21 18:37 | Emergency (ER) | payer OTHER, SELFPAY ==
[2019-04-23 13:35] VITALS: BMI 49.7
[2020-09-21 18:38] VITALS: BP 141/68; PULSE 80; RESP 22; TEMP 36.2; O2SAT 96; BMI 53.9
[2020-09-21 18:40] VITALS: BP 141/68; PULSE 80; RESP 22; TEMP 36.2; O2SAT 96
--- NOTE | 2020-09-21 18:49 | ED.VIS.GEN ---
History of Present Illness Chief Complaint: Back Informant: Patient Onset: Today Context: Sudden Onset Timing: Continuous Current Severity: Moderate Maximum Severity: Moderate Narrative: Patient is a 54-year-old female history of hypertension and obesity the presents to the emergency department low back pain. Patient was last night, she was getting out of her bed. She states she had to urinate. She states she tripped on a cord, planted her leg, and felt a twinge in her low back. She states since then, she had a burning pain down her left leg. She does have history of sciatica and states this feels similar. She denies any weakness. She denies any numbness. She is had no difficulty urinating or moving her bowels. She did not fall to the ground. She states is worse when she tries to bear weight and extend the leg. Prior similar symptoms: Yes Recent Illness/Hospitalization: No Past Medical History - Allergies and Home Meds Allergies/Adverse Reactions: Allergies Penicillins Allergy (Verified 06/02/19 10:20) Swelling morphine Adverse Reaction (Verified 06/02/19 10:20) Other makes me mean Primary Care Physician: Leonard Franks MD [Primary Care Provider] - Prior records reviewed: Yes Past Medical History: - - Hypertension Surgical History: - - x3, bilateral carpal tunnel surgery. Smoking Status: Current some day smoker - Family History Maternal Family History: Family History (Last Reviewed 06/02/19 @ 10:24 by Angelica Lauren) Mother Heart disease Grandmother Heart disease Family History: Reports: Heart Disease Paternal Family History: Family History (Last Reviewed 06/02/19 @ 10:24 by Angelica Lauren) Mother Heart disease Grandmother Heart disease Family History: Reports: Heart Disease Review of Systems General: Denies: Chills, Fever, Sweats Eyes: Denies: Visual changes - bilaterally, Diplopia ENT: Denies: Rhinorrhea, Sore throat Cardiovascular: Denies: Chest pain, Palpitations Respiratory: Denies: Dyspnea, Cough, Dyspnea on exertion Gastrointestinal: Denies: Abdominal pain, Nausea, Vomiting, Diarrhea, Melena, Hematochezia Genitourinary: Denies: Dysuria, Hematuria, Frequency Musculoskeletal: Reports: Back pain. Denies: Extremity Pain Skin: Denies: Rash, Wounds Neurological: Denies: Headache, Weakness, Numbness Physical Exam Vital Signs/Narrative: Vital Signs Temp Pulse Resp BP Pulse Ox 09/21/20 18:40 97.1 F L 80 22 H 141/68 H 96 09/21/20 18:38 97.1 F L 80 22 H 141/68 H 96 Inital Vital Signs reviewed: Yes General: Well nourished, Well developed, No Acute Distress Head: Normocephalic, Atraumatic Eyes: Perrl, EOMI ENT: Moist mucous membranes, No rhinorrhea Neck: Supple, Nontender Cardiovascular: Regular rate, Regular rhythm, No murmurs Respiratory: No distress, CTA bilaterally, Chest nontender Abdomen: Soft, Nontender, Nondistended, Normal bowel sounds Back: Nontender - Patient has some mild paraspinal tenderness on the left in the lumbar area. No step-off. Straight leg raise does reproduce paresthesias. Pulses are normal. Reflexes are normal. No weakness of dorsiflexion, plantar flexion, or extensor hallucis longus., Normal Inspection. Negative for: CVA tenderness, Spinal tenderness Extremities: Nontender, No edema Skin: Normal color, No rash Neurological: Alert, Oriented x3, Cranial nerves II-XII grossly intact, Normal Strength, Normal Sensation Psychological: Normal affect, Normal Mood Diagnostic/Tx/Re-eval - Medical Decision Making Patient presents with exacerbation of sciatica after mechanical injury. She did not fall. I do not feel that x-rays would be of any benefit at this time. She is agreeable with this. She has no red flag symptoms. She has normal reflexes and pulses. She has had improvement with Kenalog before in the past. I will give her dose of prednisone and Kenalog. She will also be kept on a short course of analgesics with outpatient follow-up. The patient is comfortable with this plan of care. Impression 1. Acute left sciatica ED Disposition - Plan for ED Patient: Instructions: ED Sciatica Prescriptions: Oxycodone HCl/Acetaminophen [Percocet 5/325] 1 tablet PO Q6H PRN PRN 3 Days #12 tablet PRN Reason: Pain Prescription Printed Referrals: Leonard Franks MD [Primary Care Provider] -
[2020-09-21] MEDS: predniSONE 20 MG Tablet 40 MG PO (19:03)
[2020-09-21] MEDS: oxyCODONE 5 MG Tablet PO (19:03)
[2020-09-21] MEDS: Triamcinolone Acetonide 40 MG/ML Vial IM (19:03)
[2020-09-21 19:16] VITALS: PULSE 74; RESP 19; O2SAT 94
== END 2020-09-21 19:33 | disposition home or self-care (01) ==
LOC: ED 19:00
PROVIDERS: Emergency Provider Emergency Medicine; PCP Family Medicine
DX: M54.42 Lumbago with sciatica, left side (principal); I10 Essential (primary) hypertension; E66.9 Obesity, unspecified; F17.200 Nicotine dependence, unspecified, uncomplicated
CPT/HCPCS: 90471; 96372; 99284

== ENCOUNTER → 2021-03-31 | Outpatient (CLI) | payer OTHER, SELFPAY | END | disposition home or self-care (01) | LOC: LABSPEC 15:10 | PROVIDERS: PCP Family Medicine; Referring Provider Family Medicine; Visit Provider Family Medicine | DX: U07.1 COVID-19 (principal) | CPT/HCPCS: 87635; U0005; U0003 ==

== ENCOUNTER 2021-04-01 16:56 | Emergency (ER) | payer OTHER, SELFPAY ==
[2021-04-01 16:57] VITALS: BP 161/66; PULSE 100; RESP 24; TEMP 36.1; O2SAT 94; BMI 53.1
--- NOTE | 2021-04-01 19:03 | EX.ED.DYSGE1 ---
HPI History of Present Illness Chief Complaint: General Illness Detail of Chief Complaint: Feeling sick for 8 days Informant: patient Narrative Narrative: Patient presents to the emergency department complaint of feeling ill for the last 8 days. Patient feels she is getting worse. Patient describes chills and sweats and fever. Patient's had some mild cough. She complains of body aches mostly in her low back. Patient has not had any Covid exposures but has not been vaccinated against Covid. Patient also is worried about sepsis as she has had urine sepsis in the past. Prior similar symptoms: Yes PFSH PFS Medical History (Updated 04/02/21 @ 00:[address] Shereen Martinez, DO) Abnormal LFTs Bacteremia due to Escherichia coli Bronchitis COPD (chronic obstructive pulmonary disease) Hepatic steatosis Hepatosplenomegaly Hypokalemia Hyponatremia Moderate pulmonary arterial systolic hypertension Morbid obesity Nocturnal hypoxemia Ovarian cyst Pyelonephritis Right adrenal mass Severe sepsis Sleep-disordered breathing Tobacco dependence Home Medications ibuprofen 800 mg PO Q4H PRN PRN 12/10/18 [History Last Taken 12/09/18] albuterol sulfate 1 - 2 puff INHALATION Q4H PRN PRN #1 inhaler 12/13/18 [Rx Last Taken Unknown] ondansetron 4 mg PO Q8H PRN PRN #10 tab 04/02/21 [Rx Last Taken Unknown] Allergy/AdvReac Type Severity Reaction Status Date / Time Penicillins Allergy Swelling Verified 04/01/21 16:59 morphine AdvReac Other Verified 04/01/21 16:59 Family History Mother Heart disease Grandmother Heart disease Social History Smoking Status: Former smoker Tobacco: How many years used: 35 Electronic Cigarette Use: without nicotine how long ago did patient quit smokin, 3ppd second hand exposure: Yes ROS ROS ED Constitutional Constitutional ED: Reports systems reviewed and no addt'l complaints, except as documented, chills, fever(s) and sweats; Denies body ache(s) or change in weight Eyes Eyes: Denies acute decrease in peripheral vision, change in vision, double vision or loss of vision ENT ENT ED: Reports none; Denies ear pain, lip swelling, loss taste/smell, neck pain, otalgia or sore throat Cardiovascular Cardiovascular: Reports none; Denies abdominal pain, chest pain with activity, leg edema, lightheadedness, palpitations, rapid heart rate or syncope Respiratory/Chest Respiratory/Chest: Reports none and cough; Denies change in mental status, dry cough, dyspnea, hemoptysis, shortness of breath at rest or shortness of breath with exertion Gastrointestinal Gastrointestinal: Reports none, diarrhea, nausea and vomiting; Denies abdominal pain, change in stool character, hematemesis, hematochezia, melena or rectal bleeding Genitourinary Genitourinary ED: Reports none; Denies abdominal discomfort, anuria, dysuria, genital pain or polyuria Musculoskeletal Musculoskeletal: Reports none and myalgias; Denies arthralgias, back pain, difficulty walking, extremity pain or muscle weakness Integumentary Reports none; Denies abscess or rash Neurologic Neurologic: Reports none; Denies abnormal gait, confusion, focal weakness, frequent falls, headache(s), loss of vision, numbness, paresthesias, radicular pain, vertigo or weakness Psychiatric Psychiatric: Reports systems reviewed and no addt'l complaints, except as documented and none; Denies behavioral changes, confusion, difficulty concentrating, hallucinations, suicidal ideation, tactile hallucinations or visual hallucinations Endocrine Endocrinology: Denies none, cold intolerance, excessive sweating, fatigue or heat intolerance Hematologic/Lymphatic Hematologic/Lymphatic: Reports none; Denies anemia, easy bleeding or easy bruising Allergic/Immunologic Allergic/Immunologic ED: Denies as per HPI, none, lip swelling, mouth swelling, throat swelling, tongue swelling or hives EXAM Physical Exam Const Vital Signs: 04/01/21 16:57 04/01/21 18:58 Temperature 97.0 F L Temperature Source Temporal Pulse Rate 100 Respiratory Rate 24 H Respiratory Effort Short of Breath Blood Pressure 161/66 H Blood Pressure Mean 97 Pulse Ox 94 Oxygen Delivery Method Room Air Positive well nourished and well developed General Appearance ED: well developed and NAD HEENT Reports TM's clear and moist mucous membranes normocephalic and atraumatic; Negative for trauma or tenderness Tympanic Membrane ED: Yes TM's clear Eyes PERRL and EOMs intact bilaterally General Eye ED: Negative for pale conjunctiva or scleral icterus Neck no lymphadenopathy, supple and no JVD General: Negative for tenderness Chest Wall inspection of chest normal and palpation of chest normal Chest: Negative for tenderness Resp normal respiratory effort and clear to auscultation bilaterally Effort and Inspection: Negative for respiratory distress or pain with movement Auscultation: Negative for rhonchi, wheezes or diminished lung sounds Cardio regular rate, regular rhythm, S1 normal heart sound, S2 normal heart sound and no murmurs Peripheral Pulses: pulses 2+ throughout GI normal to inspection, nondistended, normoactive bowel sounds, soft to palpation, non-tender, non-distended and no masses Back/Spine no CVA tenderness and no thoracic nor lumbar tenderness Extremity normal to inspection General Extremety ED: Negative for edema General Extremity: Negative for edema Neuro oriented x3, CN's II-XII intact bilaterally, no sensory deficits noted and gait normal Sensorium / Orientation: awake, alert, oriented to person, oriented to place and oriented to time Motor Exam: strength 5/5 throughout and strength abnormal Psych mental status grossly normal Skin no rashes or lesions noted and no wounds MDM MDM MDM Narrative Medical decision making narrative: IV line established on arrival. Patient was given saline and Zofran. Work-up otherwise unremarkable. She is really not having any respiratory symptoms. I feel she can be safely discharged home. Patient is not septic. Patient will be given a prescription for Zofran. She is to follow-up with her primary care physician 5 to 7 days. She is to return if increased difficulty breathing, dehydration, or condition worsen anyway. Lab Data Attestation: I reviewed the patient's lab results. Labs: Laboratory Results - last 24 hr 04/01/21 04/01/21 04/01/21 19:10 19:10 19:10 WBC 5.3 RBC 5.39 Hgb 14.6 Hct 45.3 MCV 84.0 MCH 27.1 MCHC 32.2 RDW Std Deviation 46.3 H RDW Coeff of Yousif 15.2 H Plt Count 169 MPV 10.6 Immature Gran % (Auto) 0.800 Neut % (Auto) 69.8 Lymph % (Auto) 23.7 [place] % (Auto) 5.3 Eos % (Auto) 0.0 Baso % (Auto) 0.4 Absolute Neuts (auto) 3.7 Absolute Lymphs (auto) 1.25 Nucleated RBC % 0 Sodium 132 L Potassium 3.1 L Chloride 100 Carbon Dioxide 27.0 Anion Gap 5 BUN 9 Creatinine 0.93 Estim Creat Clear Calc 57.87 Est GFR (MDRD) Af Amer 81 Est GFR (MDRD) Non-Af 67 BUN/Creatinine Ratio 9.7 L Glucose 112 H Lactic Acid 1.3 Calcium 8.5 Total Bilirubin 0.50 AST 45 H ALT 47 Alkaline Phosphatase 106 Total Protein 8.5 H Albumin 3.3 Globulin 5.2 H Albumin/Globulin Ratio 0.6 L Urine Color Urine Clarity Urine pH Ur Specific [place] Urine Protein Urine Glucose (UA) Urine Ketones Urine Occult Blood Urine Nitrite Urine Bilirubin Urine Urobilinogen Ur Leukocyte Esterase Urine RBC Urine WBC Ur Squamous Epith Cells Urine Bacteria Urine Mucus COVID-19 (DANIAL) 04/01/21 04/01/21 19:17 23:16 WBC RBC Hgb Hct MCV MCH MCHC RDW Std Deviation RDW Coeff of Yousif Plt Count MPV Immature Gran % (Auto) Neut % (Auto) Lymph % (Auto) [place] % (Auto) Eos % (Auto) Baso % (Auto) Absolute Neuts (auto) Absolute Lymphs (auto) Nucleated RBC % Sodium Potassium Chloride Carbon Dioxide Anion Gap BUN Creatinine Estim Creat Clear Calc Est GFR (MDRD) Af Amer Est GFR (MDRD) Non-Af BUN/Creatinine Ratio Glucose Lactic Acid Calcium Total Bilirubin AST ALT Alkaline Phosphatase Total Protein Albumin Globulin Albumin/Globulin Ratio Urine Color Yellow Urine Clarity Clear Urine pH 6.0 Ur Specific [place] 1.020 Urine Protein 30 H Urine Glucose (UA) Normal Urine Ketones 15 H Urine Occult Blood 25 H Urine Nitrite Negative Urine Bilirubin Negative Urine Urobilinogen Normal Ur Leukocyte Esterase Negative Urine RBC 0 SEEN Urine WBC 0-5 SEEN Ur Squamous Epith Cells 0 SEEN Urine Bacteria 0 SEEN Urine Mucus 0 SEEN COVID-19 (DANIAL) Positive Discharge Plan Triage Chief Complaint: General Illness ED Provider: Shereen Martinez Dx/Rx/DC Orders Clinical Impression: COVID-19, Gastroenteritis Instructions: Coronavirus Disease 2019 (COVID-19): Caring for Yourself or Others, ED Gastroenteritis, Viral (Adult) Prescriptions: New ondansetron [ondansetron] 4 MG tablet 4 mg PO Q8H PRN PRN (Reason: Nausea) Qty: 10 RF: 0 No Action ibuprofen 200 MG tablet 800 mg PO Q4H PRN PRN (Reason: pain and fever) RF: 0 albuterol sulfate 1 INHALER inhaler 1 - 2 puff inhalation Q4H PRN PRN (Reason: Wheezing) Qty: 1 RF: 0 Primary Care Provider: Leonard Franks Referrals: Leonard Franks MD [Primary Care Provider] - 5-7 Days Disposition Disposition: Home, Self Care
[2021-04-01] MEDS: Ondansetron 4 MG/2 ML Vial IV (19:23)
[2021-04-01] MEDS: 0.9% Normal Saline 1,000 ML 150 ML IV (19:27)
[2021-04-01 19:45] LABS: Absolute Lymphocyte Count 1.25 X10^3/uL (0.83-4.51); Absolute Neutrophil Count 3.7 X10^3/uL (2.0-7.7); Basophil# 0.02 X10^3/uL; Basophil% 0.4 % (0-1); Hematocrit 45.3 % (37-47); Hemoglobin 14.6 g/dL (12.0-15.0); Lymphocyte # 1.25 X10^3/ul (0.83-4.51); Lymphocyte % 23.7 % (19-41); Mean Corp Hgb Conc 32.2 g/dL (32-36); Mean Corpuscular Hgb 27.1 pg (27.0-32.0); Mean Platelet Vol. 10.6 fl (6.2-12.0); Monocyte# 0.28 X10^3/uL; Monocyte% 5.3 % (0-10); NRBC Flagged by Analyzer 0 % (0-5); Neutrophil # 3.68 X10^3/uL (2.7-7.7); Neutrophil % 69.8 % (47-70); Platelet Count 169 K/mm3 (150-450); RBC Distribution Width CV 15.2 % (11.6-14.6); RBC Distribution Width SD 46.3 fl (35.1-43.9); Red Blood Count 5.39 M/mm3 (4.2-5.4); White Blood Count 5.3 K/mm3 (4.4-11.0)
[2021-04-01 20:03] LABS: ALB/GLOB Ratio 0.6 RATIO (0.9-2.4); AST(SGOT) 45 U/L (15-37); Alanine Aminotransfer ALT/SGPT 47 U/L (13-56); Albumin, Serum 3.3 g/dL (3.2-5.0); Alkaline Phosphatase 106 U/L (45-117); Anion Gap 5 (5-15); BUN 9 mg/dL (7-18); BUN/Creat Ratio 9.7 RATIO (10-20); Calcium,Total 8.5 mg/dL (8.5-10.1); Chloride 100 mmol/L (98-107); Creatinine, Serum 0.93 mg/dL (0.55-1.02); EST Glomerular Filtration Rate 67 mL/min (>60); Est Glom Filt Rate - Afr Amer 81 mL/min (>60); Estimated Creatinine Clearance 57.87 ml/min; Globulin 5.2 g/dL (2.2-4.2); Glucose 112 mg/dL (74-106); Potassium 3.1 mmol/L (3.5-5.1); Protein, Total 8.5 g/dL (6.4-8.2); Sodium Level 132 mmol/L (136-145)
[2021-04-01 20:09] LABS: Lactic Acid 1.3 mmol/L (0.4-1.9)
[2021-04-01 20:36] LABS: Probe Check PASS; Specimen Processing Control PASS
[2021-04-01 23:45] LABS: Bacteria 0 SEEN /hpf (None Seen); Mucous, Urine 0 SEEN /hpf (<or=2+); Red Blood Cells-Urine 0 SEEN /hpf (0-5); Squamous Epithelial Cells - UA 0 SEEN /hpf (5-10)
[2021-04-01 23:47] LABS: Color, Urine Yellow (Yellow); Glucose, Dipstick Normal (Normal); Ketone-Dipstick 15 mg/dl (Negative); Leukocyte Esterase-Dipstick Negative /ul (Negative); Nitrite-Dipstick Negative (Negative); Occult Blood-Urine 25 /ul (Negative); Protein-Dipstick 30 mg/dl (Negative); Urine Bilirubin Dipstick Negative (Negative); Urine Clarity Clear (Clear); Urine Urobilinogen Normal (Normal)
[2021-04-02 00:29] LABS: White Blood Cells 0-5 SEEN /hpf (0-5)
[2021-04-02 00:42] VITALS: BP 110/66; O2SAT 96
[2021-04-02] MEDS: Loperamide 2 MG Capsule 4 MG PO (00:43)
== END 2021-04-02 00:46 | disposition home or self-care (01) ==
PROVIDERS: Emergency Provider Emergency Medicine; PCP Family Medicine
DX: U07.1 COVID-19 (principal); K52.9 Noninfective gastroenteritis and colitis, unspecified; J44.9 Chronic obstructive pulmonary disease, unspecified; I27.21 Secondary pulmonary arterial hypertension; E66.01 Morbid (severe) obesity due to excess calories; Z87.891 Personal history of nicotine dependence
CPT/HCPCS: 36415; 80053; 81001; 83605; 85025; 87040; 87635; 96361; 96374; 99285; J7030; U0005; A4216; J2405; U0003

== ENCOUNTER 2021-11-10 19:48 | Inpatient (IN) | payer OTHER, SELFPAY ==
[2021-11-10 19:49] VITALS: BP 178/61; PULSE 115; RESP 18; TEMP 36.8; O2SAT 96; BMI 58.4
[2021-11-10 19:50] VITALS: BP 178/61; PULSE 115; RESP 18; TEMP 36.8; O2SAT 96
--- NOTE | 2021-11-10 21:41 | ED.RN ---
This RN at bedside with Dr Santiago for assessment of right breast abscess. Dr Santiago also preformed bedside ultrasound and wound culture. This RN placed clean, dry dressing over open area.
--- NOTE | 2021-11-10 21:44 | EX.ED.DYSGE1 ---
HPI History of Present Illness Chief Complaint: Abscess Informant: patient Narrative Narrative: 56-year-old female presenting to the emergency department with infection of the right breast. Patient states that started yesterday and came on suddenly. She notes a fever today. She states that there is an area over the inferior medial to the nipple aspect of the breast that has been draining pus today. She went to urgent care and was referred to emergency. Patient has had prior bacteremia before. [facility] Medical History Abnormal LFTs Bacteremia due to Escherichia coli Bronchitis COPD (chronic obstructive pulmonary disease) Hepatic steatosis Hepatosplenomegaly Hypokalemia Hyponatremia Moderate pulmonary arterial systolic hypertension Morbid obesity Nocturnal hypoxemia Ovarian cyst Pyelonephritis Right adrenal mass Severe sepsis Sleep-disordered breathing Tobacco dependence Home Medications ibuprofen 800 mg PO Q4H PRN PRN 12/10/18 [History Last Taken 12/09/18] albuterol sulfate 1 - 2 puff INHALATION Q4H PRN PRN #1 inhaler 12/13/18 [Rx Last Taken Unknown] ondansetron 4 mg PO Q8H PRN PRN #10 tab 04/02/21 [Rx Last Taken Unknown] Allergy/AdvReac Type Severity Reaction Status Date / Time Penicillins Allergy Swelling Verified 04/01/21 16:59 morphine AdvReac Other Verified 04/01/21 16:59 Family History Mother Heart disease Grandmother Heart disease Social History Smoking Status: Former smoker Tobacco: How many years used: 35 Electronic Cigarette Use: without nicotine how long ago did patient quit smokin, 3ppd second hand exposure: Yes ROS ROS ED Constitutional Constitutional ED: Reports chills and fever(s); Denies weight loss Eyes Eyes: Denies change in vision or diplopia ENT ENT ED: Denies ear pain, rhinorrhea or sore throat Cardiovascular Cardiovascular: Denies chest pain, orthopnea, palpitations or racing heartbeat Respiratory/Chest Respiratory/Chest: Denies cough, dyspnea or orthopnea Gastrointestinal Gastrointestinal: Denies abdominal pain, diarrhea, nausea or vomiting Genitourinary Genitourinary ED: Denies dysuria, hematuria or urinary frequency Musculoskeletal Musculoskeletal: Denies arthralgias or myalgias Integumentary Reports abscess and rash Neurologic Neurologic: Denies headache(s) or weakness Psychiatric Psychiatric: Denies anxiety, depression, suicidal ideation or suicidal thoughts Endocrine Endocrinology: Denies polydipsia, polyphagia or polyuria Allergic/Immunologic Allergic/Immunologic ED: Denies mouth swelling, tongue swelling or urticaria EXAM Physical Exam Const Vital Signs: 11/10/21 19:49 11/10/21 19:50 11/10/21 22:12 Temperature 98.2 F 98.2 F Temperature Source Temporal Temporal Pulse Rate 115 H 115 H 107 H Respiratory Rate 18 18 20 H Blood Pressure 178/61 H 178/61 H 144/55 H Blood Pressure Mean 100 100 84 Pulse Ox 96 96 95 Oxygen Delivery Method Room Air Room Air Room Air Positive well nourished, well developed and obese General Appearance ED: well developed Nutritional Appearance: obese HEENT Reports normocephalic, head/scalp atraumatic, TM's clear and moist mucous membranes Negative for trauma Tympanic Membrane ED: Yes TM's clear Eyes PERRL and EOMs intact bilaterally Neck no lymphadenopathy, supple and no JVD Chest Wall Chest Narrative: The right breast demonstrates erythema over the medial and inferior aspects of the right breast. There is a half dollar sized area of sloughing skin that appears to have had some purulent drainage from it. Not able to express any pus at this time. The area is very tender. There is no drainage from the nipple. Resp normal respiratory effort and clear to auscultation bilaterally Cardio regular rate, regular rhythm and no murmurs GI normal to inspection, nondistended, normoactive bowel sounds and non-tender Palpation: soft Back/Spine no CVA tenderness and normal ROM Extremity normal to inspection General Extremety ED: Negative for edema General Extremity: Negative for edema Neuro oriented x3 and CN's II-XII intact bilaterally Sensorium / Orientation: alert Motor Exam: strength 5/5 throughout Psych mental status grossly normal Mood & Affect: Negative for depressed or tearful Skin no rashes or lesions noted and no wounds MDM MDM MDM Narrative Medical decision making narrative: Bedside ultrasound was performed by this physician. I do not palpate if fluctuant area and I do not see a area amendable to simple I&D here in the department. Patient has remained afebrile. Her white count is 17.3. She has a normal lactic acid. Blood cultures were obtained and the patient received vancomycin and clindamycin. Oxycodone was given for pain. A wound culture was obtained. I will speak with the hospitalist regarding admission Lab Data Attestation: I reviewed the patient's lab results. Labs: Laboratory Results - last 24 hr 11/10/21 11/10/21 11/10/21 21:50 21:50 21:50 WBC 17.3 H RBC 4.68 Hgb 13.6 Hct 41.3 MCV 88.2 MCH 29.1 MCHC 32.9 RDW Std Deviation 43.2 RDW Coeff of Yousif 13.3 Plt Count 260 MPV 10.4 Immature Gran % (Auto) 0.600 Neut % (Auto) 75.4 H Lymph % (Auto) 15.7 L [place] % (Auto) 6.7 Eos % (Auto) 1.3 Baso % (Auto) 0.3 Absolute Neuts (auto) 13.1 H Absolute Lymphs (auto) 2.71 Nucleated RBC % 0 PT 13.7 INR 1.1 APTT 27.9 Sodium 135 L Potassium 3.8 Chloride 102 Carbon Dioxide 26.0 Anion Gap 7 BUN 11 Creatinine 0.90 Estim Creat Clear Calc 59.11 Est GFR (MDRD) Af Amer 84 Est GFR (MDRD) Non-Af 69 BUN/Creatinine Ratio 12.2 Glucose 108 H Lactic Acid Calcium 9.0 Total Bilirubin 0.40 AST 20 ALT 36 Alkaline Phosphatase 106 Total Protein 8.3 H Albumin 3.2 Globulin 5.1 H Albumin/Globulin Ratio 0.6 L 11/10/21 21:50 WBC RBC Hgb Hct MCV MCH MCHC RDW Std Deviation RDW Coeff of Yousif Plt Count MPV Immature Gran % (Auto) Neut % (Auto) Lymph % (Auto) [place] % (Auto) Eos % (Auto) Baso % (Auto) Absolute Neuts (auto) Absolute Lymphs (auto) Nucleated RBC % PT INR APTT Sodium Potassium Chloride Carbon Dioxide Anion Gap BUN Creatinine Estim Creat Clear Calc Est GFR (MDRD) Af Amer Est GFR (MDRD) Non-Af BUN/Creatinine Ratio Glucose Lactic Acid 1.1 Calcium Total Bilirubin AST ALT Alkaline Phosphatase Total Protein Albumin Globulin Albumin/Globulin Ratio Discharge Plan Dx/Rx/DC Orders Clinical Impression: Abscess of breast, right, Mastitis, Sepsis Disposition Disposition: Acute Care Hospital [facility]
[2021-11-10 22:12] VITALS: BP 144/55; PULSE 107; RESP 20; O2SAT 95
[2021-11-10 22:13] LABS: Absolute Lymphocyte Count 2.71 X10^3/uL (0.83-4.51); Absolute Neutrophil Count 13.1 X10^3/uL (2.0-7.7); Basophil# 0.05 X10^3/uL; Basophil% 0.3 % (0-1); Eosinophil# 0.22 X10^3/uL; Eosinophils% 1.3 % (0-5); Hematocrit 41.3 % (37-47); Hemoglobin 13.6 g/dL (12.0-15.0); Lymphocyte # 2.71 X10^3/ul (0.83-4.51); Lymphocyte % 15.7 % (19-41); Mean Corp Hgb Conc 32.9 g/dL (32-36); Mean Corpuscular Hgb 29.1 pg (27.0-32.0); Mean Corpuscular Volume 88.2 fL (81-99); Mean Platelet Vol. 10.4 fl (6.2-12.0); Monocyte# 1.15 X10^3/uL; Monocyte% 6.7 % (0-10); NRBC Flagged by Analyzer 0 % (0-5); Neutrophil # 13.06 X10^3/uL (2.7-7.7); Neutrophil % 75.4 % (47-70); Platelet Count 260 K/mm3 (150-450); RBC Distribution Width CV 13.3 % (11.6-14.6); RBC Distribution Width SD 43.2 fl (35.1-43.9); Red Blood Count 4.68 M/mm3 (4.2-5.4); White Blood Count 17.3 K/mm3 (4.4-11.0)
[2021-11-10] MEDS: oxyCODONE 5 MG Tablet 10 MG PO (22:16)
[2021-11-10] MEDS: Ondansetron 4 MG/2 ML Vial IV (22:16)
[2021-11-10 22:21] LABS: International Normalized Ratio 1.1; Prothrombin Time (Protime)PT. 13.7 SECONDS (11.7-14.9)
[2021-11-10 22:22] LABS: Partial Thromboplast Time 27.9 Seconds (24.1-36.2)
[2021-11-10 22:30] LABS: ALB/GLOB Ratio 0.6 RATIO (0.9-2.4); AST(SGOT) 20 U/L (15-37); Alanine Aminotransfer ALT/SGPT 36 U/L (13-56); Albumin, Serum 3.2 g/dL (3.2-5.0); Alkaline Phosphatase 106 U/L (45-117); Anion Gap 7 (5-15); BUN 11 mg/dL (7-18); BUN/Creat Ratio 12.2 RATIO (10-20); Chloride 102 mmol/L (98-107); EST Glomerular Filtration Rate 69 mL/min (>60); Est Glom Filt Rate - Afr Amer 84 mL/min (>60); Estimated Creatinine Clearance 59.11 ml/min; Globulin 5.1 g/dL (2.2-4.2); Glucose 108 mg/dL (74-106); Lactic Acid 1.1 mmol/L (0.4-1.9); Potassium 3.8 mmol/L (3.5-5.1); Protein, Total 8.3 g/dL (6.4-8.2); Sodium Level 135 mmol/L (136-145)
--- NOTE | 2021-11-10 22:40 | ED.RN ---
Blood cultures ordered at this time, Dr Santiago aware that antibiotics have already been administered and Dr Santiago still wants blood cultures drawn.
--- NOTE | 2021-11-10 22:52 | PCM.HP.STD ---
HPI - General General Date of Admission: 11/10/21 Date of Service: 11/10/21 Chief Complaint: R breast abscess, draining HPI Narrative The patient is a 56 y/o F w/ PMHx: RENA, Morbid Obesity, COPD, Tobacco use, Hx remote E. Coli bacteremia who presents to the [facility] ED on 11/10/21 with history of R breast pain, redness, increased warmth, inferiomedially to the aeriola with small portions scabbed over with purulent drainage with fever on day of presentation prompting ED evaluation. She denies any prior breast abscess or cellulitis. She notes that the right breast is significantly tender with any palpation, 10 out of 10 in severity. Work-up in the ED included T98.2, heart rate 115, BP 170/61, respiratory rate 18, 96% on room, CBC with WC 17.3, hemoglobin 13.6, platelet 260 with left shift, unremarkable coags, CMP with sodium 135, glucose 108, lactic acid 1.1 otherwise not marked appearing. ED physician did a bedside ultrasound and did not see any specific abscesses, appears as if it is already drained, took samples with wound culture and requested also addition of MRSA wound to this which was performed. In the ED patient ministered clindamycin, vancomycin, oxycodone 10 mg p.o. x1 and Zofran. [facility] Medical History Abnormal LFTs Bacteremia due to Escherichia coli Bronchitis COPD (chronic obstructive pulmonary disease) Hepatic steatosis Hepatosplenomegaly Hypokalemia Hyponatremia Moderate pulmonary arterial systolic hypertension Morbid obesity Nocturnal hypoxemia Ovarian cyst Pyelonephritis Right adrenal mass Severe sepsis Sleep-disordered breathing Tobacco dependence Home Medications ibuprofen 800 mg PO Q4H PRN PRN 12/10/18 [History Last Taken 12/09/18] albuterol sulfate 1 - 2 puff INHALATION Q4H PRN PRN #1 inhaler 12/13/18 [Rx Last Taken Unknown] ondansetron 4 mg PO Q8H PRN PRN #10 tab 04/02/21 [Rx Last Taken Unknown] Allergy/AdvReac Type Severity Reaction Status Date / Time Penicillins Allergy Swelling Verified 04/01/21 16:59 morphine AdvReac Other Verified 04/01/21 16:59 Family History Mother Heart disease Grandmother Heart disease other (Father passed when she was young, drowned in a flood 1969.) Surgical History (Updated 11/10/21 @ 23:[address] Luana Muhammad MD) H/O section S/p bilateral carpal tunnel release Social History (Updated 11/10/21 @ 23:[address] Luana Muhammad MD) household members: none Smoking Status: Former smoker Tobacco: How many years used: 35 Electronic Cigarette Use: without nicotine how long ago did patient quit smoking: Smoked teen, quit 2019, 3 ppd until quit. second hand exposure: Yes alcohol intake: never substance use type: does not use ROS ROS Narrative Admission Review of Systems: CONSTITUTIONAL: No weight loss, + fever, chills, weakness or fatigue. HEENT: Eyes: No visual loss, blurred vision, double vision or yellow sclerae. Ears, Nose, Throat: No hearing loss, sneezing, congestion, runny nose or sore throat. SKIN: + R breast redness, abscess with drainage. CARDIOVASCULAR: No chest pain, chest pressure or chest discomfort, palpitations, edema, orthopnea, syncopal events. RESPIRATORY: + Chronically short of breath with ambulation, No cough or sputum, wheezing, hemoptysis. GASTROINTESTINAL: No anorexia, nausea, vomiting or diarrhea, abdominal pain, melena, BRBPR. GENITOURINARY: No dysuria, frequency, urgency or retention. NEUROLOGICAL: No headache, dizziness, syncope, paralysis, ataxia, numbness or tingling in the extremities, focal weakness, change in bowel or bladder control, seizure. MUSCULOSKELETAL: + muscle, back pain, joint pain or stiffness. HEMATOLOGIC: No anemia, bleeding or bruising. LYMPHATICS: No enlarged nodes. No history of splenectomy. PSYCHIATRIC: No history of depression or anxiety. ENDOCRINOLOGIC: No reports of sweating, cold or heat intolerance. No polyuria or polydipsia. ALLERGIES: No history of asthma, hives, eczema or rhinitis. Vital Signs Vital Signs Vital Signs: 11/10/21 19:49 11/10/21 19:50 11/10/21 22:12 Temperature 98.2 F 98.2 F Temperature Source Temporal Temporal Pulse Rate 115 H 115 H 107 H Respiratory Rate 18 18 20 H Blood Pressure 178/61 H 178/61 H 144/55 H Blood Pressure Mean 100 100 84 Pulse Ox 96 96 95 Oxygen Delivery Method Room Air Room Air Room Air Weight Weight: 330 lb Body Mass Index (BMI) 58.4 Physical Exam Narrative Physical Examination: General: Awake, alert, oriented x 3 and cooperative, seated upright in the ED bedside chair, fatigued appearing Skin: Normal color, normal turgor, no icterus, no cyanosis except fold intertrigo noted underneath the left breast and abdominal folds, right breast with inferiomedial area of erythema, draining abscess with mildly purulent appearing fluid, extremely tender to palpation, no obvious fluctuant significant hard regions. HEENT: AT/NC, EOMI, PERRLA, mildly dry MM, no carotid bruits or JVD noted however, thickened neck makes evaluation difficult. Lungs: Diminished, greater bases, moderate effort no rales, ronchi or wheezing. Heart: Currently tachycardic with regular rhythm; no gallop, rub audible. Abdomen: Soft, morbidly obese, NTTP, ND, distant normal BS, no obvious evidence of HSM; however, habitus makes evaluation difficult. Extremities: No cyanosis, clubbing, or edema. Neurological: Patient awake, alert, oriented as noted, cognitive function intact; pupils equally reactive to light and accommodation, cranial nerves II-XII grossly normal, moving all 4 extremities, no focal deficits, strength moderately global decreased secondary to acute presentation and pain Psychiatric: Affect appears fatigued, uncomfortable, no acute evidence of depressive or anxiety feelings. Results Lab / Micro Data Result Diagrams: 11/10/21 21:50 11/10/21 21:50 Labs: Laboratory Results - last 24 hr 11/10/21 21:50: WBC 17.3 H, RBC 4.68, Hgb 13.6, Hct 41.3, MCV 88.2, MCH 29.1, MCHC 32.9, RDW Std Deviation 43.2, RDW Coeff of Yousif 13.3, Plt Count 260, MPV 10.4, Immature Gran % (Auto) 0.600, Neut % (Auto) 75.4 H, Lymph % (Auto) 15.7 L, [place] % (Auto) 6.7, Eos % (Auto) 1.3, Baso % (Auto) 0.3, Absolute Neuts (auto) 13.1 H, Absolute Lymphs (auto) 2.71, Nucleated RBC % 0 11/10/21 21:50: PT 13.7, INR 1.1, APTT 27.9 11/10/21 21:50: Sodium 135 L, Potassium 3.8, Chloride 102, Carbon Dioxide 26.0, Anion Gap 7, BUN 11, Creatinine 0.90, Estim Creat Clear Calc 59.11, Est GFR (MDRD) Af Amer 84, Est GFR (MDRD) Non-Af 69, BUN/Creatinine Ratio 12.2, Glucose 108 H, Calcium 9.0, Total Bilirubin 0.40, AST 20, ALT 36, Alkaline Phosphatase 106, Total Protein 8.3 H, Albumin 3.2, Globulin 5.1 H, Albumin/Globulin Ratio 0.6 L 11/10/21 21:50: Lactic Acid 1.1 Assessment & Plan Assessment/Plan (1) Abscess of breast, right: (2) Mastitis: PLAN: The patient is a 56 y/o F w/ PMHx: RENA, Morbid Obesity, COPD, Tobacco use, Hx remote E. Coli bacteremia who presents to the [facility] ED on 11/10/21 with history of R breast pain, redness, increased warmth, inferiomedially to the aeriola with small portions scabbed over with purulent drainage with fever on day of presentation prompting ED evaluation. #1. Right breast abscess and cellulitis/mastitis, DOES NOT MEET SOFA SCORE for sepsis of note: Will admit to medical surgical floor, will obtain formal breast ultrasound to be cautious, maintain on IV Vanco and Levaquin (given swelling w/ PCN) with de-escalation once wound culture and wound MRSA is resulted, plan repeat CBC in AM, continue chest elevation, monitor erythema outline with VS checks, as needed pain regimen as well as as needed antiemetic regimen. If concern for abscess on ultrasound or worsening appearance may consider general surgery consultation. Will obtain hemoglobin A1c to be cautious given infection. #2. Elevated BP without HTN history: Notably elevated BP upon presentation, no history of hypertension, potentially pain related however from review of records has been elevated in the past, will need to add oral regimen if appropriate, as needed IV hydralazine in interim. #3. Chronic COPD: Patient is not on any home inhalers, PRN albuterol, HOB, IS parameters. #4. Morbid Obesity: Weight loss and lifestyle changes encouraged, may consider nutrition consultation. #5. Former tobacco use: Encourage continued tobacco cessation. #6. RENA: CPAP nightly. #7. DVT prophylaxis: SCDs, Lovenox. Charges/Coding Visit Charges Inpatient E&M: 16058 Init Hosp L3
[2021-11-10 23:41] VITALS: BP 143/73; PULSE 121; RESP 22; TEMP 37.1; O2SAT 93
[2021-11-11] VITALS (8 sets, daily range): BP systolic 121–129; BP diastolic 56–70; PULSE 75–100; RESP 14–19; TEMP 36.4–37.2; O2SAT 93–97; BMI 58.1
--- NOTE | 2021-11-11 01:10 | PCM.RX.CS ---
Consult Pharmacy has been consulted to manage selected antiobiotic: Vancomycin Type of Consult: New start Labs: Sodium 135 mmol/L (136-145) L 11/10/21 21:50 Potassium 3.8 mmol/L (3.5-5.1) 11/10/21 21:50 Chloride 102 mmol/L (98-107) 11/10/21 21:50 Carbon Dioxide 26.0 mmol/L (21.0-32.0) 11/10/21 21:50 Anion Gap 7 (5-15) 11/10/21 21:50 BUN 11 mg/dL (7-18) 11/10/21 21:50 Creatinine 0.90 mg/dL (0.55-1.02) 11/10/21 21:50 Est GFR (MDRD) Af Amer 84 mL/min (>60) 11/10/21 21:50 Est GFR (MDRD) Non-Af 69 mL/min (>60) 11/10/21 21:50 BUN/Creatinine Ratio 12.2 RATIO (10-20) 11/10/21 21:50 Glucose 108 mg/dL (74-106) H 11/10/21 21:50 Weight used for dosin.8 kg Estimated Creatinine Clearance: 102.6 Goal Trough: 15-20 mcg/mL Pharmacy Plan for Drug Dosing: Pharmacy Service will continue to monitor and adjust dosing as required. Medications Vancomycin HCl 1,500 mg/ (Sodium Chloride) 530 mls @ 250 mls/hr IV Q8H JOSÉ Discontinued Medications Vancomycin HCl 2,000 mg/ (Sodium Chloride) 540 mls @ 250 mls/hr IV X1 ONE Stop: 11/10/21 23:57 Last Admin: 11/11/21 00:33 Dose: Infused Documented by: Follow-Up Labs: Trough Vancomycin Labs to be done on [date and time ordered]: 11/11 @ 5358
[2021-11-11] MEDS: Clindamycin 600 MG/50 ML BAG 100 MG IV (01:13)
[2021-11-11] MEDS: 0.9% Normal Saline 1,000 ML 100 ML IV ×2 (01:14→11:13)
[2021-11-11] MEDS: oxyCODONE 5 MG Tablet PO ×5 (01:26→19:37)
--- NOTE | 2021-11-11 05:30 | CPS ---
Observed pt.'s breathing while she was on CPAP. I noticed pt. was breathing 5-7 times per minute, with tidal volumes below 100. I adjusted her to BiPaP to help support her breathing and to increase pt.'s tidal volume. Pt. responded very well to these changes. Called Dr. Muhammad and okayed these changes.
[2021-11-11] MEDS: 0.9% Saline Lock 10 ML Syringe IV ×2 (05:44→05:54)
[2021-11-11 05:45] LABS: Absolute Lymphocyte Count 2.99 X10^3/uL (0.83-4.51); Absolute Neutrophil Count 10.7 X10^3/uL (2.0-7.7); Basophil# 0.06 X10^3/uL; Basophil% 0.4 % (0-1); Eosinophil# 0.25 X10^3/uL; Eosinophils% 1.7 % (0-5); Hematocrit 39.7 % (37-47); Hemoglobin 12.7 g/dL (12.0-15.0); Lymphocyte # 2.99 X10^3/ul (0.83-4.51); Lymphocyte % 19.8 % (19-41); Mean Corpuscular Hgb 28.7 pg (27.0-32.0); Mean Corpuscular Volume 89.8 fL (81-99); Mean Platelet Vol. 10.7 fl (6.2-12.0); Monocyte# 1.01 X10^3/uL; Monocyte% 6.7 % (0-10); NRBC Flagged by Analyzer 0 % (0-5); Neutrophil # 10.72 X10^3/uL (2.7-7.7); Neutrophil % 70.8 % (47-70); Platelet Count 234 K/mm3 (150-450); RBC Distribution Width CV 13.4 % (11.6-14.6); RBC Distribution Width SD 44.2 fl (35.1-43.9); Red Blood Count 4.42 M/mm3 (4.2-5.4); White Blood Count 15.1 K/mm3 (4.4-11.0)
[2021-11-11] MEDS: Nystatin Powder 15gm Bottle 1 APPLIC TOPICAL ×2 (05:49→14:40)
[2021-11-11 06:09] LABS: ALB/GLOB Ratio 0.6 RATIO (0.9-2.4); AST(SGOT) 17 U/L (15-37); Alanine Aminotransfer ALT/SGPT 28 U/L (13-56); Albumin, Serum 2.8 g/dL (3.2-5.0); Alkaline Phosphatase 84 U/L (45-117); Anion Gap 7 (5-15); BUN 10 mg/dL (7-18); BUN/Creat Ratio 10.9 RATIO (10-20); Calcium,Total 8.1 mg/dL (8.5-10.1); Chloride 102 mmol/L (98-107); Creatinine, Serum 0.92 mg/dL (0.55-1.02); EST Glomerular Filtration Rate 68 mL/min (>60); Est Glom Filt Rate - Afr Amer 82 mL/min (>60); Estimated Creatinine Clearance 57.83 ml/min; Globulin 4.5 g/dL (2.2-4.2); Glucose 125 mg/dL (74-106); Potassium 3.6 mmol/L (3.5-5.1); Protein, Total 7.3 g/dL (6.4-8.2); Sodium Level 136 mmol/L (136-145)
[2021-11-11 07:03] LABS: Hemoglobin A1c 5.9 % (3.8-5.6)
[2021-11-11] MEDS: Ondansetron 4 MG/2 ML Vial IV ×2 (07:44→19:37)
--- NOTE | 2021-11-11 09:03 | NURSING ---
Pt. off floor for testing.
[2021-11-11] MEDS: Enoxaparin 40 MG/0.4 ML Syringe SC ×2 (09:27→21:55)
[2021-11-11] MEDS: levoFLOXacin IV 750 MG/150 ML BAG 100 MG IV (09:27)
--- NOTE | 2021-11-11 09:28 | PCM.PN.HOSP ---
Documented by User: Angelica Liang INSURANCE ACCOUNT REPRESENTATIVE, INSURANCE ACCOUNT REPRESENTATIVE-C 11/11/21 09:34 Subjective Subjective Patient seen and examined. Reports significant right breast tenderness/pain. States she is having significant drainage from abscess. Denies fever, chills. Denies other symptoms or complaints. Objective Data Objective Data Vital Signs: Vital Signs Temp Pulse Resp BP Pulse Ox 98.1 F 79 18 121/58 H 95 11/11/21 05:59 11/11/21 05:59 11/11/21 05:59 11/11/21 05:59 11/11/21 05:59 Oxygen Delivery Method Room Air Weight: 328 lb 0.765 oz Body Mass Index (BMI) 58.1 Intake & Output: Intake and Output for Last 24 Hours 11/09/21 11/10/21 11/11/21 23:59 23:59 23:59 Intake Total 1420 / 1420 Balance 1420 / 1420 Lab / Micro Data Result Diagrams: 11/11/21 05:10 11/11/21 05:10 Labs: Laboratory Results - last 24 hr 11/10/21 21:50: WBC 17.3 H, RBC 4.68, Hgb 13.6, Hct 41.3, MCV 88.2, MCH 29.1, MCHC 32.9, RDW Std Deviation 43.2, RDW Coeff of Yousif 13.3, Plt Count 260, MPV 10.4, Immature Gran % (Auto) 0.600, Neut % (Auto) 75.4 H, Lymph % (Auto) 15.7 L, Otero % (Auto) 6.7, Eos % (Auto) 1.3, Baso % (Auto) 0.3, Absolute Neuts (auto) 13.1 H, Absolute Lymphs (auto) 2.71, Nucleated RBC % 0 11/10/21 21:50: PT 13.7, INR 1.1, APTT 27.9 11/10/21 21:50: Sodium 135 L, Potassium 3.8, Chloride 102, Carbon Dioxide 26.0, Anion Gap 7, BUN 11, Creatinine 0.90, Estim Creat Clear Calc 59.11, Est GFR (MDRD) Af Amer 84, Est GFR (MDRD) Non-Af 69, BUN/Creatinine Ratio 12.2, Glucose 108 H, Calcium 9.0, Total Bilirubin 0.40, AST 20, ALT 36, Alkaline Phosphatase 106, Total Protein 8.3 H, Albumin 3.2, Globulin 5.1 H, Albumin/Globulin Ratio 0.6 L 11/10/21 21:50: Lactic Acid 1.1 11/11/21 05:10: WBC 15.1 H, RBC 4.42, Hgb 12.7, Hct 39.7, MCV 89.8, MCH 28.7, MCHC 32.0, RDW Std Deviation 44.2 H, RDW Coeff of Yousif 13.4, Plt Count 234, MPV 10.7, Immature Gran % (Auto) 0.600, Neut % (Auto) 70.8 H, Lymph % (Auto) 19.8, Otero % (Auto) 6.7, Eos % (Auto) 1.7, Baso % (Auto) 0.4, Absolute Neuts (auto) 10.7 H, Absolute Lymphs (auto) 2.99, Nucleated RBC % 0 11/11/21 05:10: Sodium 136, Potassium 3.6, Chloride 102, Carbon Dioxide 27.0, Anion Gap 7, BUN 10, Creatinine 0.92, Estim Creat Clear Calc 57.83, Est GFR (MDRD) Af Amer 82, Est GFR (MDRD) Non-Af 68, BUN/Creatinine Ratio 10.9, Glucose 125 H, Calcium 8.1 L, Total Bilirubin 0.70, AST 17, ALT 28, Alkaline Phosphatase 84, Total Protein 7.3, Albumin 2.8 L, Globulin 4.5 H, Albumin/Globulin Ratio 0.6 L 11/11/21 05:10: Hemoglobin A1c 5.9 H Physical Exam Const alert, oriented x3 and no apparent distress Orientation / Consciousness: awake, oriented to person, oriented to place and oriented to time Nutritional Appearance: obese HEENT normocephalic and moist oral mucous membranes Eyes PERRL, EOMs intact bilaterally and conjunctivae normal Neck no lymphadenopathy Resp normal respiratory effort and clear to auscultation bilaterally Cardio regular rate, regular rhythm and no murmurs Peripheral Pulses: pulses 2+ throughout GI normal to inspection, nondistended, normoactive bowel sounds, non-tender and non-distended Extremity normal to inspection Skin no rashes or lesions noted Skin Narrative: Right breast cellulitis with abscess. Purulent drainage. Lesions: no lesions Rashes: no rashes Trauma: no lacerations or abrasions Neuro CN's II-XII intact bilaterally, no focal motor deficits, no sensory deficits noted and deep tendon reflexes 2+ bilaterally Psych mental status grossly normal and affect normal Assessment & Plan Assessment/Plan (1) Abscess of breast, right: PLAN: 1. Right breast abscess with cellulitis/mastitis-blood and wound cultures pending. Wound RN consulted. Continue IV Vanco and IV Levaquin. As needed pain regimen. Nystatin for under breasts. Breast ultrasound pending to evaluate abscess. Leukocytosis improving. Afebrile. 2. Elevated blood pressure without history of hypertension-suspect secondary to acute presentation. Now improved. As needed hydralazine. 3. Chronic COPD-no exacerbation. As needed albuterol aerosol. 4. RENA-on CPAP nightly. 5. Former tobacco use-encouraged cessation. 6. Morbid obesity-diet and lifestyle modifications encouraged. DVT prophylaxis-Lovenox, SCDs This patient was seen by LILI Cristina under the supervision of Dr. Naranjo. Time spent examining patient, reviewing data and subsequent management of care: 13 minutes Documented by User: Dr. Gabi Naranjo MD 11/11/21 13:15 Objective Data Lab / Micro Data Result Diagrams: 11/11/21 05:10 11/11/21 05:10 Charges/Coding Addendum Addendum: Patient seen by Angelica PEARSON under my supervision Patient seen and examined. She still complains of pain and swelling of her right breast. She says she has significant discharge from the right breast but that is improving. She denies any fever or chills and review of systems Is otherwise negative. O/E: Const alert, oriented x3 and no apparent distress General Appearance: cooperative HEENT normocephalic, head/scalp atraumatic, hearing grossly normal bilaterally and moist oral mucous membranes Eyes PERRL, EOMs intact bilaterally and conjunctivae normal Neck no lymphadenopathy, supple and no JVD Resp normal respiratory effort and clear to auscultation bilaterally Cardio regular rate, regular rhythm, S1 normal heart sound, S2 normal heart sound and no murmurs GI normal to inspection, nondistended, normoactive bowel sounds and soft to palpation GI Narrative: abdominal dressing over surgical site Extremity normal to inspection, full ROM and no clubbing, cyanosis or edema Skin right breast is indurated, erythematous and warm to touch; has superficial ulceration in the infra areolar area, which is discharging pus Neuro oriented x3, CN's II-XII intact bilaterally and moves all extremities Sensorium / Orientation: awake and alert Psych affect normal Assessment and plan #Cellulitis and abscess of the right breast on IV vancomycin and levaquin breast USG pending wound care consulted oral and IV pain meds #Elevated BP no previous diagnosis of hypertension likely due to pain from abscess and cellulitis of right breast has improved. IV hydralazine prn #COPD: not in exacerbation. Breathing treatment with bronchodilators #RENA: on CPAP qhs DVT prophylaxis: lovenox Rest as per Angelica Liang INSURANCE ACCOUNT REPRESENTATIVE-C's note, which I have reviewed and endorsed. Total time I pent on the care of hte patient today: 20mins, with Angelica Liang spending 13 mins, making a total of 33 mins. Visit Charges Inpatient E&M: 47442 Subs Hosp L2
--- NOTE | 2021-11-11 10:10 | CASEMGMT ---
MITCHEL MOTTA assessment: Face to Face with patient for initial transition planning/care coordination assessment. MITCHEL MOTTA introduced self and role at [facility], pt voices understanding and consents to assessment. Pt is sitting in chair in no distress on room air. Pt is A/Ox4 and answers all questions appropriately. Care providers, pharmacy, and demographics verified/updated. Presentation: Pt c/o abscess to R breast x2 days Admitting dx: Right breast mastitis, abscess PCP: [facility] Specialists: yaw Bee [facility]acy[facility] Insurance: MMO Prescription Benefit: MMO Living Will/HPOA: Pt states does not have LW/HPOA but would like to complete at this time. Juan SW aware, voices understanding. LNOK: Tierra Newman, daughter Living Arrangements: Pt lives alone in apt with elevator and states no concerns at home. Pt is independent with ADL's. Transportation: Pt drives self and states no transportation concerns. DME/HHC: Pt has a cpap and prn home oxygen thru [employer] and states no further need for DME. Pt states no hx of HHC or SNF in the past. Pt states no concerns with going home at time of discharge. 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 Pt states does not smoke cigarettes but does occasionally drink ETOH. Pt voices no further concerns/needs. CM to follow for any further discharge planning/needs. Advised pt to ask for CM if any further questions/concerns/needs arise, voices understanding. Pt Goal: Home Plan: [place] MITCHEL MOTTA
--- NOTE | 2021-11-11 10:10 | CASEMGMT ---
MITCHEL MOTTA assessment: Face to Face with patient for initial transition planning/care coordination assessment. MITCHEL MOTTA introduced self and role at [facility], pt voices understanding and consents to assessment. Pt is sitting in chair in no distress on room air. Pt is A/Ox4 and answers all questions appropriately. Care providers, pharmacy, and demographics verified/updated. Presentation: Pt c/o abscess to R breast x2 days Admitting dx: Right breast mastitis, abscess PCP: [facility] Special[facility]: yaw Bee [facility]: [facility] Insurance: MMO Prescription Benefit: MMO Living Will/HPOA: Pt states does not have LW/HPOA but would like to complete at this time. Juan SW aware, voices understanding. LNOK: Tierra Newman, daughter Living Arrangements: Pt lives alone in apt with elevator and states no concerns at home. Pt is independent with ADL's. Transportation: Pt drives self and states no transportation concerns. DME/HHC: Pt has a cpap and prn home oxygen thru [employer] and states no further need for DME. Pt states no hx of HHC or SNF in the past. Pt states no concerns with going home at time of discharge. Pt is retired. Pt states does not smoke cigarettes but does occasionally drink ETOH. Pt voices no further concerns/needs. CM to follow for any further discharge planning/needs. Advised pt to ask for CM if any further questions/concerns/needs arise, voices understanding. Pt Goal: Home Plan: Home [place] MITCHEL MOTTA
[2021-11-11 12:12] LABS: M R Staph aureus DNA By PCR Negative (Negative); Probe Check PASS; Specimen Processing Control PASS; Staph aureus DNA By PCR NEGATIVE (Negative)
--- NOTE | 2021-11-11 15:03 | WOUNDNOTE ---
wound photo: right breast
--- NOTE | 2021-11-11 15:31 | CASEMGMT ---
SW completed a Healthcare Power of [employer] and a Healthcare Living Will with patient. Copies were made and given to patient along with originals. A copy of each was also placed in patient's chart. Mima [place]
--- NOTE | 2021-11-11 22:56 | PCM.RX.CS ---
Consult Pharmacy has been consulted to manage selected antiobiotic: Vancomycin Type of Consult: Follow-up Labs: Sodium 136 mmol/L (136-145) 11/11/21 05:10 Potassium 3.6 mmol/L (3.5-5.1) 11/11/21 05:10 Chloride 102 mmol/L (98-107) 11/11/21 05:10 Carbon Dioxide 27.0 mmol/L (21.0-32.0) 11/11/21 05:10 Anion Gap 7 (5-15) 11/11/21 05:10 BUN 10 mg/dL (7-18) 11/11/21 05:10 Creatinine 0.92 mg/dL (0.55-1.02) 11/11/21 05:10 Est GFR (MDRD) Af Amer 82 mL/min (>60) 11/11/21 05:10 Est GFR (MDRD) Non-Af 68 mL/min (>60) 11/11/21 05:10 BUN/Creatinine Ratio 10.9 RATIO (10-20) 11/11/21 05:10 Glucose 125 mg/dL (74-106) H 11/11/21 05:10 Vancomycin Trough 18.0 ug/mL (5.0-15.0) H 11/11/21 21:40 Microbiology: Microbiology 11/10/21 21:35 Wound Abcess - Breast Gram Stain - Final 11/10/21 21:35 Wound Abcess - Breast Wound Culture - Preliminary No growth-Final to follow Goal Trough: 15-20 mcg/mL Pharmacy Plan for Drug Dosing: Pharmacy Service will continue to monitor and adjust dosing as required. TROUGH 18 AT 7 HRS. NO CHANGES, RECHECK TROUGH IN 2 DAYS Follow-Up Labs: Trough Vancomycin Labs to be done on [date and time ordered]: 11/13 @ 1796
--- NOTE | 2021-11-11 23:03 | US_ITS ---
STUDY: ULTRASOUND BREAST - RIGHT REASON FOR EXAM: Female, 56 years old. Possible right breast abscess versus cellulitis. TECHNIQUE: Axial and longitudinal images of the RIGHT breast were performed with a high resolution ultrasound transducer. # OF IMAGES: 53 COMPARISON: None. FINDINGS: RIGHT Breast: Dense fibroglandular tissue. There is erythema in the periareolar region. There is a 3.3 cm x 4.4 cm x 1 cm fluid collection just deep to the subcutaneous tissue at the 4 o''clock position of the breast at 5 cm from the nipple. US/Breast Limited Unilateral IMPRESSION: Erythema in the periareolar region. 3.3 cm x 4.4 cm x 1 cm ill-defined fluid collection just deep to the subcutaneous tissues. No jia abscess is seen. ASSESSMENT CATEGORY: BIRADS Category 2: Benign. A letter regarding these results will be sent to the patient by the facility within 30 days. Electronically Signed: Jason Dunn MD at 14:48 EDT ,
[2021-11-12 01:48] VITALS: BP 133/69; PULSE 76; RESP 16; TEMP 36.6; O2SAT 97
[2021-11-12 02:10] VITALS: RESP 12; O2SAT 94
[2021-11-12] MEDS: oxyCODONE 5 MG Tablet PO ×4 (03:36→19:50)
[2021-11-12 06:05] LABS: Absolute Lymphocyte Count 2.15 X10^3/uL (0.83-4.51); Absolute Neutrophil Count 7.4 X10^3/uL (2.0-7.7); Basophil# 0.05 X10^3/uL; Basophil% 0.5 % (0-1); Eosinophil# 0.34 X10^3/uL; Eosinophils% 3.2 % (0-5); Hemoglobin 12.1 g/dL (12.0-15.0); Lymphocyte # 2.15 X10^3/ul (0.83-4.51); Lymphocyte % 20.2 % (19-41); Mean Corp Hgb Conc 31.8 g/dL (32-36); Mean Corpuscular Volume 91.1 fL (81-99); Mean Platelet Vol. 10.7 fl (6.2-12.0); Monocyte# 0.66 X10^3/uL; Monocyte% 6.2 % (0-10); NRBC Flagged by Analyzer 0 % (0-5); Neutrophil % 69.3 % (47-70); Platelet Count 225 K/mm3 (150-450); RBC Distribution Width CV 13.5 % (11.6-14.6); RBC Distribution Width SD 45.4 fl (35.1-43.9); Red Blood Count 4.17 M/mm3 (4.2-5.4); White Blood Count 10.7 K/mm3 (4.4-11.0)
[2021-11-12 06:14] VITALS: BP 124/67; PULSE 78; RESP 18; TEMP 36.4; O2SAT 94
[2021-11-12 06:54] LABS: Anion Gap 6 (5-15); BUN 11 mg/dL (7-18); Calcium,Total 8.4 mg/dL (8.5-10.1); Chloride 103 mmol/L (98-107); Creatinine, Serum 0.92 mg/dL (0.55-1.02); EST Glomerular Filtration Rate 68 mL/min (>60); Est Glom Filt Rate - Afr Amer 82 mL/min (>60); Estimated Creatinine Clearance 57.83 ml/min; Glucose 128 mg/dL (74-106); Potassium 3.9 mmol/L (3.5-5.1); Sodium Level 137 mmol/L (136-145)
[2021-11-12] MEDS: Ondansetron 4 MG/2 ML Vial IV ×2 (08:38→19:51)
[2021-11-12] MEDS: 0.9% Saline Lock 10 ML Syringe IV ×3 (08:39→19:51)
--- NOTE | 2021-11-12 09:38 | PN.HOSP_ITS ---
Documented by User: Angelica Liang NP, MINERAL TECHNOLOGIST-C 11/12/21 10:04 Subjective Subjective Patient seen and examined. Reports continued significant drainage from right breast. Denies fever, chills. Reports improvement in redness. Continues to have pain, worse with dressing changes and movement. Objective Data Objective Data Vital Signs: Vital Signs Temp Pulse Resp BP Pulse Ox 97.6 F L 78 18 124/67 H 94 11/12/21 06:14 11/12/21 06:14 11/12/21 06:14 11/12/21 06:14 11/12/21 06:14 Oxygen Flow Rate (L/min) 2 Oxygen Delivery Method Room Air Weight: 328 lb 4.293 oz Body Mass Index (BMI) 58.1 Intake & Output: Intake and Output for Last 24 Hours 11/10/21 11/11/21 11/12/21 23:59 23:59 23:59 Intake Total 4098.33 / 4098.33 1560 / 1560 Balance 4098.33 / 4098.33 1560 / 1560 Lab / Micro Data Result Diagrams: 11/12/21 05:13 11/12/21 05:13 Labs: Laboratory Results - last 24 hr 11/11/21 09:40: S.aureus Protein A PCR NEGATIVE, MRSA (PCR) Negative 11/11/21 21:40: Vancomycin Trough 18.0 H 11/12/21 05:13: WBC 10.7, RBC 4.17 L, Hgb 12.1, Hct 38.0, MCV 91.1, MCH 29.0, MCHC 31.8 L, RDW Std Deviation 45.4 H, RDW Coeff of Yousif 13.5, Plt Count 225, MPV 10.7, Immature Gran % (Auto) 0.600, Neut % (Auto) 69.3, Lymph % (Auto) 20.2, Beaver % (Auto) 6.2, Eos % (Auto) 3.2, Baso % (Auto) 0.5, Absolute Neuts (auto) 7.4, Absolute Lymphs (auto) 2.15, Nucleated RBC % 0 11/12/21 05:13: Sodium 137, Potassium 3.9, Chloride 103, Carbon Dioxide 28.0, Anion Gap 6, BUN 11, Creatinine 0.92, Estim Creat Clear Calc 57.83, Est GFR (MDRD) Af Amer 82, Est GFR (MDRD) Non-Af 68, BUN/Creatinine Ratio 12.0, Glucose 128 H, Calcium 8.4 L Micro: Microbiology 11/10/21 21:35 Wound Abcess - Breast Gram Stain - Final 11/10/21 21:35 Wound Abcess - Breast Wound Culture - Preliminary No growth-Final to follow Radiography Diagnostic Testing: Radiology Impression Breast Ultrasound 11/11/21 23:03 IMPRESSION: Erythema in the periareolar region. 3.3 cm x 4.4 cm x 1 cm ill-defined fluid collection just deep to the subcutaneous tissues. No jia abscess is seen. ASSESSMENT CATEGORY: BIRADS Category 2: Benign. A letter regarding these results will be sent to the patient by the facility within 30 days. Electronically Signed: Jason Dunn MD at 14:48 EDT , Physical Exam Const alert, oriented x3 and no apparent distress Orientation / Consciousness: awake, oriented to person, oriented to place and oriented to time HEENT normocephalic and moist oral mucous membranes Eyes PERRL, EOMs intact bilaterally and conjunctivae normal Neck no lymphadenopathy Resp normal respiratory effort and clear to auscultation bilaterally Cardio regular rate, regular rhythm and no murmurs Peripheral Pulses: pulses 2+ throughout GI normal to inspection, nondistended, normoactive bowel sounds, non-tender and non -distended Extremity normal to inspection Skin no rashes or lesions noted Skin Narrative: Right breast cellulitis with abscess, draining purulent fluid. Overall erythema improving. Notable area of fluctuance surrounding abscess. Lesions: no lesions Rashes: no rashes Trauma: no lacerations or abrasions Neuro CN's II-XII intact bilaterally, no focal motor deficits, no sensory deficits noted and deep tendon reflexes 2+ bilaterally Psych mental status grossly normal and affect normal Assessment & Plan Assessment/Plan (1) Abscess of breast, right: PLAN: 1. Right breast abscess with cellulitis/mastitis-wound culture shows no growth. MRSA, MSSA PCR negative. Blood cultures pending. Wound RN consulted. Continue IV Vanco and IV Levaquin. As needed pain regimen. Nystatin for under breasts. Breast ultrasound demonstrates a 3.3 cm x 4.4 cm fluid collection just deep to the subcutaneous tissue at the 4 o'clock position of the breast at 5 cm from the nipple. Leukocytosis resolved. Afebrile. Will consult general surgery given fluid collection on ultrasound as well as area of fluctuance on exam with ongoing significant drainage. 2. Elevated blood pressure without history of hypertension-suspect secondary to acute presentation. Now improved. As needed hydralazine. 3. Chronic COPD-no exacerbation. As needed albuterol aerosol. 4. RENA-on CPAP nightly. 5. Former tobacco use-encouraged cessation. 6. Morbid obesity-diet and lifestyle modifications encouraged. 7. Prediabetes-hemoglobin A1c 5.9%. Encouraged dietary modifications. DVT prophylaxis-Lovenox, SCDs This patient was seen by LILI Cristina under the supervision of Dr. Naranjo. Time spent examining patient, reviewing data and subsequent management of care: 12 minutes Documented by User: Dr. Gabi Naranjo MD 11/12/21 16:39 Objective Data Lab / Micro Data Result Diagrams: 11/12/21 05:13 11/12/21 05:13 Charges/Coding Addendum Addendum: Patient seen by Angelica PEARSON under my supervision Patient seen and examined. Her right breast is still draining pus from the a bscess site. She says the pain is improving. She denies any fever or chills, nausea or vomiting. Review of systems otherwise negative. O/E: Const alert, oriented x3 and no apparent distress General Appearance: cooperative HEENT normocephalic, head/scalp atraumatic, hearing grossly normal bilaterally and moist oral mucous membranes Eyes PERRL, EOMs intact bilaterally and conjunctivae normal Neck no lymphadenopathy, supple and no JVD Resp normal respiratory effort and clear to auscultation bilaterally Cardio regular rate, regular rhythm, S1 normal heart sound, S2 normal heart sound and no murmurs GI normal to inspection, nondistended, normoactive bowel sounds and soft to palpation Extremity normal to inspection, full ROM and no clubbing, cyanosis or edema Skin still has drainage with superficial ulceration beneath the right nipple, with diffuse erythema and swelling of right breast. This does appear to be improving slightly oriented x3, CN's II-XII intact bilaterally and moves all extremities Sensorium / Orientation: awake and alert Psych affect normal #Assessment and plan #Cellulitis with abscess of the right breast * Still having increased drainage from the site. On IV vancomycin and Levaquin. * Right breast abscess showed * Wound care on board. General surgery consulted today and recommends I&D versus insertion of percutaneous drain by radiology. * Wound cultures were negative. * #Elevated BP * This is improving. Does not have a known diagnosis of hypertension. * IV hydralazine as needed * #COPD: On breathing treatments bronchodilators. #RENA: On CPAP nightly DVT prophylaxis: Lovenox Rest as per Angelica Liang MINERAL TECHNOLOGIST-C's note, which I have reviewed and endorsed. Total time I pent on the care of the patient today: 18mins, with Angelica Liang spending 12 mins, making a total of 30 mins. Visit Charges Inpatient E&M: 52617 Subs Hosp L3
[2021-11-12] MEDS: levoFLOXacin IV 750 MG/150 ML BAG 100 MG IV (10:21)
[2021-11-12] MEDS: Enoxaparin 40 MG/0.4 ML Syringe SC ×2 (10:25→22:08)
--- NOTE | 2021-11-12 10:54 | CON.PCM.SX_ITS ---
Assessment & Plan Assessment/Plan (1) Abscess of breast, right: PLAN: Continue antibiotics as you are doing. I have given patient options of the following - operative I&D of right breast abscess (which would leave an open wound requiring daily packing changes to heal by secondary intention) versus percutaneous drainage and catheter drain placement via ultrasound guidance. Patient chooses latter. I have told her that the interventional radiologist is not available until Sunday, patient states that she will wait for this. I have recommended heating pad to the area. Continue present therapy HPI Consult Data Date of Consult: 11/12/21 HPI Narrative HPI Narrative: REBECCA MARIN, is a 56 F who presents with right breast cellulitis and abscess. I was consulted by LILI Cristina, a hospitalist at [facility]. Patient has noted drainage since - which is 2 days prior to presentation. She was admitted to the hospital on evening for the above. She underwent ultrasound of the right breast on Sunday (yesterday) with findings of 4 x 3 cm fluid collection at the 4:00 position 5 cm from nipple. She notes much improved pain in the area since starting antibiotics. However, the erythema has developed beyond the marked areas and patient does still have continued pain in the area. She denies TOB use or diabetes. She denies previous breast infections [facility] Medical History (Updated 11/11/21 @ 00:27 by Muna Ritter) Abnormal LFTs Bacteremia due to Escherichia coli Bronchitis Chronic pain COPD (chronic obstructive pulmonary disease) CPAP (continuous positive airway pressure) dependence Former smoker Hepatic steatosis Hepatosplenomegaly Hypokalemia Hyponatremia Migraines Moderate pulmonary arterial systolic hypertension Morbid obesity Nocturnal hypoxemia Ovarian cyst Pyelonephritis Right adrenal mass Severe sepsis Sleep apnea Sleep-disordered breathing Tobacco dependence Home Medications ibuprofen 800 mg PO Q4H PRN PRN 12/10/18 [History Last Taken 11/10/21 08:00] Allergy/AdvReac Type Severity Reaction Status Date / Time Penicillins Allergy Swelling Verified 04/01/21 16:59 morphine AdvReac Other Verified 04/01/21 16:59 Family History Mother Heart disease Grandmother Heart disease Family History other Surgical History (Updated 11/10/21 @ 23:[address] Luana Muhammad MD) H/O section S/p bilateral carpal tunnel release Social History (Updated 11/10/21 @ 23:[address] Luana Muhammad MD) household members: none Smoking Status: Former smoker Tobacco: How many years used: 35 Electronic Cigarette Use: without nicotine how long ago did patient quit smoking: Smoked teen, quit 2019, 3 ppd until quit. second hand exposure: Yes alcohol intake: never substance use type: does not use ROS Constitutional Constitutional: Denies weight loss ENT HEENT: Denies sinus pain Cardiovascular Cardiovascular: Denies chest pain Respiratory/Chest Respiratory/Chest: Denies productive cough Gastrointestinal Gastrointestinal: Denies coffee ground emesis, nausea or vomiting Genitourinary Genitourinary: Denies hematuria Musculoskeletal Musculoskeletal: Denies abnormal gait Integumentary Integumentary: Denies jaundice Neurologic Neurologic: Denies abnormal gait Hematologic/Lymphatic Hematologic/Lymphatic: Denies easy bleeding Physical Exam Const alert and oriented x3 General Appearance: cooperative HEENT normocephalic Eyes EOMs intact bilaterally Neck supple Chest Chest Narrative: Right breast with erythema and area of fluctuance at medial aspect, slightly inferior of right breast with open wound that is draining Resp normal respiratory effort GI normal to inspection, nondistended, normoactive bowel sounds Extremity normal to inspection Skin no jaundice Neuro Speech: speech normal Psych affect normal Lab / Micro Data Result Diagrams: 11/12/21 05:13 11/12/21 05:13 Labs: Laboratory Results - last 24 hr 11/11/21 09:40: S.aureus Protein A PCR NEGATIVE, MRSA (PCR) Negative 11/11/21 21:40: Vancomycin Trough 18.0 H 11/12/21 05:13: WBC 10.7, RBC 4.17 L, Hgb 12.1, Hct 38.0, MCV 91.1, MCH 29.0, MCHC 31.8 L, RDW Std Deviation 45.4 H, RDW Coeff of Yousif 13.5, Plt Count 225, MPV 10.7, Immature Gran % (Auto) 0.600, Neut % (Auto) 69.3, Lymph % (Auto) 20.2, [place] % (Auto) 6.2, Eos % (Auto) 3.2, Baso % (Auto) 0.5, Absolute Neuts (auto) 7.4, Absolute Lymphs (auto) 2.15, Nucleated RBC % 0 11/12/21 05:13: Sodium 137, Potassium 3.9, Chloride 103, Carbon Dioxide 28.0, Anion Gap 6, BUN 11, Creatinine 0.92, Estim Creat Clear Calc 57.83, Est GFR (MDRD) Af Amer 82, Est GFR (MDRD) Non-Af 68, BUN/Creatinine Ratio 12.0, Glucose 128 H, Calcium 8.4 L Micro: Microbiology 11/10/21 21:35 Wound Abcess - Breast Gram Stain - Final 11/10/21 21:35 Wound Abcess - Breast Wound Culture - Preliminary No growth-Final to follow Radiology Impression Breast Ultrasound 11/11/21 23:03 IMPRESSION: Erythema in the periareolar region. 3.3 cm x 4.4 cm x 1 cm ill-defined fluid collection just deep to the subcutaneous tissues. No jia abscess is seen. ASSESSMENT CATEGORY: BIRADS Category 2: Benign. A letter regarding these results will be sent to the patient by the facility within 30 days. Electronically Signed: Jason Dunn MD at 14:48 EDT ,
[2021-11-12 11:15] VITALS: BP 140/52; PULSE 79; RESP 18; TEMP 36.5; O2SAT 94
[2021-11-12 17:15] VITALS: BP 126/74; PULSE 82; RESP 16; TEMP 36.2; O2SAT 95
[2021-11-12 22:17] VITALS: BP 141/53; PULSE 81; RESP 16; TEMP 36.7; O2SAT 96
[2021-11-13] MEDS: oxyCODONE 5 MG Tablet PO ×5 (03:50→23:41)
[2021-11-13 03:56] VITALS: BP 125/60; PULSE 74; RESP 16; TEMP 36.5; O2SAT 95
[2021-11-13 07:53] VITALS: O2SAT 95
[2021-11-13 08:19] LABS: Absolute Lymphocyte Count 2.18 X10^3/uL (0.83-4.51); Absolute Neutrophil Count 7.2 X10^3/uL (2.0-7.7); Basophil# 0.04 X10^3/uL; Basophil% 0.4 % (0-1); Eosinophil# 0.46 X10^3/uL; Eosinophils% 4.4 % (0-5); Hematocrit 38.7 % (37-47); Hemoglobin 12.4 g/dL (12.0-15.0); Lymphocyte # 2.18 X10^3/ul (0.83-4.51); Lymphocyte % 20.7 % (19-41); Mean Corpuscular Hgb 28.9 pg (27.0-32.0); Mean Corpuscular Volume 90.2 fL (81-99); Mean Platelet Vol. 10.6 fl (6.2-12.0); Monocyte# 0.61 X10^3/uL; Monocyte% 5.8 % (0-10); NRBC Flagged by Analyzer 0 % (0-5); Neutrophil # 7.18 X10^3/uL (2.7-7.7); Neutrophil % 67.9 % (47-70); Platelet Count 250 K/mm3 (150-450); RBC Distribution Width CV 13.4 % (11.6-14.6); RBC Distribution Width SD 44.1 fl (35.1-43.9); Red Blood Count 4.29 M/mm3 (4.2-5.4); White Blood Count 10.6 K/mm3 (4.4-11.0)
[2021-11-13 08:37] LABS: Anion Gap 8 (5-15); BUN 13 mg/dL (7-18); BUN/Creat Ratio 13.5 RATIO (10-20); Calcium,Total 8.7 mg/dL (8.5-10.1); Chloride 103 mmol/L (98-107); Creatinine, Serum 0.96 mg/dL (0.55-1.02); EST Glomerular Filtration Rate 64 mL/min (>60); Est Glom Filt Rate - Afr Amer 78 mL/min (>60); Estimated Creatinine Clearance 55.42 ml/min; Glucose 117 mg/dL (74-106); Potassium 3.9 mmol/L (3.5-5.1); Sodium Level 137 mmol/L (136-145)
[2021-11-13 09:17] VITALS: BP 134/59; PULSE 82; RESP 16; TEMP 36.8; O2SAT 96
[2021-11-13] MEDS: levoFLOXacin IV 750 MG/150 ML BAG 100 MG IV (09:22)
[2021-11-13] MEDS: Enoxaparin 40 MG/0.4 ML Syringe SC ×2 (09:23→20:59)
--- NOTE | 2021-11-13 09:54 | PN.HOSP_ITS ---
Documented by User: Angelica Liang AIRCRAFT TECHNICIAN, AIRCRAFT TECHNICIAN-C 11/13/21 10:12 Subjective Subjective Patient seen and examined. Reports ongoing right breast tenderness as well as significant drainage. Denies fever, chills. Denies new symptoms or complaints. Objective Data Objective Data Vital Signs: Vital Signs Temp Pulse Resp BP Pulse Ox 98.3 F 82 16 134/59 H 96 11/13/21 09:17 11/13/21 09:17 11/13/21 09:17 11/13/21 09:17 11/13/21 09:17 Oxygen Flow Rate (L/min) 2 Oxygen Delivery Method Room Air Weight: 328 lb 0.765 oz Body Mass Index (BMI) 58.1 Intake & Output: Intake and Output for Last 24 Hours 11/11/21 11/12/21 11/13/21 23:59 23:59 23:59 Intake Total 4098.33 / 4098.33 3400 / 3600 1500 / 1500 Balance 4098.33 / 4098.33 3400 / 3600 1500 / 1500 Lab / Micro Data Result Diagrams: 11/13/21 07:50 11/13/21 07:50 Labs: Laboratory Results - last 24 hr 11/13/21 07:50: WBC 10.6, RBC 4.29, Hgb 12.4, Hct 38.7, MCV 90.2, MCH 28.9, MCHC 32.0, RDW Std Deviation 44.1 H, RDW Coeff of Yousif 13.4, Plt Count 250, MPV 10.6, Immature Gran % (Auto) 0.800, Neut % (Auto) 67.9, Lymph % (Auto) 20.7, [place] % (Auto) 5.8, Eos % (Auto) 4.4, Baso % (Auto) 0.4, Absolute Neuts (auto) 7.2, Absolute Lymphs (auto) 2.18, Nucleated RBC % 0 11/13/21 07:50: Sodium 137, Potassium 3.9, Chloride 103, Carbon Dioxide 26.0, Anion Gap 8, BUN 13, Creatinine 0.96, Estim Creat Clear Calc 55.42, Est GFR (MDRD) Af Amer 78, Est GFR (MDRD) Non-Af 64, BUN/Creatinine Ratio 13.5, Glucose 117 H, Calcium 8.7 Micro: Microbiology 11/10/21 21:35 Wound Abcess - Breast Gram Stain - Final 11/10/21 21:35 Wound Abcess - Breast Wound Culture - Final No growth aerobically. 11/10/21 23:00 Blood Culture (Wb) - Left Hand Blood Culture - Preliminary No growth in 48 hours. 11/10/21 23:05 Blood Culture (Wb) - Anticubital Right Blood Culture - Pr eliminary No growth in 48 hours. Physical Exam Const alert, oriented x3 and no apparent distress Orientation / Consciousness: awake, oriented to person, oriented to place and oriented to time Nutritional Appearance: obese HEENT normocephalic and moist oral mucous membranes Eyes PERRL, EOMs intact bilaterally and conjunctivae normal Neck no lymphadenopathy Resp clear to auscultation bilaterally Auscultation: diminished lung sounds Cardio regular rate, regular rhythm and no murmurs Peripheral Pulses: pulses 2+ throughout GI normal to inspection, nondistended, normoactive bowel sounds, non-tender and non-distended Extremity normal to inspection Skin no rashes or lesions noted Skin Narrative: Right breast cellulitis with abscess, draining purulent fluid. Overall erythema improving. Notable area of fluctuance surrounding abscess. Lesions: no lesions Rashes: no rashes Trauma: no lacerations or abrasions Neuro CN's II-XII intact bilaterally, no focal motor deficits, no sensory deficits noted and deep tendon reflexes 2+ bilaterally Psych mental status grossly normal and affect normal Assessment & Plan Assessment/Plan (1) Abscess of breast, right: PLAN: 1. Right breast abscess with cellulitis/mastitis-wound culture shows no growth. MRSA, MSSA PCR negative. Blood cultures negative. Wound RN consulted. Continue IV Vanco and IV Levaquin. As needed pain regimen. Nystatin for under breasts. Breast ultrasound demonstrates a 3.3 cm x 4.4 cm fluid collection just deep to the subcutaneous tissue at the 4 o'clock position of the breast at 5 cm from the nipple. Leukocytosis resolved. Afebrile. General surgery consulted. Plan for percutaneous drainage and catheter drain placement via ultrasound 11/14/2021. 2. Elevated blood pressure without history of hypertension-suspect secondary to acute presentation. Now improved. As needed hydralazine. 3. Chronic COPD-no exacerbation. As needed albuterol aerosol. 4. RENA-on CPAP nightly. 5. Former tobacco use-encouraged cessation. 6. Morbid obesity-diet and lifestyle modifications encouraged. 7. Prediabetes-hemoglobin A1c 5.9%. Encouraged dietary modifications. DVT prophylaxis-Lovenox, SCDs This patient was seen by LILI Cristina under the supervision of Dr. Naranjo. Discharge planning: OR tomorrow for percutaneous drainage Time spent examining patient, reviewing data and subsequent management of care: 12 minutes Documented by User: Dr. Gabi Naranjo MD 11/13/21 15:40 Objective Data Lab / Micro Data Result Diagrams: 11/13/21 07:50 11/13/21 07:50 Charges/Coding Addendum Addendum: Patient seen by Angelica PEARSON under my supervision Patient seen and examined. She has no active complaints and had an uneventful night. The abscess is still draining. Pain is much better. Review of systems is otherwise negative. O/E: Const alert, oriented x3 and no apparent distress General Appearance: cooperative HEENT normocephalic, head/scalp atraumatic, hearing grossly normal bilaterally and moist oral mucous membranes Eyes PERRL, EOMs intact bilaterally and conjunctivae normal Neck no lymphadenopathy, supple and no JVD Resp normal respiratory effort and clear to auscultation bilaterally Cardio regular rate, regular rhythm, S1 normal heart sound, S2 normal heart sound and no murmurs GI normal to inspection, nondistended, normoactive bowel sounds and soft to palpation Extremity normal to inspection, full ROM and no clubbing, cyanosis or edema Skin still has drainage with superficial ulceration beneath the right nipple, with diffuse erythema and swelling of right breast. This has improved slightly Neuro oriented x3, CN's II-XII intact bilaterally and moves all extremities Sensorium / Orientation: awake and alert Psych affect normal #Assessment and plan #Cellulitis with abscess of the right breast * Still having increased drainage from the site. On IV vancomycin and Levaquin. * Right breast USG showed a 3 x 4cm abscess * Wound care on board. * General surgery on board and recommends I&D versus insertion of percutaneous drain by radiology. Patient chooses percutaneous drainage. This will be done by radiology tomorrow * Wound cultures were negative. * #Elevated BP * This is improving. Does not have a known diagnosis of hypertension. * IV hydralazine as needed * #COPD: On breathing treatments bronchodilators. #RENA: On CPAP nightly DVT prophylaxis: Lovenox Rest as per Angelica Liang AIRCRAFT TECHNICIAN-C's note, which I have reviewed and endorsed. Total time I spent on the care of the patient today: 17 mins, with Angelica reeder spending 12 mins, making a total of 29 mins. Visit Charges Inpatient E&M: 35870 Subs Hosp L2
[2021-11-13 13:40] VITALS: BP 117/71; PULSE 76; RESP 16; TEMP 36.7; O2SAT 93
--- NOTE | 2021-11-13 13:48 | PCM.PN.SRG ---
Subjective Subjective patient complaint of right breast pain, still copious drainage patient still does not want operative I&D and prefers route of percutaneous drainage Objective Data Objective Data Vital Signs: Vital Signs Temp Pulse Resp BP Pulse Ox 98.0 F 76 16 117/71 93 11/13/21 13:40 11/13/21 13:40 11/13/21 13:40 11/13/21 13:40 11/13/21 13:40 Oxygen Flow Rate (L/min) 2 Oxygen Delivery Method Room Air Weight: 148.8 kg Body Mass Index (BMI) 58.1 Intake & Output: Intake and Output for Last 24 Hours 11/11/21 11/12/21 11/13/21 23:59 23:59 23:59 Intake Total 4098.33 / 4098.33 3400 / 3600 1650 / 1650 Balance 4098.33 / 4098.33 3400 / 3600 1650 / 1650 Lab / Micro Data Result Diagrams: 11/13/21 07:50 11/13/21 07:50 Labs: Laboratory Results - last 24 hr 11/13/21 07:50: WBC 10.6, RBC 4.29, Hgb 12.4, Hct 38.7, MCV 90.2, MCH 28.9, MCHC 32.0, RDW Std Deviation 44.1 H, RDW Coeff of Yousif 13.4, Plt Count 250, MPV 10.6, Immature Gran % (Auto) 0.800, Neut % (Auto) 67.9, Lymph % (Auto) 20.7, [place] % (Auto) 5.8, Eos % (Auto) 4.4, Baso % (Auto) 0.4, Absolute Neuts (auto) 7.2, Absolute Lymphs (auto) 2.18, Nucleated RBC % 0 11/13/21 07:50: Sodium 137, Potassium 3.9, Chloride 103, Carbon Dioxide 26.0, Anion Gap 8, BUN 13, Creatinine 0.96, Estim Creat Clear Calc 55.42, Est GFR (MDRD) Af Amer 78, Est GFR (MDRD) Non-Af 64, BUN/Creatinine Ratio 13.5, Glucose 117 H, Calcium 8.7 Micro: Microbiology 11/10/21 21:35 Wound Abcess - Breast Gram Stain - Final 11/10/21 21:35 Wound Abcess - Breast Wound Culture - Final No growth aerobically. 11/10/21 23:00 Blood Culture (Wb) - Left Hand Blood Culture - Preliminary No growth in 48 hours. 11/10/21 23:05 Blood Culture (Wb) - Anticubital Right Blood Culture - Preliminary No growth in 48 hours. Physical Exam Const alert and oriented x3 General Appearance: cooperative Neck supple Chest Chest Narrative: unchanged, erythema and induration present with drainage Assessment & Plan Assessment/Plan (1) Abscess of breast, right: PLAN: Continue present therapy
[2021-11-13] MEDS: 0.9% Saline Lock 10 ML Syringe IV (14:53)
[2021-11-13 19:45] VITALS: BP 144/48; PULSE 75; RESP 18; TEMP 36.4; O2SAT 97
[2021-11-13 22:00] LABS: Vancomycin, Trough Level 21.4 ug/mL (5.0-15.0)
--- NOTE | 2021-11-13 22:12 | PCM.RX.CS ---
Consult Pharmacy has been consulted to manage selected antiobiotic: Vancomycin Type of Consult: Follow-up Labs: Sodium 137 mmol/L (136-145) 11/13/21 07:50 Potassium 3.9 mmol/L (3.5-5.1) 11/13/21 07:50 Chloride 103 mmol/L (98-107) 11/13/21 07:50 Carbon Dioxide 26.0 mmol/L (21.0-32.0) 11/13/21 07:50 Anion Gap 8 (5-15) 11/13/21 07:50 BUN 13 mg/dL (7-18) 11/13/21 07:50 Creatinine 0.96 mg/dL (0.55-1.02) 11/13/21 07:50 Est GFR (MDRD) Af Amer 78 mL/min (>60) 11/13/21 07:50 Est GFR (MDRD) Non-Af 64 mL/min (>60) 11/13/21 07:50 BUN/Creatinine Ratio 13.5 RATIO (10-20) 11/13/21 07:50 Glucose 117 mg/dL (74-106) H 11/13/21 07:50 Vancomycin Trough 21.4 ug/mL (5.0-15.0) H 11/13/21 21:30 Microbiology: Microbiology 11/10/21 21:35 Wound Abcess - Breast Gram Stain - Final 11/10/21 21:35 Wound Abcess - Breast Wound Culture - Final No growth aerobically. 11/10/21 23:00 Blood Culture (Wb) - Left Hand Blood Culture - Preliminary No growth in 48 hours. 11/10/21 23:05 Blood Culture (Wb) - Anticubital Right Blood Culture - Preliminary No growth in 48 hours. Goal Trough: 15-20 mcg/mL Pharmacy Plan for Drug Dosing: Pharmacy Service will continue to monitor and adjust dosing as required. TROUGH 21.4 @ 7.5 HRS. THE DOSE SCHEDULED FOR 2199 WAS NOT GIVEN, HOLD DOSE AND DO FOLLOW UP RANDOM LEVEL TOMORROW MORING Follow-Up Labs: Trough Vancomycin Labs to be done on [date and time ordered]: 11/14 @ 0600 RANDOM
[2021-11-14 01:45] VITALS: BP 137/71; PULSE 97; RESP 16; TEMP 36.5; O2SAT 97
[2021-11-14] MEDS: oxyCODONE 5 MG Tablet PO ×5 (03:56→22:28)
[2021-11-14 04:02] VITALS: BP 147/55; PULSE 73; RESP 16; TEMP 36.4; O2SAT 95
[2021-11-14 06:18] LABS: Absolute Lymphocyte Count 2.38 X10^3/uL (0.83-4.51); Absolute Neutrophil Count 6.5 X10^3/uL (2.0-7.7); Basophil# 0.06 X10^3/uL; Basophil% 0.6 % (0-1); Eosinophil# 0.45 X10^3/uL; Eosinophils% 4.4 % (0-5); Hematocrit 39.6 % (37-47); Hemoglobin 12.8 g/dL (12.0-15.0); Lymphocyte # 2.38 X10^3/ul (0.83-4.51); Lymphocyte % 23.3 % (19-41); Mean Corp Hgb Conc 32.3 g/dL (32-36); Mean Corpuscular Hgb 29.4 pg (27.0-32.0); Mean Corpuscular Volume 90.8 fL (81-99); Mean Platelet Vol. 10.2 fl (6.2-12.0); Monocyte# 0.72 X10^3/uL; Monocyte% 7.1 % (0-10); NRBC Flagged by Analyzer 0 % (0-5); Neutrophil # 6.46 X10^3/uL (2.7-7.7); Neutrophil % 63.3 % (47-70); Platelet Count 250 K/mm3 (150-450); RBC Distribution Width CV 13.1 % (11.6-14.6); Red Blood Count 4.36 M/mm3 (4.2-5.4); White Blood Count 10.2 K/mm3 (4.4-11.0)
[2021-11-14 06:43] LABS: Anion Gap 6 (5-15); BUN 13 mg/dL (7-18); BUN/Creat Ratio 12.3 RATIO (10-20); Chloride 104 mmol/L (98-107); Creatinine, Serum 1.06 mg/dL (0.55-1.02); EST Glomerular Filtration Rate 57 mL/min (>60); Est Glom Filt Rate - Afr Amer 70 mL/min (>60); Estimated Creatinine Clearance 50.19 ml/min; Glucose 116 mg/dL (74-106); Potassium 4.6 mmol/L (3.5-5.1); Sodium Level 139 mmol/L (136-145)
[2021-11-14 06:46] LABS: Vancomycin, Random Level 12.4 ug/mL (0.0-15.0)
[2021-11-14 07:04] VITALS: O2SAT 92
--- NOTE | 2021-11-14 07:43 | PHA.PHARE_ITS ---
Consult Pharmacy has been consulted to manage selected antiobiotic: Vancomycin Type of Consult: Follow-up Suspected Infection: Skin/Soft tissue Prior Doses of Antibiotics Received/Current Regimen: Had been on 1500mg iv q8h. Stopped 5.8 due to random level of 21.4. Labs: Sodium 139 mmol/L (136-145) 11/14/21 06:05 Potassium 4.6 mmol/L (3.5-5.1) 11/14/21 06:05 Chloride 104 mmol/L (98-107) 11/14/21 06:05 Carbon Dioxide 29.0 mmol/L (21.0-32.0) 11/14/21 06:05 Anion Gap 6 (5-15) 11/14/21 06:05 BUN 13 mg/dL (7-18) 11/14/21 06:05 Creatinine 1.06 mg/dL (0.55-1.02) H 11/14/21 06:05 Est GFR (MDRD) Af Amer 70 mL/min (>60) 11/14/21 06:05 Est GFR (MDRD) Non-Af 57 mL/min (>60) L 11/14/21 06:05 BUN/Creatinine Ratio 12.3 RATIO (10-20) 11/14/21 06:05 Glucose 116 mg/dL (74-106) H 11/14/21 06:05 Vancomycin Trough 21.4 ug/mL (5.0-15.0) H 11/13/21 21:30 Random Vancomycin 12.4 ug/mL (0.0-15.0) 11/14/21 06:05 Microbiology: Microbiology 11/10/21 21:35 Wound Abcess - Breast Gram Stain - Final 11/10/21 21:35 Wound Abcess - Breast Wound Culture - Final No growth aerobically. 11/10/21 23:00 Blood Culture (Wb) - Left Hand Blood Culture - Preliminary No growth in 48 hours. 11/10/21 23:05 Blood Culture (Wb) - Anticubital Right Blood Culture - Preliminary No growth in 48 hours. Weight used for dosin.8 kg Estimated Creatinine Clearance: ~87ml/min Goal Trough: 15-20 mcg/mL Pharmacy Plan for Drug Dosing: Random level recheck this AM was 12.4. Will begin new dose at 1250mg iv q8h. Tr ough level ordered for before 4th dose of new regimen. Pharmacy Service will continue to monitor and adjust dosing as required. Follow-Up Labs: Trough Vancomycin - 5.10.22 @0930 before 1000 dose
[2021-11-14] MEDS: levoFLOXacin IV 750 MG/150 ML BAG 100 MG IV (08:59)
--- NOTE | 2021-11-14 09:14 | WOUNDNOTE ---
wound photo: right breast
[2021-11-14 09:37] VITALS: BP 137/65; PULSE 74; RESP 18; TEMP 36.6; O2SAT 95
[2021-11-14] MEDS: Smz/Tmp Ds Tablet 1 TABLET PO ×2 (11:09→21:47)
--- NOTE | 2021-11-14 12:00 | PN.SURG_ITS ---
Subjective Subjective patient awaiting procedure by interventional radiology still does not want operative I&D notes pain in the area Objective Data Objective Data Vital Signs: Vital Signs Temp Pulse Resp BP Pulse Ox 97.9 F 74 18 137/65 H 95 11/14/21 09:37 11/14/21 09:37 11/14/21 09:37 11/14/21 09:37 11/14/21 09:37 Oxygen Flow Rate (L/min) 2 Oxygen Delivery Method Room Air Weight: 148.8 kg Body Mass Index (BMI) 58.1 Intake & Output: Intake and Output for Last 24 Hours 11/12/21 11/13/21 11/14/21 23:59 23:59 23:59 Intake Total 3400 / 3600 2180 / 2480 350 / 350 Balance 3400 / 3600 2180 / 2480 350 / 350 Lab / Micro Data Result Diagrams: 11/14/21 06:05 11/14/21 06:05 Labs: Laboratory Results - last 24 hr 11/13/21 21:30: Vancomycin Trough 21.4 H 11/14/21 06:05: WBC 10.2, RBC 4.36, Hgb 12.8, Hct 39.6, MCV 90.8, MCH 29.4, MCHC 32.3, RDW Std Deviation 44.0 H, RDW Coeff of Yousif 13.1, Plt Count 250, MPV 10.2, Immature Gran % (Auto) 1.300 H, Neut % (Auto) 63.3, Lymph % (Auto) 23.3, [place] % (Auto) 7.1, Eos % (Auto) 4.4, Baso % (Auto) 0.6, Absolute Neuts (auto) 6.5, Absolute Lymphs (auto) 2.38, Nucleated RBC % 0 11/14/21 06:05: Sodium 139, Potassium 4.6, Chloride 104, Carbon Dioxide 29.0, Anion Gap 6, BUN 13, Creatinine 1.06 H, Estim Creat Clear Calc 50.19, Est GFR (MDRD) Af Amer 70, Est GFR (MDRD) Non-Af 57 L, BUN/Creatinine Ratio 12.3, Glucose 116 H, Calcium 9.0 11/14/21 06:05: Random Vancomycin 12.4 Micro: Microbiology 11/10/21 21:35 Wound Abcess - Breast Gram Stain - Final 11/10/21 21:35 Wound Abcess - Breast Wound Culture - Final No growth aerobically. 11/10/21 23:00 Blood Culture (Wb) - Left Hand Blood Culture - Preliminary No growth in 48 hours. 11/10/21 23:05 Blood Culture (Wb) - Anticubital Right Blood Culture - Preliminary No growth in 48 hours. Physical Exam Const alert and oriented x3 HEENT Head and Scalp: normocephalic Neck supple Chest Chest Narrative: breast examination essentially unchanged Resp normal respiratory effort Effort and Inspection: able to speak in complete sentences Assessment & Plan Assessment/Plan (1) Abscess of breast, right: PLAN: continue present therapy, awaiting procedure (patient defers operative I&D)
--- NOTE | 2021-11-14 14:03 | PN.HOSP_ITS ---
Documented by User: Angelica Liang NP, [employer]INE [employer] WORKER-C 11/14/21 14:17 Subjective Subjective Patient seen and examined. Right breast continues to have significant drainage. Denies fever, chills. Objective Data Objective Data Vital Signs: Vital Signs Temp Pulse Resp BP Pulse Ox 97.9 F 74 18 137/65 H 95 11/14/21 09:37 11/14/21 09:37 11/14/21 09:37 11/14/21 09:37 11/14/21 09:37 Oxygen Flow Rate (L/min) 2 Oxygen Delivery Method Room Air Weight: 328 lb 0.765 oz Body Mass Index (BMI) 58.1 Intake & Output: Intake and Output for Last 24 Hours 11/12/21 11/13/21 11/14/21 23:59 23:59 23:59 Intake Total 3400 / 3600 2180 / 2480 600 / 600 Balance 3400 / 3600 2180 / 2480 600 / 600 Lab / Micro Data Result Diagrams: 11/14/21 06:05 11/14/21 06:05 Labs: Laboratory Results - last 24 hr 11/13/21 21:30: Vancomycin Trough 21.4 H 11/14/21 06:05: WBC 10.2, RBC 4.36, Hgb 12.8, Hct 39.6, MCV 90.8, MCH 29.4, MCHC 32.3, RDW Std Deviation 44.0 H, RDW Coeff of Yousif 13.1, Plt Count 250, MPV 10.2, Immature Gran % (Auto) 1.300 H, Neut % (Auto) 63.3, Lymph % (Auto) 23.3, [place] % (Auto) 7.1, Eos % (Auto) 4.4, Baso % (Auto) 0.6, Absolute Neuts (auto) 6.5, Absolute Lymphs (auto) 2.38, Nucleated RBC % 0 11/14/21 06:05: Sodium 139, Potassium 4.6, Chloride 104, Carbon Dioxide 29.0, Anion Gap 6, BUN 13, Creatinine 1.06 H, Estim Creat Clear Calc 50.19, Est GFR (MDRD) Af Amer 70, Est GFR (MDRD) Non-Af 57 L, BUN/Creatinine Ratio 12.3, Glucose 116 H, Calcium 9.0 05/09/22 06:05: Random Vancomycin 12.4 Micro: Microbiology 11/10/21 21:35 Wound Abcess - Breast Gram Stain - Final 11/10/21 21:35 Wound Abcess - Breast Wound Culture - Final No growth aerobically. 11/10/21 23:00 Blood Culture (Wb) - Left Hand Blood Culture - Preliminary No growth in 48 hours. 11/10/21 23:05 Blood Culture (Wb) - Anticubital Right Blood Culture - Preliminary No growth in 48 hours. Physical Exam Const alert, oriented x3 and no apparent distress Orientation / Consciousness: awake, oriented to person, oriented to place and oriented to time Nutritional Appearance: obese HEENT normocephalic and moist oral mucous membranes Eyes PERRL, EOMs intact bilaterally and conjunctivae normal Neck no lymphadenopathy Resp normal respiratory effort and clear to auscultation bilaterally Cardio regular rate, regular rhythm and no murmurs Peripheral Pulses: pulses 2+ throughout GI normal to inspection, nondistended, normoactive bowel sounds, non-tender and non-distended Extremity normal to inspection Skin no rashes or lesions noted Skin Narrative: Right breast abscess with drainage, surrounding erythema improving. Lesions: no lesions Rashes: no rashes Trauma: no lacerations or abrasions Neuro CN's II-XII intact bilaterally, no focal motor deficits, no sensory deficits noted and deep tendon reflexes 2+ bilaterally Psych mental status grossly normal and affect normal Assessment & Plan Assessment/Plan (1) Abscess of breast, right: PLAN: 1. Right breast abscess with cellulitis/mastitis-wound culture shows no growth. MRSA, MSSA PCR negative. Blood cultures negative. Wound RN consulted. Continue IV Vanco and IV Levaquin. As needed pain regimen. Nystatin for under breasts. Breast ultrasound demonstrates a 3.3 cm x 4.4 cm fluid collection just deep to the subcutaneous tissue at the 4 o'clock position of the breast at 5 cm from the nipple. Leukocytosis resolved. Afebrile. General surgery consulted. Initially planned for percutaneous drainage and catheter drain placement via ultrasound. Dr. Saldivar to see patient for additional input. 2. Elevated blood pressure without history of hypertension-suspect secondary to acute presentation. Now improved. As needed hydralazine. 3. Chronic COPD-no exacerbation. As needed albuterol aerosol. 4. RENA-on CPAP nightly. 5. Former tobacco use-encouraged cessation. 6. Morbid obesity-diet and lifestyle modifications encouraged. 7. Prediabetes-hemoglobin A1c 5.9%. Encouraged dietary modifications. DVT prophylaxis-Lovenox, SCDs This patient was seen by LILI Cristina under the supervision of Dr. Turner. Documented by User: Dr. Mone Turner DO 11/14/21 14:50 Subjective Subjective This patient was seen in conjunction with Angelica Liang NP. The following represents my independent history and physical examination. Please see below for addendum the above. Patient reports that she has continued pain in her right breast with continued drainage and packing. Was anxious to have her drain placed today however I just recently learned that no order was placed by surgery to have this done in radiology and the case was not discussed with Dr. Dunn and therefore this will be deferred till tomorrow. The patient has also requested a second opinion from general surgery and Dr. Saldivar will be evaluating the patient. Objective Data Lab / Micro Data Result Diagrams: 11/14/21 06:05 11/14/21 06:05 Physical Exam Const alert, oriented x3, no apparent distress and well nourished Constitutional Narrative: Morbidly obese white female sitting up in a chair at the bedside, watching television, appears comfortable and nontoxic Exam Limitations: no limitations Nutritional Appearance: morbidly obese HEENT head/scalp atraumatic and moist oral mucous membranes Head and Scalp: normocephalic Resp normal respiratory effort, no retractions, no use of accessory muscles and clear to auscultation bilaterally Auscultation: Negative for crackles, rales, rhonchi or wheezes Cardio regular rate, regular rhythm, S1 normal heart sound, S2 normal heart sound, no murmurs, no rub, no gallops, no clicks and no JVD GI normal to inspection, nondistended, normoactive bowel sounds, soft to palpation, non-tender and non-distended Extremity no clubbing, cyanosis or edema Peripheral Pulses: Yes pulses 2+ throughout Skin skin turgor normal, no jaundice, no petechiae and no mottling Skin Narrative: Significant erythema at the 4 o'clock position on the right breast with an area of drainage and packing in place, appears that the area continues to drain purulent fluid, significantly tender at this area as well Neuro oriented x3, moves all extremities and no focal motor deficits Sensorium / Orientation: awake and alert Speech: speech normal Assessment & Plan Assessment/Plan (1) Abscess of breast, right: (2) Mastitis: PLAN: Assessment: Right breast abscess/cellulitis/mastitis Elevated blood pressure without history of hypertension COPD without exacerbation Insulin resistance with hemoglobin A1c of 5.9 RENA History of tobacco abuse Morbid obesity Plan: -Unfortunately an order was not placed by general surgery or the case discussed with interventional radiology for drain placement and this is unable to be performed today -Patient requesting second opinion -Breast ultrasound done on 11/11/2021 shows a 3.3 x 4.4 cm x 1 cm ill-defined fluid collection just deep to the subcutaneous tissues with no jia abscess noted -We are wondering since this is already draining if a bedside I&D would be a possibility given the superficiality of this fluid collection and the fact that it is already draining -Case was discussed with Dr. Saldivar and he will evaluate the patient later today for recommendations -Cultures are negative for any growth at this time however cultures are requested at the time of either drain placement or I&D to drive antibiotic therapy -We will continue IV antibiotics for right now -Probable discharge with an MRSA covering antibiotic along with broader coverage until final cultures can be ascertained and if unable to be obtained we will continue this for 10 to 14 days total with close outpatient follow-up -Continue pain medication -Monitor for bowel movements -As needed stool softeners -Blood pressures overall improved -Hopefully the patient can be discharged in the next 24 to 48 hours depending on overall plan Charges/Coding Visit Charges Inpatient E&M: 53032 Subs Hosp L2
[2021-11-14 15:40] VITALS: BP 135/61; PULSE 78; RESP 18; TEMP 36.8; O2SAT 95
--- NOTE | 2021-11-14 15:42 | PCM.PN.BLA ---
Progress Note Patient requesting second opinion She will be evaluated by Dr. Saldivar I will sign off this case.
--- NOTE | 2021-11-14 16:27 | EX.PCM.CON.S ---
Assessment & Plan Assessment/Plan (1) Abscess of breast, right: PLAN: This is a 56-year-old female is admitted for spreading cellulitis of the right breast infection that has now spontaneously drained. Cultures to date appear sterile. However, patient remains symptomatic with ongoing drainage, erythema, and tenderness. In my independent review of the patient's imaging, patient's area of subcutaneous fluid was very superficial to the skin?estimated depth of less than 1 cm. Correlating this with her current soft tissue defect on the right breast, it would not appear at this time that further intervention is required. I have recommended application of warm compresses to the area to try to elicit further drainage. This should be done with a frequency of once every 3 hours. We will plan to follow-up with patient tomorrow on exam. I would like patient to be held n.p.o. past midnight in anticipation of a possible operative I&D should the site look the same or worse than it did this afternoon. Patient expresses understanding of this direction, appreciation, and willingness to proceed as described. HPI Consult Data Date of Consult: 11/14/21 HPI Narrative HPI Narrative: REBECCA MARIN, is a 56 F who to [facility] with complaints of right breast swelling and tenderness. She states that she noticed something was abnormal on 11/09/2021, however, the morning of 11/10/2021 she observed significant worsening of the swelling, redness, and tenderness at that site. She denies ever experiencing something like this before (including another sites of her body). She also denies any recent insect bites. She presented initially to an urgent care facility, but was redirected to the emergency department out of concern this may be developing sepsis given the spreading redness around the site. Patient underwent ultrasound of the area showed a 4 x 3 cm fluid collection at the 4 o'clock position 5 cm from the nipple in the right breast. Patient was evaluated and offered percutaneous drain versus operative incision and drainage. Patient initially elected for the former and awaited return of interventional radiology. During this interval she experienced spontaneous drainage of the abscess and has been maintained on IV antibiotic therapy. Notably, all cultures (blood and wound) obtained from patient's admission have been negative. Patient states that the tenderness and redness both seem to be improving, but she is eager to get back home. From a woman's health perspective, patient denies any prior mammography. She reports there is no history of breast cancer in her family and she did not see the need, therefore, to obtain screening. [facility] Medical History (Updated 11/11/21 @ 00:27 by Muna Ritter) Abnormal LFTs Bacteremia due to Escherichia coli Bronchitis Chronic pain COPD (chronic obstructive pulmonary disease) CPAP (continuous positive airway pressure) dependence Former smoker Hepatic steatosis Hepatosplenomegaly Hypokalemia Hyponatremia Migraines Moderate pulmonary arterial systolic hypertension Morbid obesity Nocturnal hypoxemia Ovarian cyst Pyelonephritis Right adrenal mass Severe sepsis Sleep apnea Sleep-disordered breathing Tobacco dependence Home Medications ibuprofen 800 mg PO Q4H PRN PRN 12/10/18 [History Last Taken 11/10/21 08:00] Allergy/AdvReac Type Severity Reaction Status Date / Time Penicillins Allergy Swelling Verified 04/01/21 16:59 morphine AdvReac Other Verified 04/01/21 16:59 Family History Mother Heart disease Grandmother Heart disease Family History other Surgical History (Updated 11/10/21 @ 23:[address] Luana Muhammad MD) H/O section S/p bilateral carpal tunnel release Social History (Updated 11/10/21 @ 23:[address] Luana Muhammad MD) household members: none Smoking Status: Former smoker Tobacco: How many years used: 35 Electronic Cigarette Use: without nicotine how long ago did patient quit smoking: Smoked teen, quit 2019, 3 ppd until quit. second hand exposure: Yes alcohol intake: never substance use type: does not use Physical Exam Const alert and oriented x3 General Appearance: cooperative Chest Chest Narrative: Patient with bilaterally large breasts, but erythema across part of the lateral aspect and medial aspect of the right breast. There is some soft tissue loss (epidermis and dermis) and an area of approximately 2 to 3 cm in diameter and there is ongoing drainage the of this soft tissue loss with thin yellow fluid. Patient is exquisitely tender to palpation. There is some thickening of the breast tissue, but I am unable to express further drainage or clearly discern any underlying fluctuance. Lab / Micro Data Result Diagrams: 11/14/21 06:05 11/14/21 06:05 Labs: Laboratory Results - last 24 hr 11/13/21 21:30: Vancomycin Trough 21.4 H 11/14/21 06:05: WBC 10.2, RBC 4.36, Hgb 12.8, Hct 39.6, MCV 90.8, MCH 29.4, MCHC 32.3, RDW Std Deviation 44.0 H, RDW Coeff of Yousif 13.1, Plt Count 250, MPV 10.2, Immature Gran % (Auto) 1.300 H, Neut % (Auto) 63.3, Lymph % (Auto) 23.3, Patrick % (Auto) 7.1, Eos % (Auto) 4.4, Baso % (Auto) 0.6, Absolute Neuts (auto) 6.5, Absolute Lymphs (auto) 2.38, Nucleated RBC % 0 11/14/21 06:05: Sodium 139, Potassium 4.6, Chloride 104, Carbon Dioxide 29.0, Anion Gap 6, BUN 13, Creatinine 1.06 H, Estim Creat Clear Calc 50.19, Est GFR (MDRD) Af Amer 70, Est GFR (MDRD) Non-Af 57 L, BUN/Creatinine Ratio 12.3, Glucose 116 H, Calcium 9.0 11/14/21 06:05: Random Vancomycin 12.4 Charges/Coding Visit Charges Inpatient E&M: 20020 Init Hosp L2
[2021-11-14 21:40] VITALS: BP 157/64; PULSE 86; RESP 16; TEMP 36.8; O2SAT 96
[2021-11-14] MEDS: Enoxaparin 40 MG/0.4 ML Syringe SC (21:47)
[2021-11-15] MEDS: oxyCODONE 5 MG Tablet PO ×3 (03:35→13:39)
[2021-11-15 03:40] VITALS: BP 127/55; PULSE 75; RESP 18; TEMP 36.6; O2SAT 96
[2021-11-15] MEDS: levoFLOXacin 750 MG Tablet PO (05:41)
[2021-11-15 07:40] VITALS: O2SAT 96
--- NOTE | 2021-11-15 07:56 | PCM.PN.SRG ---
Subjective Subjective Patient seen and examined during AM rounds. She confirms that she placed a heating pad over her right breast several times throughout the night, but is uncertain what effect it had on the drainage that she has not removed her dressing. She complains of persistent tenderness this morning. Objective Data Objective Data Vital Signs: Vital Signs Temp Pulse Resp BP Pulse Ox 97.9 F 75 18 127/55 H 96 11/15/21 03:40 11/15/21 03:40 11/15/21 03:40 11/15/21 03:40 11/15/21 03:40 Oxygen Flow Rate (L/min) 2 Oxygen Delivery Method Room Air Weight: 328 lb 0.765 oz Body Mass Index (BMI) 58.1 Intake & Output: Intake and Output for Last 24 Hours 11/13/21 11/14/21 11/15/21 23:59 23:59 23:59 Intake Total 2180 / 2480 1320 / 1320 300 / 300 Balance 2180 / 2480 1320 / 1320 300 / 300 Lab / Micro Data Result Diagrams: 11/14/21 06:05 11/14/21 06:05 Micro: Microbiology 11/10/21 21:35 Wound Abcess - Breast Gram Stain - Final 11/10/21 21:35 Wound Abcess - Breast Wound Culture - Final No growth aerobically. 11/10/21 23:00 Blood Culture (Wb) - Left Hand Blood Culture - Preliminary No growth in 48 hours. 11/10/21 23:05 Blood Culture (Wb) - Anticubital Right Blood Culture - Preliminary No growth in 48 hours. Physical Exam Const no apparent distress Chest Chest Narrative: Persistent/deepened erythema medially on the right breast. Blanchable. Increased tenderness at this point. Thin yellow-brown drainage. Assessment & Plan Assessment/Plan (1) Abscess of breast, right: PLAN: This is a 56-year-old female is admitted for spreading cellulitis of the right breast infection that has now spontaneously drained. Cultures to date appear sterile. However, patient remains symptomatic with ongoing drainage, erythema, and tenderness. Patient with persistent tenderness and erythema over the medial aspect of her breast directly adjacent to her spontaneously draining wound. Given that the skin remains intact here, I believe there will be a benefit in updating the patient's ultrasound imaging today. If a fluid collection exists, would plan for operative incision and drainage of the area under local MAC. If no discernible fluid collection is found, would recommend ongoing compresses. Patient to remain n.p.o. until imaging is complete. Patient agreeable to plan as discussed. Charges/Coding Visit Charges Inpatient E&M: 22927 Subs Hosp L2
--- NOTE | 2021-11-15 08:03 | US_ITS ---
STUDY: ULTRASOUND BREAST - RIGHT REASON FOR EXAM: Female, 56 years old. Fluid collection in the right breast. TECHNIQUE: Axial and longitudinal images of the RIGHT breast were performed with a high resolution ultrasound transducer. # OF IMAGES: 45 COMPARISON: Comparison is made with prior sonogram dated 11/11/2021. FINDINGS: RIGHT Breast: There is a defect in the overlying skin. No significant fluid collection is seen at this time. US/Breast Limited Unilateral IMPRESSION: No fluid collection is seen at this time. There is evidence of an open wound overlying the area of interest. ASSESSMENT CATEGORY: BIRADS Category 2: Benign. A letter regarding these results will be sent to the patient by the facility within 30 days. Electronically Signed: Jason Dunn MD at 11:02 EDT ,
[2021-11-15 09:21] VITALS: BP 134/63; PULSE 77; RESP 18; TEMP 36.5; O2SAT 95
[2021-11-15] MEDS: Smz/Tmp Ds Tablet 1 TABLET PO (09:23)
[2021-11-15 09:43] LABS: Absolute Lymphocyte Count 1.89 X10^3/uL (0.83-4.51); Absolute Neutrophil Count 8.9 X10^3/uL (2.0-7.7); Basophil# 0.06 X10^3/uL; Basophil% 0.5 % (0-1); Eosinophil# 0.37 X10^3/uL; Eosinophils% 3.1 % (0-5); Hematocrit 41.3 % (37-47); Hemoglobin 13.4 g/dL (12.0-15.0); Lymphocyte # 1.89 X10^3/ul (0.83-4.51); Lymphocyte % 15.7 % (19-41); Mean Corp Hgb Conc 32.4 g/dL (32-36); Mean Corpuscular Hgb 29.4 pg (27.0-32.0); Mean Corpuscular Volume 90.6 fL (81-99); Monocyte# 0.65 X10^3/uL; Monocyte% 5.4 % (0-10); NRBC Flagged by Analyzer 0 % (0-5); Neutrophil # 8.92 X10^3/uL (2.7-7.7); Neutrophil % 74.1 % (47-70); Platelet Count 271 K/mm3 (150-450); RBC Distribution Width CV 13.2 % (11.6-14.6); RBC Distribution Width SD 44.1 fl (35.1-43.9); Red Blood Count 4.56 M/mm3 (4.2-5.4)
[2021-11-15 10:03] LABS: Anion Gap 7 (5-15); BUN 13 mg/dL (7-18); BUN/Creat Ratio 11.6 RATIO (10-20); Chloride 100 mmol/L (98-107); Creatinine, Serum 1.12 mg/dL (0.55-1.02); EST Glomerular Filtration Rate 54 mL/min (>60); Est Glom Filt Rate - Afr Amer 65 mL/min (>60); Glucose 112 mg/dL (74-106); Potassium 3.8 mmol/L (3.5-5.1); Sodium Level 138 mmol/L (136-145)
--- NOTE | 2021-11-15 10:28 | WOUNDNOTE ---
Pt is currently off the unit.
--- NOTE | 2021-11-15 11:39 | PCM.DC ---
Discharge Instructions Diet Discharge Diet: Carb Control Diet Activity Discharge Activity: Return to Normal Activity Dressing / Incision Call your doctor if you observe: Fever of 101 or Higher and - (increased redness right breast) Follow Up Care Test Results: Test results from this visit will be discussed in further detail at your follow-up appointment, if applicable. Discharge Plan Admission Admit Date/Time: 11/10/21 22:59 Primary Reason for Your Visit: Right breast abscess Attending Provider: Mone Turner Primary Care Provider: Leonard Franks Consulting Providers: Luana Muhammad ; Gema Carvalho ; Gabi Naranjo ; Mahesh Saldivar ; Angelica Liang P[employer] SUPERVISOR Instructions Additional Instructions / Restrictions: Continue warm compresses to right breast. Continue to cover with dry sterile dressing and change daily or as needed. Discharge Orders/Prescriptions Prescriptions: New oxycodone 5 mg Tablet 5 mg PO Q4H PRN PRN (Reason: Pain Score 4-5) 5 Days Qty: 15 RF: 0 sulfamethoxazole-trimethoprim 800-160 mg Tablet 1 tab PO BID 5 Days Qty: 10 RF: 0 levofloxacin 750 mg tablet 750 mg PO DAILY 5 Days Qty: 5 RF: 0 Continued ibuprofen 200 MG tablet 800 mg PO Q4H PRN PRN (Reason: pain and fever) RF: 0 Referrals / Follow Up: Leonard Franks MD [Primary Care Provider] - In 1 Week Mahesh Saldivar MD [STAFF PHYSICIAN] - See Referral Note (11/21/21 as scheduled) Disposition Disposition (needs filled in before D/C Order can be placed): Home, Self Care
--- NOTE | 2021-11-15 12:06 | PCM.DC.SUM ---
Documented by User: Angelica Liang NP, VENEER CLIPPER-C 11/15/21 12:15 Providers Date of Admission: 11/10/21 Date of Discharge: 11/15/21 Primary Care Physician: Dr. 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 EMERGENT Consult: No MD Notified: Yes Date Notified: 11/12/21 Time Notified: 10:04 Method of Notification: Verbal 11/14/21 14:02 Consult: General Surgery Routine Consulting Provider: Mahesh Saldivar Reason for Consult: breast abscess EMERGENT Consult: No Notified: Yes Date Notified: 11/14/21 Time Notified: 14:02 Method of Notification: Verbal Reason For Visit: R BREAST MASTITIS/ABSCESS Diagnosis Discharge Diagnosis (1) Abscess of breast, right: Status: Acute Code(s): N61.1 - Abscess of the breast and nipple Medications at Discharge Home Medications ibuprofen 800 mg PO Q4H PRN PRN 12/10/18 levofloxacin 750 mg PO DAILY 5 Days #5 tab 11/15/21 oxycodone 5 mg PO Q4H PRN PRN 5 Days #15 tab 11/15/21 sulfamethoxazole-trimethoprim 1 tab PO BID 5 Days #10 tab 11/15/21 Hospital Course Operations None Procedures None Summary of Care Provided Hospital Course: 1. Right breast abscess with cellulitis/mastitis-wound culture shows no growth. MRSA, MSSA PCR negative. Blood cultures negative. Treated with IV Vanco and IV Levaquin, transition to oral Levaquin and Bactrim until follow-up with surgery per surgery request. Initial breast ultrasound demonstrated a 3.3 cm x 4.4 cm fluid collection just deep to the subcutaneous tissue at the 4 o'clock position of the breast at 5 cm from the nipple. Repeat breast ultrasound following antibiotics and warm compress shows no fluid collection. Patient will continue warm compresses and cover with dry sterile dressing. Continue oral antibiotics until follow-up with general surgery. Follow-up with Dr. Saldivar 11/21/2021. 2. Elevated blood pressure without history of hypertension-suspect secondary to acute presentation. Blood pressure further monitored during admission and normal/stable. Continue outpatient monitoring. 3. Chronic COPD-no exacerbation. 4. RENA-on CPAP nightly. 5. Former tobacco use-encouraged cessation. 6. Morbid obesity-diet and lifestyle modifications encouraged. 7. Prediabetes-hemoglobin A1c 5.9%. Encouraged dietary modifications/carb control diet. Physical Exam Const alert, oriented x3 and no apparent distress Orientation / Consciousness: awake, oriented to person, oriented to place and oriented to time Nutritional Appearance: obese HEENT normocephalic and moist oral mucous membranes Eyes PERRL, EOMs intact bilaterally and conjunctivae normal Neck no lymphadenopathy Resp normal respiratory effort and clear to auscultation bilaterally Cardio regular rate, regular rhythm and no murmurs Peripheral Pulses: pulses 2+ throughout GI normal to inspection, nondistended, normoactive bowel sounds, non-tender and non-distended Extremity normal to inspection Skin no rashes or lesions noted Skin Narrative: Right breast abscess with drainage, surrounding erythema improved. Lesions: no lesions Rashes: no rashes Trauma: no lacerations or abrasions Neuro CN's II-XII intact bilaterally, no focal motor deficits, no sensory deficits noted and deep tendon reflexes 2+ bilaterally Psych mental status grossly normal and affect normal Patient seen and examined prior to discharge. Physical assessment as noted above. Patient is stable for discharge with follow up recommendations as noted above. This patient was seen by LILI Cristina under the supervision of Dr. Turner. Weight / BMI Weight Weight: 328 lb 0.765 oz Body Mass Index (BMI) 58.1 ABG / Lab / Microbiology Data Result Diagrams: 11/15/21 09:37 11/15/21 09:37 Laboratory: Laboratory Results - last 24 hr 11/15/21 09:37: Vancomycin Trough 3.0 L 11/15/21 09:37: WBC 12.0 H, RBC 4.56, Hgb 13.4, Hct 41.3, MCV 90.6, MCH 29.4, MCHC 32.4, RDW Std Deviation 44.1 H, RDW Coeff of Yousif 13.2, Plt Count 271, MPV 10.0, Immature Gran % (Auto) 1.200 H, Neut % (Auto) 74.1 H, Lymph % (Auto) 15.7 L, Emmons % (Auto) 5.4, Eos % (Auto) 3.1, Baso % (Auto) 0.5, Absolute Neuts (auto) 8.9 H, Absolute Lymphs (auto) 1.89, Nucleated RBC % 0 11/15/21 09:37: Sodium 138, Potassium 3.8, Chloride 100, Carbon Dioxide 31.0, Anion Gap 7, BUN 13, Creatinine 1.12 H, Estim Creat Clear Calc 47.50, Est GFR (MDRD) Af Amer 65, Est GFR (MDRD) Non-Af 54 L, BUN/Creatinine Ratio 11.6, Glucose 112 H, Calcium 9.0 Microbiology: Microbiology 11/10/21 21:35 Wound Abcess - Breast Gram Stain - Final 11/10/21 21:35 Wound Abcess - Breast Wound Culture - Final No growth aerobically. 11/10/21 23:00 Blood Culture (Wb) - Left Hand Blood Culture - Preliminary No growth in 48 hours. 11/10/21 23:05 Blood Culture (Wb) - Anticubital Right Blood Culture - Preliminary No growth in 48 hours. Radiography Diagnostic Testing: Radiology Impression Breast Ultrasound 11/15/21 08:03 IMPRESSION: No fluid collection is seen at this time. There is evidence of an open wound overlying the area of interest. ASSESSMENT CATEGORY: BIRADS Category 2: Benign. A letter regarding these results will be sent to the patient by the facility within 30 days. Electronically Signed: Jason Dunn MD at 11:02 EDT , D/C Instructions Discharge Diet: Carb Control Diet Call your doctor if you observe: Fever of 101 or Higher and - (increased redness right breast) Meaningful Use Info Meaningful Use Diagnoses (Choose all that apply): None applicable Discharge Plan Admission Admit Date/Time: 11/10/21 22:59 Primary Reason for Your Visit: Right breast abscess Attending Provider: Mone Turner Primary Care Provider: Leonard Franks Consulting Providers: Luana Muhammad ; Gema Carvalho ; Gabi Naranjo ; Mahesh Saldivar ; Angelica Liang VENEER CLIPPER Instructions Additional Instructions / Restrictions: Continue warm compresses to right breast. Continue to cover with dry sterile dressing and change daily or as needed. Discharge Orders/Prescriptions Prescriptions: New oxycodone 5 mg Tablet 5 mg PO Q4H PRN PRN (Reason: Pain Score 4-5) 5 Days Qty: 15 RF: 0 sulfamethoxazole-trimethoprim 800-160 mg Tablet 1 tab PO BID 5 Days Qty: 10 RF: 0 levofloxacin 750 mg tablet 750 mg PO DAILY 5 Days Qty: 5 RF: 0 Continued ibuprofen 200 MG tablet 800 mg PO Q4H PRN PRN (Reason: pain and fever) RF: 0 Referrals / Follow Up: Leonard Franks MD [Primary Care Provider] - In 1 Week Mahesh Saldivar MD [STAFF PHYSICIAN] - See Referral Note (11/21/21 as scheduled) Disposition Disposition (needs filled in before D/C Order can be placed): Home, Self Care Documented by User: Dr. Mone Turner DO 11/15/21 14:11 Providers Date of Admission: 11/10/21 Reason For Visit: R BREAST MASTITIS/ABSCESS Medications at Discharge Home Medications ibuprofen 800 mg PO Q4H PRN PRN 12/10/18 levofloxacin 750 mg PO DAILY 5 Days #5 tab 11/15/21 oxycodone 5 mg PO Q4H PRN PRN 5 Days #15 tab 11/15/21 sulfamethoxazole-trimethoprim 1 tab PO BID 5 Days #10 tab 11/15/21 Hospital Course Procedures - (Breast ultrasound x2) Summary of Care Provided Minutes Spent on Discharge: 40 Hospital Course: Mrs. Mota is a 56-year-old female who presented to the emergency department at [facility] on 11/10/2021 with right breast redness, pain, increase tissue temperature and purulent drainage at the 4 o'clock position of the right breast. The patient reported that she started having symptoms the day prior to presentation and again on suddenly. She had fever on the day of admission and considerable pain that she rated 10 out of 10. She went to an urgent care was referred to the emergency department. On admission she had mild tachycardia with a heart rate of 115 and normal blood pressure. Her CBC showed a white count of 17.3 with a normal hemoglobin and platelet count. She had a left shift. Coags were unremarkable. A CMP was performed and overall unremarkable. The ED physician did a bedside ultrasound did not see any specific abscess at the time of admission and wound cultures were obtained at that time. She did not meet sepsis criteria on admission and was admitted to the medical floor and given vancomycin and Levaquin. Inpatient breast ultrasound was performed on 11/11/2021 and showed a 3.3 cm x 4.4 cm x 1 cm ill-defined fluid collection just deep to the subcutaneous tissue with no jia abscess noted. Given the concern for superficial abscess the patient was seen by general surgery. Initial recommendations by general surgery were for extensive debridement and the patient was concerned with the size of incision that was being discussed and opted for drain placement which was to be performed on 11/14/2021. Upon review by radiology they did not feel that this warranted a drain placement and the patient opted for a second opinion with regards to treatment. Patient was seen by Dr. Saldivar who recommended warm compresses and continued antibiotics with reevaluation on the a.m. of 11/15/2021. He recommended a repeat ultrasound given the fact that this area was already draining and the repeat ultrasound done on 11/15/2021 showed no fluid collection and evidence of an open wound overlying the area of interest. The patient was directed in wound care for this and is to follow-up on 11/21/[address] Saldivar's office. She was placed on Levaquin and Bactrim for antibiotics. Unfortunately her cultures did not yield any growth even though the patient had not been on antibiotics prior to admission. She was discharged home in stable condition on 11/15/2021 with prescriptions for antibiotics. She was also given pain medication and recommended that she take MiraLAX daily to prevent constipation. Discharge diagnoses: Right breast abscess/cellulitis/mastitis Elevated blood pressure without history of hypertension-resolved COPD Insulin resistance-hemoglobin A1c 5.9 RENA History of tobacco abuse Morbid obesity Physical Exam Const alert, oriented x3, no apparent distress and well nourished Constitutional Narrative: Morbidly obese white female sitting up in a chair at the bedside, watching television, appears comfortable and nontoxic General Appearance: cooperative, comfortable, well kempt, well developed and appears older than stated age Orientation / Consciousness: awake, oriented to person, oriented to place and oriented to time Exam Limitations: no limitations Nutritional Appearance: morbidly obese HEENT normocephalic, head/scalp atraumatic, hearing grossly normal bilaterally and moist oral mucous membranes HEENT Narrative: Mallampati 3-4, Eyes PERRL, EOMs intact bilaterally and conjunctivae normal Eyes Narrative: No scleral icterus Neck no lymphadenopathy, supple and no JVD Neck Narrative: Trachea midline, neck is short and thick, no thyroid enlargement noted Resp normal respiratory effort, no retractions, no use of accessory muscles and clear to auscultation bilaterally Auscultation: diminished lung sounds; Negative for crackles, rales, rhonchi or wheezes Cardio regular rate, regular rhythm, S1 normal heart sound, S2 normal heart sound, no murmurs, no rub, no gallops, no clicks and no JVD Peripheral Pulses: pulses 2+ throughout GI normal to inspection, nondistended, normoactive bowel sounds, soft to palpation, non-tender and non-distended Extremity normal to inspection and no clubbing, cyanosis or edema Skin no rashes or lesions noted, skin turgor normal, no jaundice, no petechiae and no mottling Skin Narrative: Reduction in erythema at the 4 o'clock position of the right breast, area continues to drain what appears to be sanguinous fluid, tenderness improved Lesions: no lesions Rashes: no rashes Trauma: no lacerations or abrasions Neuro oriented x3, CN's II-XII intact bilaterally, moves all extremities, no focal motor deficits, no sensory deficits noted and deep tendon reflexes 2+ bilaterally Sensorium / Orientation: awake and alert Speech: speech normal Psych mental status grossly normal and affect normal ABG / Lab / Microbiology Data Result Diagrams: 11/15/21 09:37 11/15/21 09:37 Discharge Plan Admission Admit Date/Time: 11/10/21 22:59 Primary Reason for Your Visit: Right breast abscess Attending Provider: Mone Turner Primary Care Provider: Leonard Franks Consulting Providers: Luana Muhammad ; Gema Carvalho ; Gabi Naranjo ; Mahesh Saldivar ; Angelica Liang VENEER CLIPPER Instructions Additional Instructions / Restrictions: Continue warm compresses to right breast. Continue to cover with dry sterile dressing and change daily or as needed. Discharge Orders/Prescriptions Prescriptions: New oxycodone 5 mg Tablet 5 mg PO Q4H PRN PRN (Reason: Pain Score 4-5) 5 Days Qty: 15 RF: 0 sulfamethoxazole-trimethoprim 800-160 mg Tablet 1 tab PO BID 5 Days Qty: 10 RF: 0 levofloxacin 750 mg tablet 750 mg PO DAILY 5 Days Qty: 5 RF: 0 Continued ibuprofen 200 MG tablet 800 mg PO Q4H PRN PRN (Reason: pain and fever) RF: 0 Referrals / Follow Up: Leonard Franks MD [Primary Care Provider] - In 1 Week Mahesh Saldivar MD [STAFF PHYSICIAN] - See Referral Note (11/21/21 as scheduled) Disposition Disposition (needs filled in before D/C Order can be placed): Home, Self Care Charges/Coding Visit Charges Inpatient E&M: 91960 Disch Hosp
--- NOTE | 2021-11-15 15:28 | PHA.DC.MC ---
Pharmacy Service has performed discharge medication reconciliation and counseling for this patient. 1. BACTRIM DS 1T PO BID X 5 DAYS 2. LEVOFLOXACIN 750MG PO DAILY X 5 DAYS 3. OXYCODONE 5MG PO Q4H PRN PAIN The patient's discharge medication list was reviewed for discrepancies and discrepancies were resolved. Home Medications ibuprofen 800 mg PO Q4H PRN PRN 12/10/18 levofloxacin 750 mg PO DAILY 5 Days #5 tab 11/15/21 oxycodone 5 mg PO Q4H PRN PRN 5 Days #15 tab 11/15/21 sulfamethoxazole-trimethoprim 1 tab PO BID 5 Days #10 tab 11/15/21 The patient was counseled on the following discharge medications and changes in medications for homegoing were reviewed. The Reason for Use, instructions for use, and potential side effects were reviewed for all new medications. The patient's questions regarding all of their medications were answered. The patient was able to verbally demonstrate an understanding of their discharge medications.
== END 2021-11-15 16:10 | disposition home or self-care (01) | DRG 600 ==
LOC: ED 22:30 → PCU 23:10
PROVIDERS: Nurse Practitioner Family; Student in an Organized Health Care Education/Training Program; Admitting Provider Family Medicine; Emergency Provider Emergency Medicine; PCP Family Medicine; Visit Provider Internal Medicine
DX: N61.1 Abscess of the breast and nipple (principal); Z68.43 Body mass index [BMI] 50.0-59.9, adult; I27.21 Secondary pulmonary arterial hypertension; J44.9 Chronic obstructive pulmonary disease, unspecified; E66.01 Morbid (severe) obesity due to excess calories; G47.33 Obstructive sleep apnea (adult) (pediatric); N61.0 Mastitis without abscess; R73.03 Prediabetes; R03.0 Elevated blood-pressure reading, without diagnosis of hypertension; Z79.899 Other long term (current) drug therapy; Z87.891 Personal history of nicotine dependence
CPT/HCPCS: 36415; 76642; 80048; 80053; 80202; 83036; 83605; 85025; 85610; 85730; 87040; 87070; 87205; 87640; 94003; 94660; 97802; 99251; 99284; J7030; J7040; A4216; G0463; J2405

== ENCOUNTER → 2021-12-30 | Outpatient (CLI) | payer OTHER, SELFPAY ==
[2021-12-30 17:41] LABS: Absolute Neutrophil Count 7.1 X10^3/uL (2.0-7.7); Basophil# 0.07 X10^3/uL; Basophil% 0.6 % (0-1); Eosinophil# 0.38 X10^3/uL; Eosinophils% 3.5 % (0-5); Hematocrit 43.5 % (37-47); Hemoglobin 14.3 g/dL (12.0-15.0); Lymphocyte % 23.7 % (19-41); Mean Corp Hgb Conc 32.9 g/dL (32-36); Mean Corpuscular Hgb 28.9 pg (27.0-32.0); Mean Corpuscular Volume 88.1 fL (81-99); Mean Platelet Vol. 10.8 fl (6.2-12.0); Monocyte# 0.73 X10^3/uL; Monocyte% 6.7 % (0-10); NRBC Flagged by Analyzer 0 % (0-5); Neutrophil # 7.11 X10^3/uL (2.7-7.7); Platelet Count 256 K/mm3 (150-450); RBC Distribution Width CV 13.5 % (11.6-14.6); RBC Distribution Width SD 43.7 fl (35.1-43.9); Red Blood Count 4.94 M/mm3 (4.2-5.4)
[2021-12-30 18:53] LABS: ALB/GLOB Ratio 0.7 RATIO (0.9-2.4); AST(SGOT) 30 U/L (15-37); Alanine Aminotransfer ALT/SGPT 45 U/L (13-56); Albumin, Serum 3.4 g/dL (3.2-5.0); Alkaline Phosphatase 117 U/L (45-117); Anion Gap 10 (5-15); BUN 17 mg/dL (7-18); BUN/Creat Ratio 14.4 RATIO (10-20); Calcium,Total 9.3 mg/dL (8.5-10.1); Chloride 102 mmol/L (98-107); Cholesterol 212 mg/dL (200); Creatinine, Serum 1.18 mg/dL (0.55-1.02); EST Glomerular Filtration Rate 51 mL/min (>60); Est Glom Filt Rate - Afr Amer 61 mL/min (>60); Globulin 4.8 g/dL (2.2-4.2); Glucose 100 mg/dL (74-106); High Density Lipoprotein 35 mg/dL; Protein, Total 8.2 g/dL (6.4-8.2); Sodium Level 137 mmol/L (136-145); Thyroid Stim Hormone (TSH) 2.44 uIU/mL (0.358-3.74); Triglycerides 273 mg/dL; Very Low Density Lipoprotein 55 mg/dL (5-40)
== END | disposition home or self-care (01) ==
LOC: MFPLAB 16:17
PROVIDERS: PCP Family Medicine; Referring Provider Family Medicine; Visit Provider Family Medicine
DX: I10 Essential (primary) hypertension (principal); E78.5 Hyperlipidemia, unspecified
CPT/HCPCS: 36415; 80053; 80061; 84443; 85025

== ENCOUNTER → 2022-02-14 | Outpatient (CLI) | payer OTHER, SELFPAY ==
[2022-02-14 18:43] LABS: Anion Gap 8 (5-15); BUN 19 mg/dL (7-18); BUN/Creat Ratio 21.8 RATIO (10-20); Chloride 100 mmol/L (98-107); Creatinine, Serum 0.87 mg/dL (0.55-1.02); EST Glomerular Filtration Rate 72 mL/min (>60); Est Glom Filt Rate - Afr Amer 87 mL/min (>60); Glucose 87 mg/dL (74-106); Sodium Level 137 mmol/L (136-145)
== END | disposition home or self-care (01) ==
LOC: MFPLAB 16:29
PROVIDERS: PCP Family Medicine; Referring Provider Family Medicine; Visit Provider Family Medicine
DX: R94.4 Abnormal results of kidney function studies (principal)
CPT/HCPCS: 36415; 80048

== ENCOUNTER → 2022-02-27 | Outpatient (CLI) | payer OTHER, SELFPAY ==
--- NOTE | 2022-02-27 14:33 | ECHOCS_ITS ---
Reason For Study: PHTN Procedure This was a 2D Doppler, Color Flow transthoracic echocardiogram. The study was technically difficult. Contrast injection was performed. Exam performed in department. Left Ventricle Based upon the 2D echocardiographic and contrast enhanced images obtained there appears to be grossly normal left ventricular size, wall motion, and systolic function. The estimated ejection fraction is 55 %. Diastolic function is indeterminate. Right Ventricle Based upon the 2D echocardiographic images obtained there appears to be grossly normal right ventricular size and systolic function. Atria Normal left atrium. Normal right atrium. No doppler evidence for ASD. Mitral Valve The mitral valve is structurally normal. No prolapse or stenosis seen. Tricuspid Valve The tricuspid valve is not well visualized. Unable to estimate RV systolic pressure/pulmonary artery pressure due to technically difficult study. Aortic Valve The aortic valve is not well visualized. Pulmonic Valve The pulmonic valve is not well visualized. Great Vessels The aortic root is not well-visualized. Pericardium/Pleural No pericardial effusion. Medication Diluted definity 3ml given slow IV push to enhance endocardial definition. Doppler Measurements & Calculations MV E max mauro: 112.1 cm/sec Lat Peak E' Mauro: 11.8 cm/sec Med Peak E' Mauro: 5.5 cm/sec MV A max mauro: 98.4 cm/sec E/E' lat: 9.5 E/E' med: 20.4 MV E/A: 1.1 Ao V2 max: 213.6 cm/sec LV V1 max: 105.7 cm/sec PA V2 max: 145.9 cm/sec Ao max P.3 mmHg LV V1 max P.5 mmHg Ao V2 mean: 151.1 cm/sec LV V1 mean P.3 mmHg Ao mean P.9 mmHg LV V1 mean: 88.3 cm/sec Ao V2 VTI: 38.0 cm LV V1 VTI: 24.5 cm ECHO/Echo Complete W/ Contrast Interpretation Summary The study was technically difficult. Contrast injection was performed. Based upon the 2D echocardiographic and contrast enhanced images obtained there appears to be grossly normal left ventricular size, wall motion, and systolic function. The estimated ejection fraction is 55 %. Unable to estimate RV systolic pressure/pulmonary artery pressure due to techni karissa difficult study. Diastolic function is indeterminate. Ordering Physician: Leonard Franks Referring Physician: Leonard Franks Performed By: Mary Kay Zaldivar, HUGO, RVT
== END | disposition home or self-care (01) ==
PROVIDERS: PCP Family Medicine; Referring Provider Family Medicine; Visit Provider Family Medicine
DX: I27.20 Pulmonary hypertension, unspecified (principal)
CPT/HCPCS: 93306; Q9957; A4216; C8929

== ENCOUNTER → 2022-03-22 | Outpatient (CLI) | payer OTHER, SELFPAY ==
[2022-03-22 17:48] LABS: Anion Gap 9 (5-15); BUN 16 mg/dL (7-18); BUN/Creat Ratio 15.2 RATIO (10-20); Calcium,Total 9.2 mg/dL (8.5-10.1); Chloride 102 mmol/L (98-107); Creatinine, Serum 1.05 mg/dL (0.55-1.02); EST Glomerular Filtration Rate 58 mL/min (>60); Est Glom Filt Rate - Afr Amer 70 mL/min (>60); Glucose 161 mg/dL (74-106); Potassium 3.5 mmol/L (3.5-5.1); Sodium Level 138 mmol/L (136-145)
== END | disposition home or self-care (01) ==
LOC: MFPLAB 16:14
PROVIDERS: PCP Family Medicine; Referring Provider Family Medicine; Visit Provider Family Medicine
DX: R94.4 Abnormal results of kidney function studies (principal)
CPT/HCPCS: 36415; 80048

== ENCOUNTER → 2022-04-20 | Outpatient (CLI) | payer OTHER, SELFPAY ==
[2022-04-20 10:56] LABS: Anion Gap 9 (5-15); BUN 15 mg/dL (7-18); Calcium,Total 8.8 mg/dL (8.5-10.1); Chloride 104 mmol/L (98-107); Creatinine, Serum 1.07 mg/dL (0.55-1.02); EST Glomerular Filtration Rate 57 mL/min (>60); Est Glom Filt Rate - Afr Amer 69 mL/min (>60); Glucose 212 mg/dL (74-106); Potassium 3.8 mmol/L (3.5-5.1); Sodium Level 138 mmol/L (136-145)
== END | disposition home or self-care (01) ==
LOC: MFPLAB 08:13
PROVIDERS: PCP Family Medicine; Referring Provider Family Medicine; Visit Provider Family Medicine
DX: R79.89 Other specified abnormal findings of blood chemistry (principal)
CPT/HCPCS: 36415; 80048

== ENCOUNTER → 2022-04-26 | Outpatient (CLI) | payer OTHER, SELFPAY ==
--- NOTE | 2022-04-26 17:29 | CT_ITS ---
STUDY: LOW DOSE CT LUNG CANCER SCREENING REASON FOR EXAM: Female, 56 years old. Ex smoker. 3 years ago 64 pack-year history. RADIATION DOSAGE (If Supplied By Facility): CTDIvol = ( 4.02 ) mGy, DLP = ( 141.45 ) mGycm TECHNIQUE: No contrast was administered. Low dose technique was utilized (average mAS-38 and kVp 120). 1.25 mm axial source images with a slice interval of 1.25-mm were reconstructed in lung windows. 2.5 mm axial source images with a slice interval of 2.5-mm were reconstructed in lung windows. 5.0 mm axial source images with a slice interval of 5.0-mm were reconstructed in soft tissue windows. COMPARISON: Chest, 12/12/2018. CTA of the chest, 12/10/2018 NODULES: Total lung nodules (excluding granulomas): 0 Emphysema: No Endobronchial lesion: No Aorta: Normal CORONARY ARTERIES: Minimal coronary artery calcifications Heart: Normal Pulmonary artery: Normal Mediastinal nodes: Stable mediastinal lymphadenopathy Other chest and abdominal findings: Hepatosplenomegaly. CT/Low Dose CT Lung Screening IMPRESSION: Lung-RADS category 1 - Continue annual screening with LDCT in 12 months. IMPORTANT NOTES FOR USE: ACR Lung-RADS Version 1.1 Assessment Categories Release Date: 2018 Category: Coded 0-4 bases on nodule(s) with highest degree of suspicion. Negative screen is defined as categories 1 and 2; a positive screen is defined as categories 3 and 4. Category 3 and 4A nodules that are unchanged on interval CT should be coded as category 2, and individuals returned to screening in 12 months. Category 4X: Category 3 or 4 nodules with additional imaging findings that increase the suspicion of lung cancer, such as spiculation, GGN that doubles in size in 1 year, enlarged lymph notes, etc. Category Modifiers: S (significant finding unrelated to lung cancer) Electronically Signed: Kong Arzola DO at 19:24 EDT Reading Location ID and State: [address] [place] [address] Tel [phone], Service support ,
== END | disposition home or self-care (01) ==
LOC: CT 17:27
PROVIDERS: PCP Family Medicine; Referring Provider Internal Medicine Critical Care Medicine; Visit Provider Internal Medicine Critical Care Medicine
DX: Z12.2 Encounter for screening for malignant neoplasm of respiratory organs (principal); F17.211 Nicotine dependence, cigarettes, in remission; R59.0 Localized enlarged lymph nodes
CPT/HCPCS: 71271

== ENCOUNTER → 2022-05-30 | Outpatient (CLI) | payer OTHER, SELFPAY ==
--- NOTE | 2022-05-30 18:23 | PFTCOMP_ITS ---
COMPLETE PULMONARY FUNCTION TEST INTERPRETATION Brief HPI: Patient is a 56-year-old female, currently under the care of Dr. Bee, who presents to [facility] for complete pulmonary function tests secondary to diagnosis of dyspnea. Respiratory therapist reports good effort and reproducible results. Interpretation: Forced expiration spirometry shows no large airways obstructive ventilatory defect with an FEV1 of 77% predicted. There is no significant bronchodilator response by strict ATS criteria. Spirograms are of good quality and plateau normally. The respiratory flow volume loop shows a normal pattern. Lung volumes by body plethysmography show a normal total lung capacity at 4.42 L, 93% predicted. All other lung volumes are within normal limits. Diffusion capacity by carbon monoxide is at the lower limit of normal at 75% predicted. The airway resistance is normal. Compared to previous pulmonary function tests from 01/20/2019, there is been a significant improvement in DLCO by 39%. Impression: Grossly normal pulmonary function test, but spirometry and DLCO are at the lower limit of normal. There has been improvement compared to 2019
== END | disposition home or self-care (01) ==
LOC: PSN 07:51
PROVIDERS: PCP Family Medicine; Referring Provider Internal Medicine Critical Care Medicine; Visit Provider Internal Medicine Critical Care Medicine
DX: R06.02 Shortness of breath (principal); R06.00 Dyspnea, unspecified
CPT/HCPCS: 94060; 94726; 94729

== ENCOUNTER → 2022-06-06 | Outpatient (CLI) | payer OTHER, SELFPAY ==
[2022-06-06 12:25] VITALS: PULSE 100; PULSE 104; PULSE 116; PULSE 120; PULSE 82; PULSE 88; PULSE 92; PULSE 94; O2SAT 92; O2SAT 94; O2SAT 95; O2SAT 96
--- NOTE | 2022-06-06 12:43 | CPS ---
PATIENT WALK TESTING DONE ON ROOM AIR. A SHORT REST WAS TAKEN DURING MINUTES 3/4 FOR INCREASED WOB AND BACK PAIN. PATIENT STOPPED WALKING AT 5 MINUTES D/T BACK PAIN AND INCREASED WOB. HR AND PT'S PERCEIVED WOB RECOVERED QUICKLY UPON RESTING.
--- NOTE | 2022-06-06 16:34 | PCM.PSN.6M ---
PSN 6 Minute Walk Test 6 Minute Walk Test 6 Minute Walk Test: 6 Minute Walk Test PSN:6-Minute Walk Test Start: 06/06/22 12:25 Freq: Status: Active Protocol: [id number].6MINW Document 06/06/22 12:25 [facility] (Rec: 06/06/22 12:48 [facility] [id number]) 6 Minute Walk Test Date Performed 06/06/22 Time Performed 12:15 Height 5 ft 3 in Weight: 145.603 kg Weight in Pounds 321.[address]: Narinder Bee Assistive device used: None Pre-test Oxygen Delivery Method Room Air Pulse Ox (%) 95 Pulse Rate (60-100 beats/min) 82 Dyspnea Arsh Scale (0-10) 4 Reported Symptoms Increased Work of Breathing 1st minute Oxygen Delivery Method Room Air Pulse Ox (%) 96 Pulse Rate (60-100 beats/min) 94 Dyspnea Arsh Scale (0-10) 4 Number of Rests Taken 0 Reported Symptoms Increased Work of Breathing 2nd minute Oxygen Delivery Method Room Air Pulse Ox (%) 94 Pulse Rate (60-100 beats/min) 104 H Dyspnea Arsh Scale (0-10) 5 Number of Rests Taken 0 Reported Symptoms Increased Work of Breathing 3rd minute Oxygen Delivery Method Room Air Pulse Ox (%) 92 Pulse Rate (60-100 beats/min) 116 H Dyspnea Arsh Scale (0-10) 6 Number of Rests Taken 1 Reported Symptoms Increased Work of Breathing 4th minute Oxygen Delivery Method Room Air Pulse Ox (%) 92 Pulse Rate (60-100 beats/min) 120 H Dyspnea Arsh Scale (0-10) 7 Number of Rests Taken 1 Reported Symptoms Increased Work of Breathing 5th minute Oxygen Delivery Method Room Air Pulse Ox (%) 94 Pulse Rate (60-100 beats/min) 100 Dyspnea Arsh Scale (0-10) 6 Number of Rests Taken 1 Reported Symptoms Increased Work of Breathing 6th minute Oxygen Delivery Method Room Air Pulse Ox (%) 96 Pulse Rate (60-100 beats/min) 92 Dyspnea Arsh Scale (0-10) 6 Number of Rests Taken 1 Reported Symptoms Increased Work of Breathing Post-test Oxygen Delivery Method Room Air Pulse Ox (%) 96 Pulse Rate (60-100 beats/min) 88 Dyspnea Arsh Scale (0-10) 3 Full Laps Walked 8 Partial Lap, Number of Tiles Walked 17 Total Distance Walked (ft) 489 06/06/22 12:43 Cardiopulmonary Services by Rimma Mcmillan PATIENT WALK TESTING DONE ON ROOM AIR. A SHORT REST WAS TAKEN DURING MINUTES 3/4 FOR INCREASED WOB AND BACK PAIN. PATIENT STOPPED WALKING AT 5 MINUTES D/T BACK PAIN AND INCREASED WOB. HR AND PT'S PERCEIVED WOB RECOVERED QUICKLY UPON RESTING. Initialized on 06/06/22 12:43 - END OF NOTE Interpretation Interpretation: The patient was able to travel 489 feet over the course of 6 minutes on room air with no assistive devices, but for breaks. The patient had an oxygen yadiel of 92%, but tachycardia was as high as 120 bpm. These findings are consistent with deconditioning. Recommendations Recommendations: No supplemental oxygen is indicated at this time.
== END | disposition home or self-care (01) ==
LOC: PSN 12:05
PROVIDERS: PCP Family Medicine; Visit Provider Internal Medicine Critical Care Medicine
DX: R06.02 Shortness of breath (principal)
CPT/HCPCS: 94618

== ENCOUNTER → 2022-08-09 | Outpatient (CLI) | payer OTHER, SELFPAY ==
[2022-08-09 18:05] LABS: Absolute Lymphocyte Count 3.36 X10^3/uL (0.83-4.51); Absolute Neutrophil Count 5.8 X10^3/uL (2.0-7.7); Basophil# 0.06 X10^3/uL; Basophil% 0.6 % (0-1); Eosinophil# 0.44 X10^3/uL; Eosinophils% 4.2 % (0-5); Hematocrit 36.9 % (37-47); Hemoglobin 11.1 g/dL (12.0-15.0); Lymphocyte # 3.36 X10^3/ul (0.83-4.51); Lymphocyte % 32.2 % (19-41); Mean Corp Hgb Conc 30.1 g/dL (32-36); Mean Corpuscular Hgb 24.6 pg (27.0-32.0); Mean Corpuscular Volume 81.8 fL (81-99); Monocyte# 0.71 X10^3/uL; Monocyte% 6.8 % (0-10); NRBC Flagged by Analyzer 0 % (0-5); Neutrophil # 5.81 X10^3/uL (2.7-7.7); Neutrophil % 55.6 % (47-70); Platelet Count 309 K/mm3 (150-450); RBC Distribution Width CV 14.6 % (11.6-14.6); RBC Distribution Width SD 43.1 fl (35.1-43.9); Red Blood Count 4.51 M/mm3 (4.2-5.4); White Blood Count 10.4 K/mm3 (4.4-11.0)
[2022-08-09 18:49] LABS: ALB/GLOB Ratio 0.8 RATIO (0.9-2.4); AST(SGOT) 24 U/L (15-37); Alanine Aminotransfer ALT/SGPT 36 U/L (13-56); Albumin, Serum 3.7 g/dL (3.2-5.0); Alkaline Phosphatase 117 U/L (45-117); Anion Gap 7 (5-15); BUN 20 mg/dL (7-18); BUN/Creat Ratio 18.5 RATIO (10-20); Calcium,Total 9.1 mg/dL (8.5-10.1); Chloride 103 mmol/L (98-107); Cholesterol 188 mg/dL (200); Creatinine, Serum 1.08 mg/dL (0.55-1.02); EST Glomerular Filtration Rate 56 mL/min (>60); Est Glom Filt Rate - Afr Amer 68 mL/min (>60); Globulin 4.8 g/dL (2.2-4.2); Glucose 89 mg/dL (74-106); High Density Lipoprotein 36 mg/dL; Potassium 3.8 mmol/L (3.5-5.1); Protein, Total 8.5 g/dL (6.4-8.2); Sodium Level 138 mmol/L (136-145); Triglycerides 194 mg/dL; Very Low Density Lipoprotein 39 mg/dL (5-40)
[2022-08-11 12:38] LABS: Ferritin 10 ng/mL (8-252); Iron 34 ug/dL (50-170); Iron Binding Capacity,Total 564 ug/dL (250-450)
[2022-08-11 12:45] LABS: Vitamin B12 481 pg/mL (211-911)
== END | disposition home or self-care (01) ==
LOC: MFPLAB 17:00
PROVIDERS: PCP Family Medicine; Referring Provider Family Medicine; Visit Provider Family Medicine
DX: D64.9 Anemia, unspecified (principal); E66.01 Morbid (severe) obesity due to excess calories; K76.0 Fatty (change of) liver, not elsewhere classified
CPT/HCPCS: 36415; 80053; 80061; 82607; 82728; 83540; 83550; 85025

== ENCOUNTER → 2023-04-30 | Outpatient (CLI) | payer OTHER, SELFPAY ==
--- NOTE | 2023-04-30 12:19 | CT_ITS ---
STUDY: LOW DOSE CT LUNG CANCER SCREENING REASON FOR EXAM: Female, 57 years old. 3 pack per day smoker x39 years, quit 4 years ago RADIATION DOSAGE (If Supplied By Facility): CTDIvol = ( 4.02 ) mGy, DLP = ( 130.39 ) mGycm TECHNIQUE: No contrast was administered. Low dose technique was utilized (average mAS-38 and kVp 120). 1.25 mm axial source images with a slice interval of 1.25-mm were reconstructed in lung windows. 2.5 mm axial source images with a slice interval of 2.5-mm were reconstructed in lung windows. 5.0 mm axial source images with a slice interval of 5.0-mm were reconstructed in soft tissue windows. COMPARISON: None. FINDINGS: Lung windows show the lungs to the normally expanded without evidence of organizing infiltrate effusion or suspicious noncalcified mass or nodule. Limited soft tissue windows show a normal-appearing thyroid gland. No suspicious adenopathy. There are calcified coronary vessels. Bony structures show degenerative change. Limited cuts through the upper abdomen do not show a suspicious abnormality CT/Low Dose CT Lung Screening IMPRESSION: Lung-RADS category 2 - Continue annual screening with LDCT in 12 months. IMPORTANT NOTES FOR USE: ACR Lung-RADS Version 1.1 Assessment Categories Release Date: 2018 Category: Coded 0-4 bases on nodule(s) with highest degree of suspicion. Negative screen is defined as categories 1 and 2; a positive screen is defined as categories 3 and 4. Category 3 and 4A nodules that are unchanged on interval CT should be coded as category 2, and individuals returned to screening in 12 months. Category 4X: Category 3 or 4 nodules with additional imaging findings that increase the suspicion of lung cancer, such as spiculation, GGN that doubles in size in 1 year, enlarged lymph notes, etc. Category Modifiers: S (significant finding unrelated to lung cancer) Electronically Signed: Mitch Kraus MD at 14:18 EDT ,
== END | disposition home or self-care (01) ==
LOC: CT 12:19
PROVIDERS: PCP Family Medicine; Referring Provider Nurse Practitioner Acute Care; Visit Provider Nurse Practitioner Acute Care
DX: F17.211 Nicotine dependence, cigarettes, in remission (principal)
CPT/HCPCS: 71271